=== PATIENT | female | born 1945 | race Hispanic/Latino ===

== ENCOUNTER 2019-06-11 12:07 | Outpatient (RCR) | payer MEDICARE ==
[2019-06-16] MEDS ORDERED: LIDOCAINE1 EACH (14:16)
[2019-06-16] MEDS ORDERED: LEVEMIR100 UNIT/1 (14:16)
[2019-06-16] MEDS ORDERED: CALCITRIOL0.5 MCG (14:16)
[2019-06-16] MEDS ORDERED: PREDNISONE10 MG (14:16)
[2019-06-16] MEDS ORDERED: LATANOPROST2.5 ML (14:16)
[2019-06-16] MEDS ORDERED: CINACALCET HCL30 MG (14:16)
[2019-06-16] MEDS ORDERED: PANTOPRAZOLE SO40 MG (14:16)
[2019-06-16] MEDS ORDERED: PREGABALIN50 MG (14:16)
[2019-06-16] MEDS ORDERED: CARVEDILOL6.25 MG (14:16)
[2019-06-16] MEDS ORDERED: SIMVASTATIN40 MG (14:16)
[2019-06-16] MEDS ORDERED: SULFAMETHOXAZO1 EACH (14:16)
[2019-06-16] MEDS ORDERED: SEVELAMER CARB800 MG (14:16)
[2019-06-16] MEDS ORDERED: NIFEDIAC CC60 MG (14:16)
== END 2019-06-18 ==
LOC: WCC 12:07
PROVIDERS: ATTEND Family Medicine Adult Medicine
DX: E11.69 Type 2 diabetes mellitus with other specified complication (principal); L89.620 Pressure ulcer of left heel, unstageable; L89.610 Pressure ulcer of right heel, unstageable; L98.499 Non-pressure chronic ulcer of skin of other sites with unspecified severity; L98.498 Non-pressure chronic ulcer of skin of other sites with other specified severity; I73.89 Other specified peripheral vascular diseases; I70.268 Atherosclerosis of native arteries of extremities with gangrene, other extremity; N18.6 End stage renal disease; I10 Essential (primary) hypertension; A49.8 Other bacterial infections of unspecified site; I65.8 Occlusion and stenosis of other precerebral arteries; E83.59 Other disorders of calcium metabolism; D63.1 Anemia in chronic kidney disease; G99.0 Autonomic neuropathy in diseases classified elsewhere; E03.8 Other specified hypothyroidism; Z01.810 Encounter for preprocedural cardiovascular examination; Z01.811 Encounter for preprocedural respiratory examination
CPT/HCPCS: 36415 ×3; 82948 ×3; 99212; 99213; G0277 ×3

== ENCOUNTER 2019-06-16 12:39 | Inpatient (IN) | payer MEDICARE ==
[2019-06-16] VITALS (11 sets, daily range): BP systolic 81–114; BP diastolic 34–64
[~2019-06-16] VITALS: Ht 152.4 cm; Wt 77.1 kg
[2019-06-16] MEDS ORDERED: SODIUM CHLORIDE 0.9% 500ML 500 ML IV STA (12:40)
--- OUTSIDE RECORDS SUMMARY | 2019-06-16 12:44 | XMS REPORT ---
[facility] Address Unknown Phone Unavailable Care Team Providers Care Design Analyst Name Role Phone Russell NICOLE Unavailable Unavailable VLADIMIR ELDER Unavailable Unavailable ADA BROOKS Unavailable Unavailable Anne NG Unavailable Unavailable IVON JACOBO Unavailable Unavailable TIMOTHY RO Unavailable Unavailable Problems This patient has no known problems. Allergies, Adverse Reactions, Alerts This patient has no known allergies or adverse reactions. Medications This patient has no known medications. Encounters Start Date/Time End Date/Time Encounter Type Admission Type Attending Clinicians Care Facility Care Department Encounter ID 2018-12-10 10:37:00 Inpatient U [facility] [id number] 2018-12-09 08:28:43 Outpatient [facility] JASMYN [id number] 2018-12-09 08:03:00 2018-12-09 08:03:00 Outpatient E [facility] [id number] Results Test Description Test Time Test Comments Text Results Atomic Results Result Comments CHEST 2 VIEWS 2019-05-19 16:18:00 [facility] [address] [place] [id number] Patient Name: KELSIE LOGAN DR MR #: [id number] : 1945 Age/Sex: 74/F Req #: [id number] Adm Physician: Ordered by: ROBBY NICOLE MD Report #: [id number] Location: RAD Room/Bed: Procedure: [id number] DX/CHEST 2 VIEWS Exam Date: 05/19/19 Exam Time: 1548 REPORT STATUS: Signed EXAMINATION: CHEST 2 VIEWS INDICATION: Preprocedural COMPARISON: None FINDINGS: LINES/TUBES:None LUNGS:The lungs are mildly hyperinflated. No focal consolidation. There is perihilar fullness and indistinctness of the pulmonary vasculature. PLEURA:No pleural effusion or pneumothorax. MEDIASTINUM:The heart is enlarged. Postoperative findings of prior CABG. Atherosclerotic calcifications of the thoracic aorta. BONES/SOFT TISSUES:No acute osseous injury. Sternotomy wires in place. ABDOMEN:No free air under the diaphragm. IMPRESSION: Cardiomegaly and mild pulmonary interstitial edema. No focal pneumonia. Signed by: Raeann Scott MD on 05/19/2019 4:20 PM Dictated By: RAEANN SCOTT MD 1620 Transcribed By: ERNESTO on 05/19/19 1 620 COPY TO: ROBBY NICOLE MD HAND BILATERAL 3 OR MORE VIEWS 2019-05-19 16:15:00 [place] [address] Patient Name: KELSIE LOGAN DR MR #: [id number] : 1945 Age/Sex: 74/F Req #: [id number] Adm Physician: Ordered by: ROBBY NICOLE MD Report #: [id number] Location: [facility] Room/Bed: Procedure: [id number] DX/HAND BILATERAL 3 OR MORE VIEWS Exam Date: Exam Time: REPORT STATUS: Signed EXAMINATION: HAND BILATERAL 3 OR MORE VIEWS INDICATION: Atherosclerotic arterial disease, peripheral ischemia. COMPARISON: None FINDINGS: No acute fracture or dislocation of either hand. Alignment appears anatomic. Mild scattered degenerative changes. Severe diffuse atherosclerotic arterial calcifications extending to the level of the digital arteries on both sides. IMPRESSION: No acute osseous injury. Severe diffuse atherosclerotic arterial calcifications extending to the level of the digital arteries on both sides. Signed by: Raeann Scott MD on 05/19/2019 4:18 PM Dictated By: RAEANN SCOTT MD 17 Transcribed By: ERNESTO on 05/19/191617 COPY TO: ROBBY NICOLE MD POCT-GLUCOSE METER 2019-04-21 11:43:00 POC-GLUCOSE METER (BEAKER) (test vgzw=0534) 398 mg/dL 70-110 : TESTED AT [address], [address]: Licensed Nursing Assistant/Director [employer] [id number] for SANTANA, JESSIKA POCT-GLUCOSE [id number] 08:37:00* Test Item Value Reference Range Comments POC-GLUCOSE METER (BEAKER) (test acyb=6357) 401 mg/dL 70-110 : Notified RN/MD: TESTED AT [address], [address]: Licensed Nursing Assistant/Director [employer] [id number] for SANTANA, JESSIKA POCT-GLUCOSE [id number] 21:09:00* Test Item Value Reference Range Comments POC-GLUCOSE METER (BEAKER) (test ednb=6988) 263 mg/dL 70-110 : Notified RN/MD: TESTED AT [address], [address]: Licensed Nursing Assistant/Director [employer] [id number] for NOELLE MAGANA POCT-GLUCOSE [id number] 17:22:00* Test Item Value Reference Range Comments POC-GLUCOSE METER (BEAKER) (test wczm=5311) 225 mg/dL 70-110 : TESTED AT [address], [address]: Licensed Nursing Assistant/Director [employer] [id number] for SUKHWINDER STAPLETON POCT-GLUCOSE [id number] 12:39:00* Test Item Value Reference Range Comments POC-GLUCOSE METER (BEAKER) (test poxj=8467) 339 mg/dL 70-110 : TESTED AT [address], [address]: Licensed Nursing Assistant/Director [employer] [id number] for SUKHWINDER STAPLETON DOUBLE-STRANDED DNA (DSDNA) [id number] 10:32:00* Test Item Value Reference Range Comments ANTI-DNA DS (BEAKER) (test pmbw=0930) Negative POCT-GLUCOSE [id number] 07:56:00* Test Item Value Reference Range Comments POC-GLUCOSE METER (BEAKER) (test weuo=5334) 266 mg/dL 70-110 : TESTED AT [place] [id number] [facility], [address]: Licensed Nursing Assistant/Director [employer] [id number] for SUKHWINDER STAPLETON BASIC METABOLIC [id number] 06:43:00* Test Item Value Reference Range Comments SODIUM (BEAKER) (test khjs=755) 138 meq/L 136-145 POTASSIUM (BEAKER) (test nxle=472) 4.2 meq/L 3.5-5.1 CHLORIDE (BEAKER) (test tmvd=508) 97 meq/L 98-107 CO2 (BEAKER) (test gkyd=082) 20 meq/L 22-29 BLOOD UREA NITROGEN (BEAKER) (test vxke=873) 74 mg/dL 7-21 CREATININE (BEAKER) (test kqma=343) 10.03 mg/dL 0.57-1.25 GLUCOSE RANDOM (BEAKER) (test ggbu=342) 311 mg/dL 70-105 CALCIUM (BEAKER) (test lcrr=054) 8.0 mg/dL 8.4-10.2 EGFR (BEAKER) (test wdus=1138) 4 mL/min/1.73 sq m ESTIMATED GFR IS NOT ACCURATE CREATININE CLEARANCE IN PREDICTING GLOMERULAR FILTRATION RATE. ESTIMATED GFR IS NOT APPLICABLE FOR DIALYSIS PATIENTS. VANCOMYCIN LEVEL, [id number] 06:36:00* Test Item Value Reference Range Comments VANCOMYCIN RANDOM (BEAKER) (test pkyv=585) 29.8 ug/mL Reference Range: No [id number] 06:36:00* Test Item Value Reference Range Comments PHOSPHORUS (BEAKER) (test wolp=564) 6.4 mg/dL 2.3-4.7 CBC W/PLT COUNT & AUTO [id number] 05:33:00* Test Item Value Reference Range Comments WHITE BLOOD CELL COUNT (BEAKER) (test ctgs=945) 10.7 K/ L 3.5-10.5 RED BLOOD CELL COUNT (BEAKER) (test kxrc=539) 3.33 M/ L 3.93-5.22 HEMOGLOBIN (BEAKER) (test wyit=962) 9.1 GM/DL 11.2-15.7 HEMATOCRIT (BEAKER) (test vndw=853) 32.7 % 34.1-44.9 MEAN CORPUSCULAR VOLUME (BEAKER) (test vqfs=969) 98.2 fL 79.4-94.8 DISCORDANT MCV RESULT COMPARED TO PREVIOUS RESULT; CLINICAL CORRELATION REQUIRED. MEAN CORPUSCULAR HEMOGLOBIN (BEAKER) (test boar=613) 27.3 pg 25.6-32.2 MEAN CORPUSCULAR HEMOGLOBIN CONC (BEAKER) (test snah=086) 27.8 GM/DL 32.2-35.5 RED CELL DISTRIBUTION WIDTH (BEAKER) (test clod=714) 17.2 % 11.7-14.4 PLATELET COUNT (BEAKER) (test rqck=799) 158 K/CU MM 150-450 MEAN PLATELET VOLUME (BEAKER) (test brdj=143) 12.2 fL 9.4-12.3 NUCLEATED RED BLOOD CELLS (BEAKER) (test zrmp=837) 0 /100 WBC 0-0 NEUTROPHILS RELATIVE PERCENT (BEAKER) (test jnwv=947) 87 % LYMPHOCYTES RELATIVE PERCENT (BEAKER) (test iwbf=376) 8 % MONOCYTES RELATIVE PERCENT (BEAKER) (test mpql=642) 4 % EOSINOPHILS RELATIVE PERCENT (BEAKER) (test yijh=947) 0 % BASOPHILS RELATIVE PERCENT (BEAKER) (test kdec=899) 0 % NEUTROPHILS ABSOLUTE COUNT (BEAKER) (test xcif=339) 9.29 K/ L 1.56-6.13 LYMPHOCYTES ABSOLUTE COUNT (BEAKER) (test pesd=947) 0.85 K/ L 1.18-3.74 MONOCYTES ABSOLUTE COUNT (BEAKER) (test yrvv=086) 0.38 K/ L 0.24-0.36 EOSINOPHILS ABSOLUTE COUNT (BEAKER) (test dinq=434) 0.00 K/ L 0.04-0.36 BASOPHILS ABSOLUTE COUNT (BEAKER) (test dzrb=866) 0.02 K/ L 0.01-0.08 IMMATURE GRANULOCYTES-RELATIVE PERCENT (BEAKER) (test rjll=0927) 1 % 0-1 POCT-GLUCOSE [id number] 21:17:00* Test Item Value Reference Range Comments POC-GLUCOSE METER (BEAKER) (test eaac=6515) 246 mg/dL 70-110 : Notified RN/MD: TESTED AT [address], [address]: Licensed Nursing Assistant/Director [employer] [id number] for NOELLE MAGANA POCT-GLUCOSE [id number] 17:06:00* Test Item Value Reference Range Comments POC-GLUCOSE METER (BEAKER) (test alhy=2969) 247 mg/dL 70-110 : TESTED AT [address], [address]: Licensed Nursing Assistant/Director [employer] [id number] for SUKHWINDER STAPLETON POCT-GLUCOSE [id number] 12:31:00* Test Item Value Reference Range Comments POC-GLUCOSE METER (BEAKER) (test elvs=0158) 309 mg/dL 70-110 : TESTED AT [address], [address]: Licensed Nursing Assistant/Director [employer] [id number] for SUKHWINDER STAPLETON CT, CTANGIO EXTREMITY, UPPER, [id number] 10:14:00Addendum BeginsREPORT STATUS:A ADDENDUM: I agree with the previously described non vascular findings. Additional findings:1. Right upper lobe 0.5 cm solid nodule and middle lobe 0.4 cm solid nodule.Patients at low risk for lung cancer: No routine follow-upPatients at high risk for lung cancer: Optional CT at 12 months (consider follow-up if suspicious morphology and/or located in upper lobe, otherwise no follow-up). If stable at 12 months, no further follow-up.2. Ascites. Signed: Markos Araya MDReport Verified Date/Time: 04/19/2019 10:14:48 Reading Location: [place] [address] Angio Body Reading RoomAddendum EndsAddendum BeginsThis addendum contains interpretation of the head and neck portions of the exam, included because the patient's arms were positioned above the patient's head during the exam. There is no CT evidence of intracranial hemorrhage, hydrocephalus, or mass effect. Images are nondiagnostic for territorial infarct, as the diane-white differentiation is lost due to low-dose technique. No evidence of sinusitis. Skull is intact. Degenerative changes of the cervical spine without acute fracture or aggressive osseous lesions. No discrete cervical mass, fluid collection, or lymphadenopathy Addendum EndsFINAL REPORT CTA Aorta - Chest and upper extremity runoff : 04/15/2019 6:58 PM. Com parison: None available. History: 74 years old Female with ESRD, diabetes, CAD status post ACB, carotid artery disease status post left carotid stent 2009 and right carotid stent 2012 now coming with two month history of progressive bilat eral hand pain and discoloration. Evaluated for further treatment options. Indic ation: Clinically suspected peripheral vascular disease. This study is performed in an attempt to avoid an invasive procedure. There is clinical need to define thoracic aortic anatomy. Technique: Multi-detector CT technology was employed ( sensation 64 scanner). Spiral acquisition before and during intravenous contrast administration. Images were obtained before and during the dynamic passage of i ntravenous contrast material. Multi-planar 3-D volume-rendering reconstruction was performed using an independent workstation interactively by the interpreting physician as well as the 3-D specialist for optimal visualization of the thorac ic aorta as well as its proximal branches. Please refer to the contrast sheet sc anned in the [employer] system for the amount and route of contrast given. This exam w as performed according to our departmental dose-optimization programme, which in cludes automated exposure control, adjustment of the mA and/or kV according to p atient size and/or use of iterative reconstruction technique. Dose modulation, i terative reconstruction, and/or weight based adjustment of the mA/kV was utilize d to reduce the radiation dose to as low as reasonably achievable. RESULT:Potent ial study limitations: None. CHEST: The visualized thyroid gland appears unrema rkable. The chest wall is remarkable for prior median sternotomy with intact nyasia rnal suture wires. The mediastinum is unremarkable. There are small mediastinal lymph nodes, however not pathologic by size criteria. The pericardium appears unremarkable. The pulmonary arteries are normal. The lung windows: Diffuse mil d to moderate bilateral groundglass opacification with trivial bilateral pleural effusion. The central airways are patent. There is a 4 mm noncalcified nodule in the right upper lobe (image 412) and a 3 mm noncalcified nodule in the right middle lobe (image 44 nine). The cardiac chambers have normal atrioventricular and ventriculoarterial concordance, and systemic and pulmonary venous return. T he cardiac chamber sizes are notable for mild biatrial enlargement. The coronar y arteries have normal origins and courses. There are severe coronary calcifica tions and a GOINS graft to the LAD and SVG graft to the RCA identified, though th is study was not optimized for coronary artery evaluation. VASCULAR WITH ADVANCE D 3-D OFFLINE POST-PROCESSING:The aortic valve is trileaflet. The leaflets are mildly calcified. The aortic root is symmetric and normal in dimension, and is mildly calcified. The sinotubular junction is preserved. The ascending thoracic aorta and aortic arch is normal in course and caliber, with mild to moderate ca lcific changes. The arch vessel branching pattern is normal. The descending tho racic aorta is normal in course and caliber with mild to moderate diffuse calcif ic atherosclerotic changes. Also there is protruding atheroma at the diaphragmat ic segment of the descending thoracic aorta with a maximal thickness of 4 mm and the length of the protruding atheroma measuring 1 cm. Patent bilateral carotid artery stents with mild instant re-stenosis involving the right carotid artery. The right subclavian artery has moderate circumferential calcification involving the ostium with mild luminal stenosis, the minimal luminal diameter measuring 5 .6 x 5.7 mm. Thereafter the right subclavian has mild calcification with no sign ificant luminal stenosis. The right axillary artery and brachial artery are part ially visualized with minimal limitations from the blooming artifact of the IV c ontrast which was injected from the right antecubital vein. However with multipl kezia reconstruction there was no clear evidence of stenosis involving the axilla ry and brachial arteries there is mild to moderate diffuse calcific atherosclero tic changes throughout the course. There is diffuse severe calcification involvi ng the right radial and ulnar arteries along with palmar arch and palmar branche s, bilaterally (the extent of calcification was well seen on a noncontrast CT sc an) significantly limiting the assessment of luminal patency. Also there is a fo cami segment near the radial head. The artery has no calcification and no contras t opacification suggestive of subtotally occluded right radial artery. The left subclavian artery is mildly ectatic at its origin with moderate calcific athero sclerotic changes with a minimal luminal diameter measuring 8.1 x 10 mm, thereaf ter the subclavian artery is mildly calcified with normal caliber. The AV fistul a noted near the left distal brachial artery. The left axillary artery and brach ial artery are widely patent with mild calcific atherosclerotic changes. Again t here is severe diffuse calcification involving the right radial and ulnar arteri es along with palmar arch and palmar branches bilaterally significantly limiting the assessment of luminal patency. There is no acute aortic pathology, such as dissection, intramural hematoma, or contained rupture. Loss Control Representative dimensions of the thoracic aorta are as follows:*2.8 cm at the sinuses of Valsalva (measu red [id number]-[id number]-bujxf)*2.9 cm in the mid-ascending aorta*3.0 cm at the distal ascen ding aorta*2.5 cm at the mid-transverse arch*2.1 cm at the proximal descending t horacic aorta*2.1 cm at the diaphragmatic hiatus ABDOMEN:The limited images of the upper abdomen reveal no abnormalities of the imaged organs. IMPRESSION: 1. There is diffuse severe calcification involving the right and left radial and ul herlinda arteries along with palmar arch and palmar branches (the extent of calcifica tion was well seen on a noncontrast CT scan) significantly limiting the assessme nt of luminal patency. 2. The thoracic aorta is normal in course and caliber wit h mild to moderate calcification. Also there is protruding atheroma at the diaph ragmatic segment of the descending thoracic aorta with a maximal thickness of 4 mm and the length of the protruding atheroma measuring 1 cm. There is no evidenc e of acute aortic pathology, specifically, there is no dissection, intramural he matoma, or contained rupture. Other findings as described above. 3. Patent bila teral carotid artery stents with mild instant re-stenosis involving the right ca rotid artery. An addendum will be dictated regarding the non-vascular findings b y the Rn Heart Radiologist. Signed: Jamir Hayes MDReport Verified Date/Ti me: 04/16/2019 18:31:00 , CTA, [id number] 10:14:00Addendum BeginsREPORT STATUS:A ADDENDUM: I agree with the previously described non vascular findings. Additional findings:1. Right upper lobe 0.5 cm solid nodule and middle lobe 0.4 cm solid nodule.Patients at low risk for lung cancer: No routine follow-upPatients at high risk for lung cancer: Optional CT at 12 months (consider follow-up if suspicious morphology and/or located in upper lobe, otherwise no follow-up). If stable at 12 months, no further follow-up.2. Ascites. Signed: Markos Arayaeport Verified Date/Time: 04/19/2019 10:14:48 Reading Location: [place] [address] Angio Body Reading RoomAddendum EndsAddendum BeginsREPORT STATUS:A ADDENDUM: I agree with the previously described non vascular findings. Additional findings:1. Right upper l obe 0.5 cm solid nodule and middle lobe 0.4 cm solid nodule.Patients at low risk for lung cancer: No routine follow-upPatients at high risk for lung cancer: Opt ional CT at 12 months (consider follow-up if suspicious morphology and/or locate d in upper lobe, otherwise no follow-up). If stable at 12 months, no further fo llow-up.2. Ascites. Signed: Markos Arayaeport Verified Date/Time: 04/19/20 19 10:14:48 Reading Location: [place] [address] Angio Body Reading RoomAddendum EndsAd dendum BeginsREPORT STATUS:A ADDENDUM: I agree with the p reviously described non vascular findings. Additional findings:1. Right upper lo be 0.5 cm solid nodule and middle lobe 0.4 cm solid nodule.Patients at low risk for lung cancer: No routine follow-upPatients at high risk for lung cancer: Opti onal CT at 12 months (consider follow-up if suspicious morphology and/or located in upper lobe, otherwise no follow-up). If stable at 12 months, no further fol low-up.2. Ascites. Signed: Markos Arayaeport Verified Date/Time: 9 10:14:48 Reading Location: [place] [address] Angio Body Reading RoomAddendum EndsAdd endum BeginsThis addendum contains interpretation of the head and neck portions of the exam, included because the patient's arms were positioned above the patie nt's head during the exam. There is no CT evidence of intracranial hemorrhage, hydrocephalus, or mass effect. Images are nondiagnostic for territorial infarct, as the diane-white differentiation is lost due to low-dose technique. No evidence of sinusitis. Skull is intact. Degenerative changes of the cervical spine w ithout acute fracture or aggressive osseous lesions. No discrete cervical mass, fluid collection, or lymphadenopathy Addendum EndsFINAL REPORT PATIENT ID: [id number] CTA Aorta - Chest and upper extremity runoff : 04/15/2019 6:58 PM. Sanju rison: None available. History: 74 years old Female with ESRD, diabetes, CAD s tatus post ACB, carotid artery disease status post left carotid stent 2009 and r ight carotid stent 2012 now coming with two month history of progressive bilater al hand pain and discoloration. Evaluated for further treatment options. Indicat ion: Clinically suspected peripheral vascular disease. This study is performed i n an attempt to avoid an invasive procedure. There is clinical need to define th oracic aortic anatomy. Technique: Multi-detector CT technology was employed (se nsation 64 scanner). Spiral acquisition before and during intravenous contrast a dministration. Images were obtained before and during the dynamic passage of int ravenous contrast material. Multi-planar 3-D volume-rendering reconstruction wa s performed using an independent workstation interactively by the interpreting p jose as well as the 3-D specialist for optimal visualization of the thoracic aorta as well as its proximal branches. Please refer to the contrast sheet scan margarita in the [employer] system for the amount and route of contrast given. This exam was performed according to our departmental dose-optimization programme, which incl udes automated exposure control, adjustment of the mA and/or kV according to pat ient size and/or use of iterative reconstruction technique. Dose modulation, ite rative reconstruction, and/or weight based adjustment of the mA/kV was utilized to reduce the radiation dose to as low as reasonably achievable. RESULT:Potentia l study limitations: None. CHEST: The visualized thyroid gland appears unremark able. The chest wall is remarkable for prior median sternotomy with intact morejon al suture wires. The mediastinum is unremarkable. There are small mediastinal l ymph nodes, however not pathologic by size criteria. The pericardium appears un remarkable. The pulmonary arteries are normal. The lung windows: Diffuse mild to moderate bilateral groundglass opacification with trivial bilateral pleural e ffusion. The central airways are patent. There is a 4 mm noncalcified nodule in the right upper lobe (image 412) and a 3 mm noncalcified nodule in the right mi ddle lobe (image 44 nine). The cardiac chambers have normal atrioventricular an d ventriculoarterial concordance, and systemic and pulmonary venous return. The cardiac chamber sizes are notable for mild biatrial enlargement. The coronary arteries have normal origins and courses. There are severe coronary calcificati ons and a GOINS graft to the LAD and SVG graft to the RCA identified, though this study was not optimized for coronary artery evaluation. VASCULAR WITH ADVANCED 3-D OFFLINE POST-PROCESSING:The aortic valve is trileaflet. The leaflets are mi ldly calcified. The aortic root is symmetric and normal in dimension, and is mi ldly calcified. The sinotubular junction is preserved. The ascending thoracic a nancy and aortic arch is normal in course and caliber, with mild to moderate calc ific changes. The arch vessel branching pattern is normal. The descending thora cic aorta is normal in course and caliber with mild to moderate diffuse calcific atherosclerotic changes. Also there is protruding atheroma at the diaphragmatic segment of the descending thoracic aorta with a maximal thickness of 4 mm and t he length of the protruding atheroma measuring 1 cm. Patent bilateral carotid ar jazmyn stents with mild instant re-stenosis involving the right carotid artery. Th e right subclavian artery has moderate circumferential calcification involving t he ostium with mild luminal stenosis, the minimal luminal diameter measuring 5.6 x 5.7 mm. Thereafter the right subclavian has mild calcification with no signif icant luminal stenosis. The right axillary artery and brachial artery are partia lly visualized with minimal limitations from the blooming artifact of the IV con trast which was injected from the right antecubital vein. However with multiplan ar reconstruction there was no clear evidence of stenosis involving the axillary and brachial arteries there is mild to moderate diffuse calcific atherosclerotic changes throughout the course. There is diffuse severe calcification involving the right radial and ulnar arteries along with palmar arch and palmar branches, bilaterally (the extent of calcification was well seen on a noncontrast CT scan) significantly limiting the assessment of luminal patency. Also there is a focal segment near the radial head. The artery has no calcification and no contrast opacification suggestive of subtotally occluded right radial artery. The left s ubclavian artery is mildly ectatic at its origin with moderate calcific atherosc lerotic changes with a minimal luminal diameter measuring 8.1 x 10 mm, thereafte r the subclavian artery is mildly calcified with normal caliber. The AV fistula noted near the left distal brachial artery. The left axillary artery and brachia l artery are widely patent with mild calcific atherosclerotic changes. Again the re is severe diffuse calcification involving the right radial and ulnar arteries along with palmar arch and palmar branches bilaterally significantly limiting t he assessment of luminal patency. There is no acute aortic pathology, such as d issection, intramural hematoma, or contained rupture. Loss Control Representative dimensions of the thoracic aorta are as follows:*2.8 cm at the sinuses of Valsalva (measure d dlxka-jy-tqpht)*2.9 cm in the mid-ascending aorta*3.0 cm at the distal ascendi ng aorta*2.5 cm at the mid-transverse arch*2.1 cm at the proximal descending tho racic aorta*2.1 cm at the diaphragmatic hiatus ABDOMEN:The limited images of th e upper abdomen reveal no abnormalities of the imaged organs. IMPRESSION: 1. Th ere is diffuse severe calcification involving the right and left radial and ulna r arteries along with palmar arch and palmar branches (the extent of calcificati on was well seen on a noncontrast CT scan) significantly limiting the assessment of luminal patency. 2. The thoracic aorta is normal in course and caliber with mild to moderate calcification. Also there is protruding atheroma at the diaphra gmatic segment of the descending thoracic aorta with a maximal thickness of 4 mm and the length of the protruding atheroma measuring 1 cm. There is no evidence of acute aortic pathology, specifically, there is no dissection, intramural beau rip, or contained rupture. Other findings as described above. 3. Patent bilate ral carotid artery stents with mild instant re-stenosis involving the right tracy tid artery. An addendum will be dictated regarding the non-vascular findings by the Rn Heart Radiologist. Signed: Jamir Hayes MDReport Verified Date/Time : 04/16/2019 12:27:51 , CTANGIO EXTREMITY, UPPER, [id number] 10:14:00 Addendum BeginsREPORT STATUS:A ADDENDUM: I agree with the previously described non vascular findings. Additional findings:1. Right upper lobe 0.5 cm solid nodule and middle lobe 0.4 cm solid nodule.Patients at low ris k for lung cancer: No routine follow-upPatients at high risk for lung cancer: Op tional CT at 12 months (consider follow-up if suspicious morphology and/or locat ed in upper lobe, otherwise no follow-up). If stable at 12 months, no further f ollow-up.2. Ascites. Signed: Markos Arayaeport Verified Date/Time: 019 10:14:48 Reading Location: [place] [address] Angio Body Reading RoomAddendum EndsA ddendum BeginsREPORT STATUS:A ADDENDUM: I agree with the previously described non vascular findings. Additional findings:1. Right upper l obe 0.5 cm solid nodule and middle lobe 0.4 cm solid nodule.Patients at low risk for lung cancer: No routine follow-upPatients at high risk for lung cancer: Opt ional CT at 12 months (consider follow-up if suspicious morphology and/or locate d in upper lobe, otherwise no follow-up). If stable at 12 months, no further fo llow-up.2. Ascites. Signed: Markos Arayaeport Verified Date/Time: 04/19/20 19 10:14:48 Reading Location: [place] [address] Angio Body Reading RoomAddendum EndsAd dendum BeginsREPORT STATUS:A ADDENDUM: I agree with the p reviously described non vascular findings. Additional findings:1. Right upper lo be 0.5 cm solid nodule and middle lobe 0.4 cm solid nodule.Patients at low risk for lung cancer: No routine follow-upPatients at high risk for lung cancer: Opti onal CT at 12 months (consider follow-up if suspicious morphology and/or located in upper lobe, otherwise no follow-up). If stable at 12 months, no further fol low-up.2. Ascites. Signed: Markos Araya MDReport Verified Date/Time: 9 10:14:48 Reading Location: [place] [address] Angio Body Reading RoomAddendum EndsAdd endum BeginsThis addendum contains interpretation of the head and neck portions of the exam, included because the patient's arms were positioned above the patie nt's head during the exam. There is no CT evidence of intracranial hemorrhage, hydrocephalus, or mass effect. Images are nondiagnostic for territorial infarct, as the diane-white differentiation is lost due to low-dose technique. No evidence of sinusitis. Skull is intact. Degenerative changes of the cervical spine w ithout acute fracture or aggressive osseous lesions. No discrete cervical mass, fluid collection, or lymphadenopathy Addendum EndsFINAL REPORT PATIENT ID: [id number] CTA Aorta - Chest and upper extremity runoff : 04/15/2019 6:58 PM. Sanju rison: None available. History: 74 years old Female with ESRD, diabetes, CAD s tatus post ACB, carotid artery disease status post left carotid stent 2009 and r ight carotid stent 2012 now coming with two month history of progressive bilater al hand pain and discoloration. Evaluated for further treatment options. Indicat ion: Clinically suspected peripheral vascular disease. This study is performed i n an attempt to avoid an invasive procedure. There is clinical need to define th oracic aortic anatomy. Technique: Multi-detector CT technology was employed (se nsation 64 scanner). Spiral acquisition before and during intravenous contrast a dministration. Images were obtained before and during the dynamic passage of int ravenous contrast material. Multi-planar 3-D volume-rendering reconstruction wa s performed using an independent workstation interactively by the interpreting p jose as well as the 3-D specialist for optimal visualization of the thoracic aorta as well as its proximal branches. Please refer to the contrast sheet scan margarita in the [employer] system for the amount and route of contrast given. This exam was performed according to our departmental dose-optimization programme, which incl udes automated exposure control, adjustment of the mA and/or kV according to pat ient size and/or use of iterative reconstruction technique. Dose modulation, ite rative reconstruction, and/or weight based adjustment of the mA/kV was utilized to reduce the radiation dose to as low as reasonably achievable. RESULT:Potentia l study limitations: None. CHEST: The visualized thyroid gland appears unremark able. The chest wall is remarkable for prior median sternotomy with intact morejon al suture wires. The mediastinum is unremarkable. There are small mediastinal l ymph nodes, however not pathologic by size criteria. The pericardium appears un remarkable. The pulmonary arteries are normal. The lung windows: Diffuse mild to moderate bilateral groundglass opacification with trivial bilateral pleural e ffusion. The central airways are patent. There is a 4 mm noncalcified nodule in the right upper lobe (image 412) and a 3 mm noncalcified nodule in the right mi ddle lobe (image [id number]). The cardiac chambers have normal atrioventricular an d ventriculoarterial concordance, and systemic and pulmonary venous return. The cardiac chamber sizes are notable for mild biatrial enlargement. The coronary arteries have normal origins and courses. There are severe coronary calcificati ons and a GOINS graft to the LAD and SVG graft to the RCA identified, though this study was not optimized for coronary artery evaluation. VASCULAR WITH ADVANCED 3-D OFFLINE POST-PROCESSING:The aortic valve is trileaflet. The leaflets are mi ldly calcified. The aortic root is symmetric and normal in dimension, and is mi ldly calcified. The sinotubular junction is preserved. The ascending thoracic a nancy and aortic arch is normal in course and caliber, with mild to moderate calc ific changes. The arch vessel branching pattern is normal. The descending thora cic aorta is normal in course and caliber with mild to moderate diffuse calcific atherosclerotic changes. Also there is protruding atheroma at the diaphragmatic segment of the descending thoracic aorta with a maximal thickness of 4 mm and t he length of the protruding atheroma measuring 1 cm. Patent bilateral carotid ar jazmyn stents with mild instant re-stenosis involving the right carotid artery. Th e right subclavian artery has moderate circumferential calcification involving t he ostium with mild luminal stenosis, the minimal luminal diameter measuring 5.6 x 5.7 mm. Thereafter the right subclavian has mild calcification with no signif icant luminal stenosis. The right axillary artery and brachial artery are partia lly visualized with minimal limitations from the blooming artifact of the IV con trast which was injected from the right antecubital vein. However with multiplan ar reconstruction there was no clear evidence of stenosis involving the axillary and brachial arteries there is mild to moderate diffuse calcific atherosclerotic changes throughout the course. There is diffuse severe calcification involving the right radial and ulnar arteries along with palmar arch and palmar branches, bilaterally (the extent of calcification was well seen on a noncontrast CT scan) significantly limiting the assessment of luminal patency. Also there is a focal segment near the radial head. The artery has no calcification and no contrast opacification suggestive of subtotally occluded right radial artery. The left s ubclavian artery is mildly ectatic at its origin with moderate calcific atherosc lerotic changes with a minimal luminal diameter measuring 8.1 x 10 mm, thereafte r the subclavian artery is mildly calcified with normal caliber. The AV fistula noted near the left distal brachial artery. The left axillary artery and brachia l artery are widely patent with mild calcific atherosclerotic changes. Again the re is severe diffuse calcification involving the right radial and ulnar arteries along with palmar arch and palmar branches bilaterally significantly limiting t he assessment of luminal patency. There is no acute aortic pathology, such as d issection, intramural hematoma, or contained rupture. Loss Control Representative dimensions of the thoracic aorta are as follows:*2.8 cm at the sinuses of Valsalva (measure d qjjxj-wd-yxepg)*2.9 cm in the mid-ascending aorta*3.0 cm at the distal ascendi ng aorta*2.5 cm at the mid-transverse arch*2.1 cm at the proximal descending tho racic aorta*2.1 cm at the diaphragmatic hiatus ABDOMEN:The limited images of th e upper abdomen reveal no abnormalities of the imaged organs. IMPRESSION: 1. Th ere is diffuse severe calcification involving the right and left radial and ulna r arteries along with palmar arch and palmar branches (the extent of calcificati on was well seen on a noncontrast CT scan) significantly limiting the assessment of luminal patency. 2. The thoracic aorta is normal in course and caliber with mild to moderate calcification. Also there is protruding atheroma at the diaphra gmatic segment of the descending thoracic aorta with a maximal thickness of 4 mm and the length of the protruding atheroma measuring 1 cm. There is no evidence of acute aortic pathology, specifically, there is no dissection, intramural beau rip, or contained rupture. Other findings as described above. 3. Patent bilate ral carotid artery stents with mild instant re-stenosis involving the right tracy tid artery. An addendum will be dictated regarding the non-vascular findings by the Rn Heart Radiologist. Signed: Jamir Hayes Verified Date/Time : 04/16/2019 12:27:51 -GLUCOSE [id number] 08:02:00* Test Item Value Reference Range Comments POC-GLUCOSE METER (BEAKER) (test nddt=7968) 310 mg/dL 70-110 : TESTED AT [facility] [address] [facility], [address]: Licensed Nursing Assistant/Director [employer] [id number] for SUKHWINDER STAPLETON BASIC METABOLIC [id number] 07:48:00* Test Item Value Reference Range Comments SODIUM (BEAKER) (test hdvm=945) 134 meq/L 136-145 POTASSIUM (BEAKER) (test piep=159) 4.5 meq/L 3.5-5.1 CHLORIDE (BEAKER) (test jmcv=965) 93 meq/L 98-107 CO2 (BEAKER) (test nisq=349) 20 meq/L 22-29 BLOOD UREA NITROGEN (BEAKER) (test hdtf=909) 68 mg/dL 7-21 CREATININE (BEAKER) (test okuf=872) 10.04 mg/dL 0.57-1.25 GLUCOSE RANDOM (BEAKER) (test fhwg=630) 334 mg/dL 70-105 CALCIUM (BEAKER) (test maoi=301) 8.1 mg/dL 8.4-10.2 EGFR (BEAKER) (test smmd=7718) 4 mL/min/1.73 sq m ESTIMATED GFR IS NOT ACCURATE CREATININE CLEARANCE IN PREDICTING GLOMERULAR FILTRATION RATE. ESTIMATED GFR IS NOT APPLICABLE FOR DIALYSIS PATIENTS. CBC W/PLT COUNT & AUTO [id number] 07:10:00* Test Item Value Reference Range Comments WHITE BLOOD CELL COUNT (BEAKER) (test gplq=150) 12.2 K/ L 3.5-10.5 RED BLOOD CELL COUNT (BEAKER) (test beyr=374) 3.53 M/ L 3.93-5.22 HEMOGLOBIN (BEAKER) (test dkty=377) 9.5 GM/DL 11.2-15.7 HEMATOCRIT (BEAKER) (test dqqh=298) 32.8 % 34.1-44.9 MEAN CORPUSCULAR VOLUME (BEAKER) (test gikm=802) 92.9 fL 79.4-94.8 MEAN CORPUSCULAR HEMOGLOBIN (BEAKER) (test mxww=655) 26.9 pg 25.6-32.2 MEAN CORPUSCULAR HEMOGLOBIN CONC (BEAKER) (test wzaz=080) 29.0 GM/DL 32.2-35.5 RED CELL DISTRIBUTION WIDTH (BEAKER) (test ackj=078) 17.2 % 11.7-14.4 PLATELET COUNT (BEAKER) (test bgna=771) 145 K/CU MM 150-450 MEAN PLATELET VOLUME (BEAKER) (test dxmk=505) 12.5 fL 9.4-12.3 NUCLEATED RED BLOOD CELLS (BEAKER) (test exga=766) 0 /100 WBC 0-0 NEUTROPHILS RELATIVE PERCENT (BEAKER) (test naxt=040) 90 % LYMPHOCYTES RELATIVE PERCENT (BEAKER) (test nlvv=066) 7 % MONOCYTES RELATIVE PERCENT (BEAKER) (test zauq=517) 2 % EOSINOPHILS RELATIVE PERCENT (BEAKER) (test wnhz=401) 0 % BASOPHILS RELATIVE PERCENT (BEAKER) (test gsdz=932) 0 % NEUTROPHILS ABSOLUTE COUNT (BEAKER) (test nvmn=091) 11.03 K/ L 1.56-6.13 LYMPHOCYTES ABSOLUTE COUNT (BEAKER) (test ebbj=806) 0.85 K/ L 1.18-3.74 MONOCYTES ABSOLUTE COUNT (BEAKER) (test nvfo=692) 0.21 K/ L 0.24-0.36 EOSINOPHILS ABSOLUTE COUNT (BEAKER) (test ccla=309) 0.00 K/ L 0.04-0.36 BASOPHILS ABSOLUTE COUNT (BEAKER) (test vyyj=294) 0.01 K/ L 0.01-0.08 IMMATURE GRANULOCYTES-RELATIVE PERCENT (BEAKER) (test ogcn=7962) 1 % 0-1 POCT-GLUCOSE [id number] 22:24:00* Test Item Value Reference Range Comments POC-GLUCOSE METER (BEAKER) (test hxsv=1524) 300 mg/dL 70-110 : TESTED AT [place] [id number] [facility], [address]: Licensed Nursing Assistant/Director [employer] [id number] for SANTHOSH MORROW POCT-GLUCOSE [id number] 18:25:00* Test Item Value Reference Range Comments POC-GLUCOSE METER (BEAKER) (test lnfx=8650) 238 mg/dL 70-110 : TESTED AT [place] [id number] [facility], [address]: Licensed Nursing Assistant/Director [employer] [id number] for STEFANY DEMPSEY POCT-GLUCOSE [id number] 11:48:00* Test Item Value Reference Range Comments POC-GLUCOSE METER (BEAKER) (test dres=1483) 345 mg/dL 70-110 : TESTED AT [facility] [address] [facility], [address]: Licensed Nursing Assistant/Director [employer] [id number] for STEFANY DEMPSEY BASIC METABOLIC [id number] 09:51:00* Test Item Value Reference Range Comments SODIUM (BEAKER) (test tejs=362) 136 meq/L 136-145 POTASSIUM (BEAKER) (test bxdq=063) 4.6 meq/L 3.5-5.1 CHLORIDE (BEAKER) (test ddvm=512) 93 meq/L 98-107 CO2 (BEAKER) (test xmug=953) 25 meq/L 22-29 BLOOD UREA NITROGEN (BEAKER) (test qoid=601) 65 mg/dL 7-21 CREATININE (BEAKER) (test xmrp=673) 10.51 mg/dL 0.57-1.25 GLUCOSE RANDOM (BEAKER) (test yznc=816) 404 mg/dL 70-105 CALCIUM (BEAKER) (test dvca=660) 8.5 mg/dL 8.4-10.2 EGFR (BEAKER) (test cqml=7282) 4 mL/min/1.73 sq m ESTIMATED GFR IS NOT ACCURATE CREATININE CLEARANCE IN PREDICTING GLOMERULAR FILTRATION RATE. ESTIMATED GFR IS NOT APPLICABLE FOR DIALYSIS PATIENTS. CBC W/PLT COUNT & AUTO [id number] 09:22:00* Test Item Value Reference Range Comments WHITE BLOOD CELL COUNT (BEAKER) (test awcl=919) 13.8 K/ L 3.5-10.5 RED BLOOD CELL COUNT (BEAKER) (test sjyd=778) 3.86 M/ L 3.93-5.22 HEMOGLOBIN (BEAKER) (test vxoq=274) 10.2 GM/DL 11.2-15.7 HEMATOCRIT (BEAKER) (test sexx=818) 35.4 % 34.1-44.9 MEAN CORPUSCULAR VOLUME (BEAKER) (test mhpy=767) 91.7 fL 79.4-94.8 MEAN CORPUSCULAR HEMOGLOBIN (BEAKER) (test utfw=569) 26.4 pg 25.6-32.2 MEAN CORPUSCULAR HEMOGLOBIN CONC (BEAKER) (test znid=891) 28.8 GM/DL 32.2-35.5 RED CELL DISTRIBUTION WIDTH (BEAKER) (test ftep=717) 17.2 % 11.7-14.4 PLATELET COUNT (BEAKER) (test bqog=492) 160 K/CU MM 150-450 MEAN PLATELET VOLUME (BEAKER) (test rdnb=067) 12.2 fL 9.4-12.3 NUCLEATED RED BLOOD CELLS (BEAKER) (test npvl=401) 0 /100 WBC 0-0 NEUTROPHILS RELATIVE PERCENT (BEAKER) (test ybwr=595) 91 % LYMPHOCYTES RELATIVE PERCENT (BEAKER) (test fckm=415) 7 % MONOCYTES RELATIVE PERCENT (BEAKER) (test ttxv=715) 2 % EOSINOPHILS RELATIVE PERCENT (BEAKER) (test crib=272) 0 % BASOPHILS RELATIVE PERCENT (BEAKER) (test tsia=699) 0 % NEUTROPHILS ABSOLUTE COUNT (BEAKER) (test qrsx=649) 12.54 K/ L 1.56-6.13 LYMPHOCYTES ABSOLUTE COUNT (BEAKER) (test veaw=780) 0.90 K/ L 1.18-3.74 MONOCYTES ABSOLUTE COUNT (BEAKER) (test ndwx=936) 0.27 K/ L 0.24-0.36 EOSINOPHILS ABSOLUTE COUNT (BEAKER) (test flsm=763) 0.00 K/ L 0.04-0.36 BASOPHILS ABSOLUTE COUNT (BEAKER) (test ibcv=617) 0.01 K/ L 0.01-0.08 IMMATURE GRANULOCYTES-RELATIVE PERCENT (BEAKER) (test pbzx=8043) 1 % 0-1 POCT-GLUCOSE [id number] 07:40:00* Test Item Value Reference Range Comments POC-GLUCOSE METER (BEAKER) (test vrlz=3222) 369 mg/dL 70-110 : TESTED AT [facility] [address] [facility], [address]: Licensed Nursing Assistant/Director [employer] [id number] for STEFANY DEMPSEY POCT-GLUCOSE [id number] 21:55:00* Test Item Value Reference Range Comments POC-GLUCOSE METER (BEAKER) (test wrqf=7552) 375 mg/dL 70-110 : TESTED AT [facility] [address] [facility], [address]: Licensed Nursing Assistant/Director [employer] [id number] for CRISTHIAN, SAUDATU POCT-GLUCOSE [id number] 17:43:00* Test Item Value Reference Range Comments POC-GLUCOSE METER (BEAKER) (test eyou=3230) 265 mg/dL 70-110 : TESTED AT [facility] [address] [facility], [address]: Licensed Nursing Assistant/Director [employer] [id number] for DEMPSEY, LAJADA POCT-GLUCOSE [id number] 11:39:00* Test Item Value Reference Range Comments POC-GLUCOSE METER (BEAKER) (test rbva=9164) 228 mg/dL 70-110 : TESTED AT [place] [id number] [facility], [address]: Licensed Nursing Assistant/Director [employer] [id number] for DEMPSEY, LAJADA POCT-GLUCOSE [id number] 08:29:00* Test Item Value Reference Range Comments POC-GLUCOSE METER (BEAKER) (test zdjt=0177) 318 mg/dL 70-110 : TESTED AT [address], [address]: Licensed Nursing Assistant/Director [employer] [id number] for DEMPSEY, LAJADA C-REACTIVE [id number] 08:13:00* Test Item Value Reference Range Comments C-REACTIVE PROTEIN (BEAKER) (test kgvr=265) 19.24 mg/dL 0.00-0.50 BASIC METABOLIC [id number] 08:13:00* Test Item Value Reference Range Comments SODIUM (BEAKER) (test hyhr=289) 137 meq/L 136-145 POTASSIUM (BEAKER) (test uocz=148) 4.3 meq/L 3.5-5.1 CHLORIDE (BEAKER) (test mzme=054) 96 meq/L 98-107 CO2 (BEAKER) (test ngyt=939) 21 meq/L 22-29 BLOOD UREA NITROGEN (BEAKER) (test gxxr=190) 58 mg/dL 7-21 CREATININE (BEAKER) (test xhsg=169) 10.35 mg/dL 0.57-1.25 GLUCOSE RANDOM (BEAKER) (test kubh=586) 344 mg/dL 70-105 CALCIUM (BEAKER) (test zwhd=705) 8.7 mg/dL 8.4-10.2 EGFR (BEAKER) (test xbiz=9661) 4 mL/min/1.73 sq m ESTIMATED GFR IS NOT ACCURATE CREATININE CLEARANCE IN PREDICTING GLOMERULAR FILTRATION RATE. ESTIMATED GFR IS NOT APPLICABLE FOR DIALYSIS PATIENTS. CBC W/PLT COUNT & AUTO [id number] 07:32:00* Test Item Value Reference Range Comments WHITE BLOOD CELL COUNT (BEAKER) (test actm=635) 16.1 K/ L 3.5-10.5 RED BLOOD CELL COUNT (BEAKER) (test nnur=232) 3.72 M/ L 3.93-5.22 HEMOGLOBIN (BEAKER) (test pvjf=420) 10.1 GM/DL 11.2-15.7 HEMATOCRIT (BEAKER) (test pmnj=931) 34.4 % 34.1-44.9 MEAN CORPUSCULAR VOLUME (BEAKER) (test qmvu=840) 92.5 fL 79.4-94.8 MEAN CORPUSCULAR HEMOGLOBIN (BEAKER) (test vzmw=275) 27.2 pg 25.6-32.2 MEAN CORPUSCULAR HEMOGLOBIN CONC (BEAKER) (test yorb=167) 29.4 GM/DL 32.2-35.5 RED CELL DISTRIBUTION WIDTH (BEAKER) (test dmcv=903) 17.2 % 11.7-14.4 PLATELET COUNT (BEAKER) (test gljr=617) 155 K/CU MM 150-450 MEAN PLATELET VOLUME (BEAKER) (test eglw=535) 12.5 fL 9.4-12.3 NUCLEATED RED BLOOD CELLS (BEAKER) (test vpod=113) 0 /100 WBC 0-0 NEUTROPHILS RELATIVE PERCENT (BEAKER) (test eoac=348) 87 % LYMPHOCYTES RELATIVE PERCENT (BEAKER) (test nywr=818) 12 % MONOCYTES RELATIVE PERCENT (BEAKER) (test frts=960) 1 % EOSINOPHILS RELATIVE PERCENT (BEAKER) (test svul=244) 0 % BASOPHILS RELATIVE PERCENT (BEAKER) (test adid=799) 0 % NEUTROPHILS ABSOLUTE COUNT (BEAKER) (test eiad=609) 14.03 K/ L 1.56-6.13 LYMPHOCYTES ABSOLUTE COUNT (BEAKER) (test fjdn=362) 1.86 K/ L 1.18-3.74 MONOCYTES ABSOLUTE COUNT (BEAKER) (test zrbq=961) 0.09 K/ L 0.24-0.36 EOSINOPHILS ABSOLUTE COUNT (BEAKER) (test gjdq=167) 0.00 K/ L 0.04-0.36 BASOPHILS ABSOLUTE COUNT (BEAKER) (test kcbi=301) 0.02 K/ L 0.01-0.08 IMMATURE GRANULOCYTES-RELATIVE PERCENT (BEAKER) (test cgwh=3334) 1 % 0-1 POCT-GLUCOSE [id number] 21:13:00* Test Item Value Reference Range Comments POC-GLUCOSE METER (BEAKER) (test oiog=9737) 205 mg/dL 70-110 : TESTED AT [address], [address]: Licensed Nursing Assistant/Director [employer] [id number] for SANTHOSH MORROW [id number] 14:36:00* Test Item Value Reference Range Comments PARTIAL THROMBOPLASTIN TIME (BEAKER) (test kvjk=432) 70.8 seconds 22.5-36.0 VANCOMYCIN LEVEL, [id number] 14:29:00* Test Item Value Reference Range Comments VANCOMYCIN RANDOM (BEAKER) (test civh=329) 15.2 ug/mL Reference Range: No [id number] 03:47:00* Test Item Value Reference Range Comments PARTIAL THROMBOPLASTIN TIME (BEAKER) (test hnui=498) 34.4 seconds 22.5-36.0 POCT-GLUCOSE [id number] 21:27:00* Test Item Value Reference Range Comments POC-GLUCOSE METER (BEAKER) (test zqtw=5841) 124 mg/dL 70-110 : TESTED AT [address], [address]: Licensed Nursing Assistant/Director [employer] [id number] for Ant Anderson [id number] 20:29:00* Test Item Value Reference Range Comments PARTIAL THROMBOPLASTIN TIME (BEAKER) (test bzqu=457) 40.8 seconds 22.5-36.0 HEMOGLOBIN AND [id number] 20:21:00* Test Item Value Reference Range Comments HEMOGLOBIN (BEAKER) (test tpyi=434) 8.7 GM/DL 11.2-15.7 HEMATOCRIT (BEAKER) (test yskd=806) 29.8 % 34.1-44.9 [id number] 16:34:00* Test Item Value Reference Range Comments PARTIAL THROMBOPLASTIN TIME (BEAKER) (test hrqg=833) > seconds 22.5-36.0 PERITONEAL DIALYSIS EFFLUENT [id number] 13:19:00* Test Item Value Reference Range Comments CULTURE (BEAKER) (test bvot=9510) No growth GRAM STAIN RESULT (BEAKER) (test rxzf=2317) <1+ White blood cells seen GRAM STAIN RESULT (BEAKER) (test ckjb=12820) No organisms seen ANTI-NUCLEAR ANTIBODY (ROSALBA)2019-04-15 08:57:00* Test Item Value Reference Range Comments ANTI-NUCLEAR ANTIBODY (ROSALBA) (BEAKER) (test wmbu=565) Positive Negative Test performed by IFA method.ROSALBA TITER AND [id number] 08:57:00* Test Item Value Reference Range Comments ROSALBA TITER (BEAKER) (test rinq=0699) :160 ROSALBA PATTERN (BEAKER) (test cbsa=1935) Speckled BASIC METABOLIC [id number] 07:45:00* Test Item Value Reference Range Comments SODIUM (BEAKER) (test itnz=463) 135 meq/L 136-145 POTASSIUM (BEAKER) (test qtxr=465) 3.5 meq/L 3.5-5.1 CHLORIDE (BEAKER) (test pxvs=798) 93 meq/L 98-107 CO2 (BEAKER) (test citx=494) 22 meq/L 22-29 BLOOD UREA NITROGEN (BEAKER) (test nlum=685) 64 mg/dL 7-21 CREATININE (BEAKER) (test wuga=200) 9.76 mg/dL 0.57-1.25 GLUCOSE RANDOM (BEAKER) (test xwhd=581) 350 mg/dL 70-105 CALCIUM (BEAKER) (test bahp=449) 8.2 mg/dL 8.4-10.2 EGFR (BEAKER) (test hvjv=7317) 4 mL/min/1.73 sq m ESTIMATED GFR IS NOT ACCURATE CREATININE CLEARANCE IN PREDICTING GLOMERULAR FILTRATION RATE. ESTIMATED GFR IS NOT APPLICABLE FOR DIALYSIS PATIENTS. [id number] 07:14:00* Test Item Value Reference Range Comments PARTIAL THROMBOPLASTIN TIME (BEAKER) (test twyi=998) 61.5 seconds 22.5-36.0 CBC W/PLT COUNT & AUTO [id number] 07:07:00* Test Item Value Reference Range Comments WHITE BLOOD CELL COUNT (BEAKER) (test zekd=401) 10.9 K/ L 3.5-10.5 RED BLOOD CELL COUNT (BEAKER) (test hhqg=382) 3.49 M/ L 3.93-5.22 HEMOGLOBIN (BEAKER) (test bvnb=209) 9.3 GM/DL 11.2-15.7 HEMATOCRIT (BEAKER) (test vyot=458) 32.8 % 34.1-44.9 MEAN CORPUSCULAR VOLUME (BEAKER) (test unuc=547) 94.0 fL 79.4-94.8 MEAN CORPUSCULAR HEMOGLOBIN (BEAKER) (test atcy=732) 26.6 pg 25.6-32.2 MEAN CORPUSCULAR HEMOGLOBIN CONC (BEAKER) (test wjts=750) 28.4 GM/DL 32.2-35.5 RED CELL DISTRIBUTION WIDTH (BEAKER) (test nbgg=386) 17.0 % 11.7-14.4 PLATELET COUNT (BEAKER) (test hzed=628) 132 K/CU MM 150-450 MEAN PLATELET VOLUME (BEAKER) (test idjt=385) 12.0 fL 9.4-12.3 NUCLEATED RED BLOOD CELLS (BEAKER) (test xwsb=467) 0 /100 WBC 0-0 NEUTROPHILS RELATIVE PERCENT (BEAKER) (test cxlx=790) 65 % LYMPHOCYTES RELATIVE PERCENT (BEAKER) (test sidy=891) 24 % MONOCYTES RELATIVE PERCENT (BEAKER) (test ghba=634) 7 % EOSINOPHILS RELATIVE PERCENT (BEAKER) (test ynuu=689) 3 % BASOPHILS RELATIVE PERCENT (BEAKER) (test czcr=914) 1 % NEUTROPHILS ABSOLUTE COUNT (BEAKER) (test ypen=047) 7.08 K/ L 1.56-6.13 LYMPHOCYTES ABSOLUTE COUNT (BEAKER) (test zrmi=037) 2.67 K/ L 1.18-3.74 MONOCYTES ABSOLUTE COUNT (BEAKER) (test tzvt=075) 0.76 K/ L 0.24-0.36 EOSINOPHILS ABSOLUTE COUNT (BEAKER) (test mfhz=863) 0.30 K/ L 0.04-0.36 BASOPHILS ABSOLUTE COUNT (BEAKER) (test frdz=208) 0.06 K/ L 0.01-0.08 IMMATURE GRANULOCYTES-RELATIVE PERCENT (BEAKER) (test dgjg=8760) 1 % 0-1 POCT-GLUCOSE [id number] 22:39:00* Test Item Value Reference Range Comments POC-GLUCOSE METER (BEAKER) (test jybc=8699) 102 mg/dL 70-110 : TESTED AT [facility] [address] [facility], [address]: Licensed Nursing Assistant/Director [employer] JD=[id number] for Ant Anderson C-REACTIVE [id number] 07:12:00* Test Item Value Reference Range Comments C-REACTIVE PROTEIN (BEAKER) (test nxee=657) 19.70 mg/dL 0.00-0.50 BASIC METABOLIC [id number] 07:11:00* Test Item Value Reference Range Comments SODIUM (BEAKER) (test hdyy=380) 140 meq/L 136-145 POTASSIUM (BEAKER) (test paye=075) 3.9 meq/L 3.5-5.1 CHLORIDE (BEAKER) (test upzh=829) 99 meq/L 98-107 CO2 (BEAKER) (test zmdt=134) 22 meq/L 22-29 BLOOD UREA NITROGEN (BEAKER) (test pdcw=559) 67 mg/dL 7-21 CREATININE (BEAKER) (test uwxs=722) 9.37 mg/dL 0.57-1.25 GLUCOSE RANDOM (BEAKER) (test aggw=662) 181 mg/dL 70-105 CALCIUM (BEAKER) (test ogxw=732) 9.6 mg/dL 8.4-10.2 EGFR (BEAKER) (test bmxl=7306) 4 mL/min/1.73 sq m ESTIMATED GFR IS NOT ACCURATE CREATININE CLEARANCE IN PREDICTING GLOMERULAR FILTRATION RATE. ESTIMATED GFR IS NOT APPLICABLE FOR DIALYSIS PATIENTS. [id number] 06:31:00* Test Item Value Reference Range Comments PARTIAL THROMBOPLASTIN TIME (BEAKER) (test jzty=764) 72.8 seconds 22.5-36.0 CBC W/PLT COUNT & AUTO [id number] 06:24:00* Test Item Value Reference Range Comments WHITE BLOOD CELL COUNT (BEAKER) (test nzsq=582) 10.9 K/ L 3.5-10.5 RED BLOOD CELL COUNT (BEAKER) (test uufr=128) 3.81 M/ L 3.93-5.22 HEMOGLOBIN (BEAKER) (test qway=673) 10.2 GM/DL 11.2-15.7 HEMATOCRIT (BEAKER) (test iivz=394) 35.6 % 34.1-44.9 MEAN CORPUSCULAR VOLUME (BEAKER) (test dhhf=551) 93.4 fL 79.4-94.8 MEAN CORPUSCULAR HEMOGLOBIN (BEAKER) (test chgo=651) 26.8 pg 25.6-32.2 MEAN CORPUSCULAR HEMOGLOBIN CONC (BEAKER) (test grul=436) 28.7 GM/DL 32.2-35.5 RED CELL DISTRIBUTION WIDTH (BEAKER) (test ykun=409) 17.3 % 11.7-14.4 PLATELET COUNT (BEAKER) (test nfcl=092) 148 K/CU MM 150-450 MEAN PLATELET VOLUME (BEAKER) (test kmdd=832) 12.1 fL 9.4-12.3 NUCLEATED RED BLOOD CELLS (BEAKER) (test lsol=895) 0 /100 WBC 0-0 NEUTROPHILS RELATIVE PERCENT (BEAKER) (test ohld=972) 68 % LYMPHOCYTES RELATIVE PERCENT (BEAKER) (test wawn=978) 20 % MONOCYTES RELATIVE PERCENT (BEAKER) (test tsvy=425) 7 % EOSINOPHILS RELATIVE PERCENT (BEAKER) (test jcix=917) 3 % BASOPHILS RELATIVE PERCENT (BEAKER) (test fwnn=589) 1 % NEUTROPHILS ABSOLUTE COUNT (BEAKER) (test sxlo=331) 7.41 K/ L 1.56-6.13 LYMPHOCYTES ABSOLUTE COUNT (BEAKER) (test atwd=795) 2.20 K/ L 1.18-3.74 MONOCYTES ABSOLUTE COUNT (BEAKER) (test uabh=171) 0.75 K/ L 0.24-0.36 EOSINOPHILS ABSOLUTE COUNT (BEAKER) (test frnx=092) 0.37 K/ L 0.04-0.36 BASOPHILS ABSOLUTE COUNT (BEAKER) (test yqwk=340) 0.09 K/ L 0.01-0.08 IMMATURE GRANULOCYTES-RELATIVE PERCENT (BEAKER) (test lqpj=2284) 1 % 0-1 [id number] 21:32:00* Test Item Value Reference Range Comments PARTIAL THROMBOPLASTIN TIME (BEAKER) (test bpqo=139) 70.9 seconds 22.5-36.0 POCT-GLUCOSE [id number] 21:31:00* Test Item Value Reference Range Comments POC-GLUCOSE METER (BEAKER) (test szip=6430) 182 mg/dL 70-110 : TESTED AT [facility] [address] [facility] [place], [address]: Licensed Nursing Assistant/Director [employer] TY=[phone] for STEFANY DEMPSEY [id number] 16:05:00* Test Item Value Reference Range Comments PARTIAL THROMBOPLASTIN TIME (BEAKER) (test jwxi=716) 67.7 seconds 22.5-36.0 HEMOGLOBIN [id number] 12:56:00* Test Item Value Reference Range Comments HEMOGLOBIN A1C (BEAKER) (test hunb=128) 6.9 % 4.3-6.1 CARDIOLIPIN ANTIBODIES, IGG AND [id number] 11:36:00* Test Item Value Reference Range Comments ANTICARDIOLIPIN IGG ANTIBODY (BEAKER) (test niid=547) < GPL <20.0 ANTICARDIOLIPIN IGM ANTIBODY (BEAKER) (test chnv=067) 0.5 MPL <20.0 Anticardiolipin IgG Result Interpretation: <20.0 GPL Normal>/=20.0 GPL PositiveAnticardiolipin IgM Result Interpretation: <20.0 MPL Normal>/=20.0 MPL PositiveCOMPREHENSIVE METABOLIC [id number] 07:22:00* Test Item Value Reference Range Comments TOTAL PROTEIN (BEAKER) (test lzhe=555) 6.9 gm/dL 6.0-8.3 ALBUMIN (BEAKER) (test xjlt=8880) 2.6 g/dL 3.5-5.0 ALKALINE PHOSPHATASE (BEAKER) (test uljo=254) 136 U/L 40-150 BILIRUBIN TOTAL (BEAKER) (test poom=540) 0.3 mg/dL 0.2-1.2 SODIUM (BEAKER) (test ixvu=477) 139 meq/L 136-145 POTASSIUM (BEAKER) (test onff=458) 4.0 meq/L 3.5-5.1 CHLORIDE (BEAKER) (test dfrc=451) 100 meq/L 98-107 CO2 (BEAKER) (test hsyz=529) 21 meq/L 22-29 BLOOD UREA NITROGEN (BEAKER) (test ckur=812) 67 mg/dL 7-21 CREATININE (BEAKER) (test putj=092) 8.98 mg/dL 0.57-1.25 GLUCOSE RANDOM (BEAKER) (test tbjp=949) 118 mg/dL 70-105 CALCIUM (BEAKER) (test weqk=389) 9.1 mg/dL 8.4-10.2 AST (SGOT) (BEAKER) (test ftjs=271) 17 U/L 5-34 ALT (SGPT) (BEAKER) (test spoy=095) 10 U/L 6-55 EGFR (BEAKER) (test penn=8418) 4 mL/min/1.73 sq m ESTIMATED GFR IS NOT ACCURATE CREATININE CLEARANCE IN PREDICTING GLOMERULAR FILTRATION RATE. ESTIMATED GFR IS NOT APPLICABLE FOR DIALYSIS PATIENTS. [id number] 07:08:00* Test Item Value Reference Range Comments PROCALCITONIN (BEAKER) (test fzzw=0108) 0.57 ng/mL <0.05 SEPSIS RISK (ng/mL)Low: 0.05-0.50Intermediate: 0.51-2.00High: > =2.01CBC W/PLT COUNT & AUTO [id number] 07:00:00* Test Item Value Reference Range Comments WHITE BLOOD CELL COUNT (BEAKER) (test szuy=905) 10.6 K/ L 3.5-10.5 RED BLOOD CELL COUNT (BEAKER) (test uifx=701) 3.86 M/ L 3.93-5.22 HEMOGLOBIN (BEAKER) (test fdgu=640) 10.5 GM/DL 11.2-15.7 HEMATOCRIT (BEAKER) (test ezsv=838) 36.4 % 34.1-44.9 MEAN CORPUSCULAR VOLUME (BEAKER) (test ocoz=012) 94.3 fL 79.4-94.8 MEAN CORPUSCULAR HEMOGLOBIN (BEAKER) (test jesc=548) 27.2 pg 25.6-32.2 MEAN CORPUSCULAR HEMOGLOBIN CONC (BEAKER) (test bzjb=868) 28.8 GM/DL 32.2-35.5 RED CELL DISTRIBUTION WIDTH (BEAKER) (test hswv=808) 17.1 % 11.7-14.4 PLATELET COUNT (BEAKER) (test rksg=081) 151 K/CU MM 150-450 MEAN PLATELET VOLUME (BEAKER) (test lhkk=809) 11.7 fL 9.4-12.3 NUCLEATED RED BLOOD CELLS (BEAKER) (test ncbm=811) 0 /100 WBC 0-0 NEUTROPHILS RELATIVE PERCENT (BEAKER) (test iuet=627) 66 % LYMPHOCYTES RELATIVE PERCENT (BEAKER) (test bxvs=894) 22 % MONOCYTES RELATIVE PERCENT (BEAKER) (test vxfr=745) 8 % EOSINOPHILS RELATIVE PERCENT (BEAKER) (test ulho=471) 3 % BASOPHILS RELATIVE PERCENT (BEAKER) (test lwah=419) 1 % NEUTROPHILS ABSOLUTE COUNT (BEAKER) (test hulo=318) 6.97 K/ L 1.56-6.13 LYMPHOCYTES ABSOLUTE COUNT (BEAKER) (test hwjh=715) 2.32 K/ L 1.18-3.74 MONOCYTES ABSOLUTE COUNT (BEAKER) (test tsss=838) 0.81 K/ L 0.24-0.36 EOSINOPHILS ABSOLUTE COUNT (BEAKER) (test wpmv=821) 0.35 K/ L 0.04-0.36 BASOPHILS ABSOLUTE COUNT (BEAKER) (test wizq=399) 0.05 K/ L 0.01-0.08 IMMATURE GRANULOCYTES-RELATIVE PERCENT (BEAKER) (test zwly=4071) 1 % 0-1 [id number] 06:48:00* Test Item Value Reference Range Comments PARTIAL THROMBOPLASTIN TIME (BEAKER) (test dzrr=706) 60.7 seconds 22.5-36.0 PROTHROMBIN TIME/[id number] 06:47:00* Test Item Value Reference Range Comments PROTIME (BEAKER) (test bsnj=556) 15.1 seconds 11.9-14.2 INR (BEAKER) (test earr=832) 1.2 <=5.9 Effective 09/30/2018: PT Reference Range ChangeNew: 11.9-14.2 Previous: 11.7-14. 7RECOMMENDED COUMADIN/WARFARIN INR THERAPY RANGESSTANDARD DOSE: 2.0-3.0 Include s: PROPHYLAXIS for venous thrombosis, systemic embolization; TREATMENT for venou s thrombosis and/or pulmonary embolus.HIGH RISK: Target INR is 2.5-3.5 for patie nts wiht mechanical heart valves.[id number] 01:18:00* Test Item Value Reference Range Comments PARTIAL THROMBOPLASTIN TIME (BEAKER) (test bywv=562) 65.0 seconds 22.5-36.0 BODY FLUID CELL COUNT WITH [id number] 22:17:00* Test Item Value Reference Range Comments APPEARANCE FLUID (BEAKER) (test tboc=353) Clear Clear COLOR FLUID (BEAKER) (test ltgg=891) Colorless Colorless, Straw RBC FLUID (BEAKER) (test uqso=152) 22 /cu mm <=1 ADJUSTED WBC FLUID (BEAKER) (test nvpw=2794) 24 /cu mm <=5 LINING CELLS (BEAKER) (test zpjb=2673) 0 /cu mm <=1 NEUTROPHILS FLUID (BEAKER) (test ditn=7966) 4 % LYMPHS FLUID (BEAKER) (test xagy=282) 20 % MONO/MACROPHAGE FLUID (BEAKER) (test gmcg=513) 76 % EOSINOPHILS FLUID (BEAKER) (test veii=432) 0 % BASO FLUID (BEAKER) (test riwl=148) 0 % CONTAINER BODY FLUID (BEAKER) (test nvtz=7146) EDTA Tube [id number] 16:46:00* Test Item Value Reference Range Comments PHOSPHORUS (BEAKER) (test tjxy=457) 5.2 mg/dL 2.3-4.7 Call lab to add to blood sent this AM. Downtime please. Call me if result is abn ormal. Do not stick patient again now just for this. If unable to do downtime, then add this to labs in AM tomorrow. Bijan Adhikari MD [phone]. Th ank you.B-TYPE NATRIURETIC FACTOR (BNP)2019-04-12 14:43:00* Test Item Value Reference Range Comments B-TYPE NATRIURETIC PEPTIDE (BEAKER) (test hlgr=721) 1901 pg/mL 0-100 BASIC METABOLIC [id number] 14:41:00* Test Item Value Reference Range Comments SODIUM (BEAKER) (test dkkc=291) 139 meq/L 136-145 POTASSIUM (BEAKER) (test cull=012) 4.2 meq/L 3.5-5.1 CHLORIDE (BEAKER) (test iqat=522) 100 meq/L 98-107 CO2 (BEAKER) (test mlhj=606) 22 meq/L 22-29 BLOOD UREA NITROGEN (BEAKER) (test lkil=927) 74 mg/dL 7-21 CREATININE (BEAKER) (test sewd=030) 9.18 mg/dL 0.57-1.25 GLUCOSE RANDOM (BEAKER) (test wzxe=022) 206 mg/dL 70-105 CALCIUM (BEAKER) (test ifln=761) 9.3 mg/dL 8.4-10.2 EGFR (BEAKER) (test maqf=4783) 4 mL/min/1.73 sq m ESTIMATED GFR IS NOT ACCURATE CREATININE CLEARANCE IN PREDICTING GLOMERULAR FILTRATION RATE. ESTIMATED GFR IS NOT APPLICABLE FOR DIALYSIS PATIENTS. [id number] 14:37:00* Test Item Value Reference Range Comments MAGNESIUM (BEAKER) (test tzxr=793) 2.5 mg/dL 1.6-2.6 HEPATIC FUNCTION [id number] 14:37:00* Test Item Value Reference Range Comments TOTAL PROTEIN (BEAKER) (test hwby=926) 7.1 gm/dL 6.0-8.3 ALBUMIN (BEAKER) (test epna=9079) 2.7 g/dL 3.5-5.0 BILIRUBIN TOTAL (BEAKER) (test svnk=087) 0.2 mg/dL 0.2-1.2 BILIRUBIN DIRECT (BEAKER) (test xbew=982) 0.2 mg/dL 0.1-0.5 ALKALINE PHOSPHATASE (BEAKER) (test ceiq=976) 158 U/L 40-150 AST (SGOT) (BEAKER) (test jxti=662) 20 U/L 5-34 ALT (SGPT) (BEAKER) (test npop=119) 13 U/L 6-55 PT/[id number] 14:35:00* Test Item Value Reference Range Comments PROTIME (BEAKER) (test owgy=503) 14.4 seconds 11.9-14.2 INR (BEAKER) (test xgcy=734) 1.2 <=5.9 PARTIAL THROMBOPLASTIN TIME (BEAKER) (test lxxs=166) 30.9 seconds 22.5-36.0 Effective 09/30/2018: PT Reference Range ChangeNew: 11.9-14.2 Previous: 11.7-14. 7RECOMMENDED COUMADIN/WARFARIN INR THERAPY RANGESSTANDARD DOSE: 2.0-3.0 Include s: PROPHYLAXIS for venous thrombosis, systemic embolization; TREATMENT for venou s thrombosis and/or pulmonary embolus.HIGH RISK: Target INR is 2.5-3.5 for patie nts wiht mechanical heart valves.CBC W/PLT COUNT & AUTO [id number] 14:22:00* Test Item Value Reference Range Comments WHITE BLOOD CELL COUNT (BEAKER) (test mtna=625) 11.6 K/ L 3.5-10.5 RED BLOOD CELL COUNT (BEAKER) (test dhjm=856) 4.08 M/ L 3.93-5.22 HEMOGLOBIN (BEAKER) (test xmgf=797) 11.0 GM/DL 11.2-15.7 HEMATOCRIT (BEAKER) (test qsbh=938) 37.1 % 34.1-44.9 MEAN CORPUSCULAR VOLUME (BEAKER) (test pknh=825) 90.9 fL 79.4-94.8 MEAN CORPUSCULAR HEMOGLOBIN (BEAKER) (test xcnr=919) 27.0 pg 25.6-32.2 MEAN CORPUSCULAR HEMOGLOBIN CONC (BEAKER) (test ttwi=213) 29.6 GM/DL 32.2-35.5 RED CELL DISTRIBUTION WIDTH (BEAKER) (test axel=288) 17.0 % 11.7-14.4 PLATELET COUNT (BEAKER) (test cnpj=295) 150 K/CU MM 150-450 MEAN PLATELET VOLUME (BEAKER) (test yoji=728) 11.3 fL 9.4-12.3 NUCLEATED RED BLOOD CELLS (BEAKER) (test ykcy=462) 0 /100 WBC 0-0 NEUTROPHILS RELATIVE PERCENT (BEAKER) (test drys=698) 71 % LYMPHOCYTES RELATIVE PERCENT (BEAKER) (test duva=735) 19 % MONOCYTES RELATIVE PERCENT (BEAKER) (test ecis=026) 6 % EOSINOPHILS RELATIVE PERCENT (BEAKER) (test pqgy=054) 3 % BASOPHILS RELATIVE PERCENT (BEAKER) (test wwya=128) 0 % NEUTROPHILS ABSOLUTE COUNT (BEAKER) (test adsl=084) 8.20 K/ L 1.56-6.13 LYMPHOCYTES ABSOLUTE COUNT (BEAKER) (test ppko=759) 2.25 K/ L 1.18-3.74 MONOCYTES ABSOLUTE COUNT (BEAKER) (test hzqt=456) 0.70 K/ L 0.24-0.36 EOSINOPHILS ABSOLUTE COUNT (BEAKER) (test dzpy=966) 0.33 K/ L 0.04-0.36 BASOPHILS ABSOLUTE COUNT (BEAKER) (test ugep=636) 0.05 K/ L 0.01-0.08 IMMATURE GRANULOCYTES-RELATIVE PERCENT (BEAKER) (test yrrz=6895) 0 % 0-1 BLOOD [id number] 08:00:00* Test Item Value Reference Range Comments CULTURE (BEAKER) (test ivpy=8930) No growth in 5 days BLOOD [id number] 08:00:00* Test Item Value Reference Range Comments CULTURE (BEAKER) (test ockh=5757) No growth in 5 days NEEDLE EMG, 2 [id number] 14:55:00Reason for exam:->neuropathyShould this be performed at the bedside?[facility] [address] [place] [address] Name: Kelsie Layne Date of : 1945 Gender: Female Date of Exam: 01/06/2019 5:10 PM Referring Physician: David Nath M.D. Examining Physician: Suresh Saleh D.O. Patient History: The patient is a 73 year old woman who presents for evaluation with concern for neuropathy. Neurological examination was not completed as the patient was discharged prior to completion of study. Motor Nerve Conduction: Nerve and Site Latency Amplitude Segment Latency Difference Distance Conduction Velocity Median.L Wrist 6.0 ms 2.1 mV Abductor pollicis brevis-Wrist 6.0 ms 70 mm Elbow 11.3 ms 1.7 mV Wrist-Elbow 5.3 ms 215 mm 41 m/s Ulnar.L Wrist 3.5 ms 5.0 mV Abductor digiti minimi (manus)-Wrist 3.5 ms 80 mm Below elbow 7.7 ms 3.3 mV Wrist-Below elbow 4.2 ms 180 mm 43 m/s Above elbow 10.0 ms 3.2 mV Below elbow-Above elbow 2.3 ms 100 mm 43 m/s Peroneal (EDB).L Ankle NR ms NR mV Extensor digitorum brevis- Ankle 80 mm Peroneal (TA).L Fibula (head) 4.6 ms 1.8 mV TA-Fibula (head) 4.6 ms Knee 7.0 ms 1.8 mV Fibula (head)-Knee 2.4 ms 100 mm 42 m/s Tibial.L Ankle NR ms NR mV Abductor hallucis-Ankle 80 mm Popliteal fossa NR ms NR mV Ankle-Popliteal fossa 330 mm Sensory Nerve Conduction: Nerve and Site Onset Latency Peak Latency Amplitude Segment Latency Difference Distance Conduction Velocity Median.L Wrist NR ms NR ms NR & #[id number];V Digit II (index finger)-Wrist 130 mm Ulnar.L Wrist NR ms NR ms NR 꽀V Digit V (little finger)- Wrist 110 mm Radial.L Forearm 2.4 ms 2.8 ms 3 𗁚V Anatomical snuff box-Forearm 2.4 ms 100 mm 35 m/s Sural.L Lower leg NR ms NR ms NR ỦV Ankle- Lower leg 140 mm Summary of Findings: Motor and sensory nerve conduction studies are abnormal for (1) prolonged distal motor onset latency, reduced CMAP amplitude, and mildly slowed conduction velocity in the left median motor study, (2) no response in the left peroneal motor study when recording at the EDB muscle, (3) mildly reduced CMAP amplitude in the left peroneal motor study when recording at the TA muscle, (4) no response in the left tibial motor study, (5) no response in the left median sensory study, (6) no response in the left ulnar sensory study, (7) reduced SNAP amplitude and slowed conduction velocity in the left radial sensory study, and (8) no response in the left sural sensory study. Needle electromyography (EMG) was not performed as the patient was discharged prior to completion of the study. Impression: This is an abnormal study. 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 (2) A left median neuropathy at the wrist consistent with carpal tunnel syndrome. Comment: Evaluation was limited to nerve conducti on studies (without needle EMG) as the patient was discharged prior to completio n of the study. The patient's left carpal tunnel syndrome is at least moderate in severity, but cannot be more precisely graded (including acuity) without need le EMG. Superimposed focal neurogenic processes affecting the upper and lower e xtremities (such as radiculopathy) cannot be ruled out. Suresh Saleh D.O. -GLUCOSE [id number] 12:40:00 * Test Item Value Reference Range Comments POC-GLUCOSE METER (BEAKER) (test geay=8654) 179 mg/dL 70-110 TESTED AT [address] [address] POCT-GLUCOSE [id number] 08:22:00* Test Item Value Reference Range Comments POC-GLUCOSE METER (BEAKER) (test oiia=4591) 223 mg/dL 70-110 TESTED AT [address] [address] VANCOMYCIN LEVEL, [id number] 03:08:00* Test Item Value Reference Range Comments VANCOMYCIN RANDOM (BEAKER) (test lizy=935) 19.4 ug/mL Reference Range: No NormalsPOCT-GLUCOSE [id number] 21:50:00* Test Item Value Reference Range Comments POC-GLUCOSE METER (BEAKER) (test phmc=2793) 165 mg/dL 70-110 TESTED AT [address] [address] POCT-GLUCOSE [id number] 17:39:00* Test Item Value Reference Range Comments POC-GLUCOSE METER (BEAKER) (test gjod=3959) 130 mg/dL 70-110 TESTED AT [address] [address] PERITONEAL DIALYSIS EFFLUENT [id number] 12:18:00* Test Item Value Reference Range Comments CULTURE (BEAKER) (test gczk=2884) No growth GRAM STAIN RESULT (BEAKER) (test nnop=9611) 1+ WBCs GRAM STAIN RESULT (BEAKER) (test lonc=67331) No organisms seen POCT-GLUCOSE [id number] 12:06:00* Test Item Value Reference Range Comments POC-GLUCOSE METER (BEAKER) (test uhud=0398) 201 mg/dL 70-110 TESTED AT [address] [address] POCT-GLUCOSE [id number] 08:42:00* Test Item Value Reference Range Comments POC-GLUCOSE METER (BEAKER) (test oerl=3230) 192 mg/dL 70-110 TESTED AT [facility] [address] [facility] [address] BASIC METABOLIC [id number] 05:22:00* Test Item Value Reference Range Comments SODIUM (BEAKER) (test oeve=320) 135 meq/L 136-145 POTASSIUM (BEAKER) (test wowf=775) 3.6 meq/L 3.5-5.1 CHLORIDE (BEAKER) (test weoi=082) 98 meq/L 98-107 CO2 (BEAKER) (test hisa=092) 20 meq/L 22-29 BLOOD UREA NITROGEN (BEAKER) (test tzot=900) 41 mg/dL 7-21 CREATININE (BEAKER) (test cosk=403) 7.96 mg/dL 0.57-1.25 GLUCOSE RANDOM (BEAKER) (test zibi=979) 190 mg/dL 70-105 CALCIUM (BEAKER) (test uakv=690) 7.7 mg/dL 8.4-10.2 EGFR (BEAKER) (test aplr=2878) 5 mL/min/1.73 sq m ESTIMATED GFR IS NOT ACCURATE CREATININE CLEARANCE IN PREDICTING GLOMERULAR FILTRATION RATE. ESTIMATED GFR IS NOT APPLICABLE FOR DIALYSIS PATIENTS. VANCOMYCIN LEVEL, [id number] 04:57:00* Test Item Value Reference Range Comments VANCOMYCIN RANDOM (BEAKER) (test ylef=882) 11.9 ug/mL Reference Range: No NormalsCBC W/PLT COUNT & AUTO [id number] 04:51:00* Test Item Value Reference Range Comments WHITE BLOOD CELL COUNT (BEAKER) (test pbpn=919) 13.6 K/ L 3.5-10.5 RED BLOOD CELL COUNT (BEAKER) (test efgl=444) 2.73 M/ L 3.93-5.22 HEMOGLOBIN (BEAKER) (test riti=383) 8.3 GM/DL 11.2-15.7 HEMATOCRIT (BEAKER) (test hyxw=805) 28.3 % 34.1-44.9 MEAN CORPUSCULAR VOLUME (BEAKER) (test csmj=554) 103.7 fL 79.4-94.8 MEAN CORPUSCULAR HEMOGLOBIN (BEAKER) (test zjec=565) 30.4 pg 25.6-32.2 MEAN CORPUSCULAR HEMOGLOBIN CONC (BEAKER) (test jvmz=709) 29.3 GM/DL 32.2-35.5 RED CELL DISTRIBUTION WIDTH (BEAKER) (test ouvs=873) 15.7 % 11.7-14.4 PLATELET COUNT (BEAKER) (test lsye=027) 148 K/CU MM 150-450 MEAN PLATELET VOLUME (BEAKER) (test yzlu=980) 11.4 fL 9.4-12.3 NUCLEATED RED BLOOD CELLS (BEAKER) (test sbyi=478) 0 /100 WBC 0-0 NEUTROPHILS RELATIVE PERCENT (BEAKER) (test byrb=653) 69 % LYMPHOCYTES RELATIVE PERCENT (BEAKER) (test bdnw=078) 12 % MONOCYTES RELATIVE PERCENT (BEAKER) (test undz=901) 4 % EOSINOPHILS RELATIVE PERCENT (BEAKER) (test idhk=472) 14 % BASOPHILS RELATIVE PERCENT (BEAKER) (test cddl=994) 1 % NEUTROPHILS ABSOLUTE COUNT (BEAKER) (test okau=875) 9.33 K/ L 1.56-6.13 LYMPHOCYTES ABSOLUTE COUNT (BEAKER) (test jzdx=771) 1.65 K/ L 1.18-3.74 MONOCYTES ABSOLUTE COUNT (BEAKER) (test fnmm=308) 0.59 K/ L 0.24-0.36 EOSINOPHILS ABSOLUTE COUNT (BEAKER) (test nobo=433) 1.91 K/ L 0.04-0.36 BASOPHILS ABSOLUTE COUNT (BEAKER) (test rywa=972) 0.07 K/ L 0.01-0.08 IMMATURE GRANULOCYTES-RELATIVE PERCENT (BEAKER) (test abfm=9564) 0 % 0-1 POCT-GLUCOSE [id number] 20:51:00* Test Item Value Reference Range Comments POC-GLUCOSE METER (BEAKER) (test kifr=7426) 128 mg/dL 70-110 TESTED AT [facility] [address] [facility] [address] POCT-GLUCOSE [id number] 18:44:00* Test Item Value Reference Range Comments POC-GLUCOSE METER (BEAKER) (test nkhl=8360) 134 mg/dL 70-110 TESTED AT [facility] [address] [facility] [address] POCT-GLUCOSE [id number] 12:00:00* Test Item Value Reference Range Comments POC-GLUCOSE METER (BEAKER) (test gxbq=7434) 130 mg/dL 70-110 TESTED AT [facility] [address] [facility] [place] [address] CBC W/PLT COUNT & AUTO [id number] 08:43:00* Test Item Value Reference Range Comments WHITE BLOOD CELL COUNT (BEAKER) (test uyuc=417) 15.0 K/ L 3.5-10.5 RED BLOOD CELL COUNT (BEAKER) (test dexv=168) 2.97 M/ L 3.93-5.22 HEMOGLOBIN (BEAKER) (test enjw=103) 9.2 GM/DL 11.2-15.7 HEMATOCRIT (BEAKER) (test ztfo=194) 30.3 % 34.1-44.9 MEAN CORPUSCULAR VOLUME (BEAKER) (test vvso=206) 102.0 fL 79.4-94.8 MEAN CORPUSCULAR HEMOGLOBIN (BEAKER) (test ubvu=203) 31.0 pg 25.6-32.2 MEAN CORPUSCULAR HEMOGLOBIN CONC (BEAKER) (test awue=932) 30.4 GM/DL 32.2-35.5 RED CELL DISTRIBUTION WIDTH (BEAKER) (test okko=597) 15.5 % 11.7-14.4 PLATELET COUNT (BEAKER) (test zyzw=022) 142 K/CU MM 150-450 MEAN PLATELET VOLUME (BEAKER) (test byjf=341) 11.1 fL 9.4-12.3 NUCLEATED RED BLOOD CELLS (BEAKER) (test tpmx=619) 0 /100 WBC 0-0 (CELLAVISION MANUAL DIFF)2019-01-04 08:43:00* Test Item Value Reference Range Comments NEUTROPHILS - REL (CELLAVISION)(BEAKER) (test gfzp=8105) 66 % LYMPHOCYTES - REL (CELLAVISION)(BEAKER) (test whpk=5940) 12 % MONOCYTES - REL (CELLAVISION)(BEAKER) (test qecc=9940) 6 % EOSINOPHILS - REL (CELLAVISION)(BEAKER) (test bqgh=9517) 13 % BANDS - REL (CELLAVISION)(BEAKER) (test xibs=9652) 3 % 0-10 NEUTROPHILS - ABS (CELLAVISION)(BEAKER) (test fonr=0722) 9.90 K/ul 1.56-6.13 LYMPHOCYTES - ABS (CELLAVISION)(BEAKER) (test ctoo=3887) 1.80 K/ul 1.18-3.74 MONOCYTES - ABS (CELLAVISION)(BEAKER) (test qmaz=6625) 0.90 K/uL 0.24-0.36 EOSINOPHILS - ABS (CELLAVISION)(BEAKER) (test qkig=3569) 1.95 K/uL 0.04-0.36 BANDS - ABS (CELLAVISION)(BEAKER) (test zchx=0615) 0.45 K/uL 0.00-0.80 TOTAL COUNTED (BEAKER) (test fsnc=6518) 100 WBC MORPHOLOGY (BEAKER) (test cloj=692) Normal PLT MORPHOLOGY (BEAKER) (test cocz=118) Normal ANISOCYTOSIS (BEAKER) (test dmzl=045) 1+ few ARTIFACT (CELLAVISION)(BEAKER) (test yzme=8041) Present PLATELET CONCENTRATION (CELLAVISION)(BEAKER) (test hwpm=6836) Decreased Received comment: User comments: Slide comments: POCT-GLUCOSE [id number] 08:31:00* Test Item Value Reference Range Comments POC-GLUCOSE METER (BEAKER) (test bcvd=8838) 177 mg/dL 70-110 TESTED AT [address] [address] BASIC METABOLIC [id number] 05:59:00* Test Item Value Reference Range Comments SODIUM (BEAKER) (test pecm=265) 136 meq/L 136-145 POTASSIUM (BEAKER) (test ibwc=325) 4.0 meq/L 3.5-5.1 CHLORIDE (BEAKER) (test ntfz=187) 97 meq/L 98-107 CO2 (BEAKER) (test fukz=368) 24 meq/L 22-29 BLOOD UREA NITROGEN (BEAKER) (test wgbm=574) 40 mg/dL 7-21 CREATININE (BEAKER) (test ypli=713) 7.65 mg/dL 0.57-1.25 GLUCOSE RANDOM (BEAKER) (test glri=390) 190 mg/dL 70-105 CALCIUM (BEAKER) (test zlmf=612) 8.1 mg/dL 8.4-10.2 EGFR (BEAKER) (test lpiu=8117) 5 mL/min/1.73 sq m ESTIMATED GFR IS NOT ACCURATE CREATININE CLEARANCE IN PREDICTING GLOMERULAR FILTRATION RATE. ESTIMATED GFR IS NOT APPLICABLE FOR DIALYSIS PATIENTS. POCT-GLUCOSE [id number] 22:46:00* Test Item Value Reference Range Comments POC-GLUCOSE METER (BEAKER) (test qalr=3298) 227 mg/dL 70-110 TESTED AT [address] [address] POCT-GLUCOSE [id number] 17:20:00* Test Item Value Reference Range Comments POC-GLUCOSE METER (BEAKER) (test xvyg=1695) 194 mg/dL 70-110 TESTED AT [address] [address] RAD, CHEST, 1 VIEW, NON [id number] 12:28:00Reason for exam:->AMS, congestionShould this be performed at the bedside?->YesFINAL REPORT Chest dated 01/03/2019 COMPARISON: November 16, 2018 Clinical Information: AMS, congestion Comment: Heart is enlarged. Pulmonary vasculature is indistinct. Interstitial disease is seen bilaterally suggestive of vascular congestion or pulmonary edema unchanged from prior study. No pleural effusion or pneumothorax is seen. Signed: Oscar Munoz MDReport Verified Date/Time: 01/03/2019 12:28:23 Reading Location: [place] [address] CT Body Reading Room IC ACID, [id number] 12:20:00* Test Item Value Reference Range Comments LACTATE BLOOD VENOUS (2) (BEAKER) (test otha=6072) 1.2 mmol/L 0.5-2.2 POCT-GLUCOSE [id number] 11:38:00* Test Item Value Reference Range Comments POC-GLUCOSE METER (BEAKER) (test qwqu=0837) 150 mg/dL 70-110 TESTED AT [place] [id number] [facility] [address] POCT-GLUCOSE [id number] 08:11:00* Test Item Value Reference Range Comments POC-GLUCOSE METER (BEAKER) (test pvro=9268) 159 mg/dL 70-110 TESTED AT [address] [address] VITAMIN B12 AND [id number] 06:55:00* Test Item Value Reference Range Comments VITAMIN B12 (BEAKER) (test kphm=300) 1305 pg/mL 213-816 FOLATE (BEAKER) (test qlav=290) > ng/mL >=7.0 T4, [id number] 06:52:00* Test Item Value Reference Range Comments FREE T4 (BEAKER) (test ebmd=031) 0.68 ng/dL 0.70-1.48 TSH/FREE T4 IF [id number] 02:22:00* Test Item Value Reference Range Comments THYROID STIMULATING HORMONE (BEAKER) (test mbkm=836) 8.22 uIU/mL 0.35-4.94 BASIC METABOLIC [id number] 01:38:00* Test Item Value Reference Range Comments SODIUM (BEAKER) (test yedu=166) 135 meq/L 136-145 POTASSIUM (BEAKER) (test omss=321) 4.3 meq/L 3.5-5.1 CHLORIDE (BEAKER) (test fjzt=229) 97 meq/L 98-107 CO2 (BEAKER) (test xhfx=636) 23 meq/L 22-29 BLOOD UREA NITROGEN (BEAKER) (test gvxi=531) 41 mg/dL 7-21 CREATININE (BEAKER) (test pqac=720) 7.93 mg/dL 0.57-1.25 GLUCOSE RANDOM (BEAKER) (test ioae=642) 130 mg/dL 70-105 CALCIUM (BEAKER) (test tlhu=960) 7.9 mg/dL 8.4-10.2 EGFR (BEAKER) (test hztw=1068) 5 mL/min/1.73 sq m ESTIMATED GFR IS NOT ACCURATE CREATININE CLEARANCE IN PREDICTING GLOMERULAR FILTRATION RATE. ESTIMATED GFR IS NOT APPLICABLE FOR DIALYSIS PATIENTS. [id number] 01:37:00* Test Item Value Reference Range Comments PHOSPHORUS (BEAKER) (test fhjx=878) 6.9 mg/dL 2.3-4.7 [id number] 01:37:00* Test Item Value Reference Range Comments MAGNESIUM (BEAKER) (test lnbn=466) 2.2 mg/dL 1.6-2.6 CBC W/PLT COUNT & AUTO [id number] 01:20:00* Test Item Value Reference Range Comments WHITE BLOOD CELL COUNT (BEAKER) (test oxfp=673) 15.6 K/ L 3.5-10.5 RED BLOOD CELL COUNT (BEAKER) (test dxir=709) 2.81 M/ L 3.93-5.22 HEMOGLOBIN (BEAKER) (test sisn=085) 8.7 GM/DL 11.2-15.7 HEMATOCRIT (BEAKER) (test wzbx=396) 29.0 % 34.1-44.9 MEAN CORPUSCULAR VOLUME (BEAKER) (test crfc=325) 103.2 fL 79.4-94.8 MEAN CORPUSCULAR HEMOGLOBIN (BEAKER) (test afhh=816) 31.0 pg 25.6-32.2 MEAN CORPUSCULAR HEMOGLOBIN CONC (BEAKER) (test unuw=528) 30.0 GM/DL 32.2-35.5 RED CELL DISTRIBUTION WIDTH (BEAKER) (test sevm=288) 15.3 % 11.7-14.4 PLATELET COUNT (BEAKER) (test avmb=660) 130 K/CU MM 150-450 MEAN PLATELET VOLUME (BEAKER) (test pcyn=095) 10.8 fL 9.4-12.3 NUCLEATED RED BLOOD CELLS (BEAKER) (test kswx=315) 0 /100 WBC 0-0 NEUTROPHILS RELATIVE PERCENT (BEAKER) (test jdsc=266) 66 % LYMPHOCYTES RELATIVE PERCENT (BEAKER) (test nqix=060) 15 % MONOCYTES RELATIVE PERCENT (BEAKER) (test eunp=736) 5 % EOSINOPHILS RELATIVE PERCENT (BEAKER) (test reyg=259) 12 % BASOPHILS RELATIVE PERCENT (BEAKER) (test fqzj=105) 0 % NEUTROPHILS ABSOLUTE COUNT (BEAKER) (test ixmi=138) 10.34 K/ L 1.56-6.13 LYMPHOCYTES ABSOLUTE COUNT (BEAKER) (test aapt=073) 2.40 K/ L 1.18-3.74 MONOCYTES ABSOLUTE COUNT (BEAKER) (test ysrj=993) 0.81 K/ L 0.24-0.36 EOSINOPHILS ABSOLUTE COUNT (BEAKER) (test zzcm=824) 1.88 K/ L 0.04-0.36 BASOPHILS ABSOLUTE COUNT (BEAKER) (test gvuw=718) 0.07 K/ L 0.01-0.08 IMMATURE GRANULOCYTES-RELATIVE PERCENT (BEAKER) (test iepz=3444) 1 % 0-1 POCT-GLUCOSE [id number] 22:07:00* Test Item Value Reference Range Comments POC-GLUCOSE METER (BEAKER) (test zttp=3205) 123 mg/dL 70-110 TESTED AT [address] [address] POCT-GLUCOSE [id number] 20:50:00* Test Item Value Reference Range Comments POC-GLUCOSE METER (BEAKER) (test ildr=1451) 111 mg/dL 70-110 TESTED AT [address] [address] BODY FLUID CELL COUNT WITH [id number] 20:34:00* Test Item Value Reference Range Comments APPEARANCE FLUID (BEAKER) (test mbqd=418) Slightly Hazy Clear COLOR FLUID (BEAKER) (test yqwn=580) Straw Colorless, Straw RBC FLUID (BEAKER) (test lfzi=267) 40 /cu mm <=1 ADJUSTED WBC FLUID (BEAKER) (test zuod=1159) 363 /cu mm <=5 LINING CELLS (BEAKER) (test tazj=4349) 7 /cu mm <=1 NEUTROPHILS FLUID (BEAKER) (test sfln=2637) 27 % LYMPHS FLUID (BEAKER) (test frse=250) 6 % MONO/MACROPHAGE FLUID (BEAKER) (test oivc=305) 66 % EOSINOPHILS FLUID (BEAKER) (test aekw=737) 1 % BASO FLUID (BEAKER) (test ajud=901) 0 % CONTAINER BODY FLUID (BEAKER) (test uttv=9316) EDTA Tube POCT-GLUCOSE [id number] 17:29:00* Test Item Value Reference Range Comments POC-GLUCOSE METER (BEAKER) (test ehfk=5492) 90 mg/dL 70-110 TESTED AT [address] [address] URINALYSIS W/ REFLEX URINE [id number] 16:45:00* Test Item Value Reference Range Comments COLOR (BEAKER) (test ecwq=572) Yellow CLARITY (BEAKER) (test skuk=683) Clear SPECIFIC GRAVITY UA (BEAKER) (test eizq=442) 1.011 1.001-1.035 PH UA (BEAKER) (test eqwq=668) 6.5 5.0-8.0 PROTEIN UA (BEAKER) (test htzb=616) 100 mg/dL Negative GLUCOSE UA (BEAKER) (test rggb=959) 500 mg/dL Negative KETONES UA (BEAKER) (test riqi=231) Negative Negative BILIRUBIN UA (BEAKER) (test nfrx=891) Negative Negative BLOOD UA (BEAKER) (test irej=639) Trace Negative NITRITE UA (BEAKER) (test nktg=583) Negative Negative LEUKOCYTE ESTERASE UA (BEAKER) (test rbuz=920) Negative Negative UROBILINOGEN UA (BEAKER) (test vyii=225) 0.2 mg/dL 0.2-1.0 RBC UA (BEAKER) (test wtwf=045) < /HPF WBC UA (BEAKER) (test xisd=453) < /HPF SQUAMOUS EPITHELIAL (BEAKER) (test zvfg=113) < /HPF SOURCE(BEAKER) (test amva=1896) POCT-GLUCOSE [id number] 11:52:00* Test Item Value Reference Range Comments POC-GLUCOSE METER (BEAKER) (test asrv=4428) 208 mg/dL 70-110 TESTED AT [place] [id number] [facility] [id number] 09:42:00* Test Item Value Reference Range Comments CULTURE (BEAKER) (test gmaj=8139) No growth GRAM STAIN RESULT (BEAKER) (test pajf=0448) No White blood cells seen GRAM STAIN RESULT (BEAKER) (test stbe=501779) No organisms seen No growth01/01/2019 12:43 PMMarina A FerrerPOCT-GLUCOSE [id number] 08:02:00 * Test Item Value Reference Range Comments POC-GLUCOSE METER (BEAKER) (test rjxc=1311) 137 mg/dL 70-110 TESTED AT [address] [address] BASIC METABOLIC [id number] 07:55:00* Test Item Value Reference Range Comments SODIUM (BEAKER) (test pzzx=660) 136 meq/L 136-145 POTASSIUM (BEAKER) (test ksez=310) 4.3 meq/L 3.5-5.1 CHLORIDE (BEAKER) (test gidw=908) 99 meq/L 98-107 CO2 (BEAKER) (test jjad=392) 21 meq/L 22-29 BLOOD UREA NITROGEN (BEAKER) (test pwbh=922) 38 mg/dL 7-21 CREATININE (BEAKER) (test hfud=647) 7.34 mg/dL 0.57-1.25 GLUCOSE RANDOM (BEAKER) (test mtui=938) 149 mg/dL 70-105 CALCIUM (BEAKER) (test fnix=666) 8.2 mg/dL 8.4-10.2 EGFR (BEAKER) (test ayfj=0407) 5 mL/min/1.73 sq m ESTIMATED GFR IS NOT ACCURATE CREATININE CLEARANCE IN PREDICTING GLOMERULAR FILTRATION RATE. ESTIMATED GFR IS NOT APPLICABLE FOR DIALYSIS PATIENTS. CBC W/PLT COUNT & AUTO [id number] 06:26:00* Test Item Value Reference Range Comments WHITE BLOOD CELL COUNT (BEAKER) (test nxio=610) 10.9 K/ L 3.5-10.5 RED BLOOD CELL COUNT (BEAKER) (test funo=431) 2.90 M/ L 3.93-5.22 HEMOGLOBIN (BEAKER) (test fmrr=360) 8.9 GM/DL 11.2-15.7 HEMATOCRIT (BEAKER) (test sitp=689) 30.2 % 34.1-44.9 MEAN CORPUSCULAR VOLUME (BEAKER) (test ahoq=527) 104.1 fL 79.4-94.8 MEAN CORPUSCULAR HEMOGLOBIN (BEAKER) (test teng=035) 30.7 pg 25.6-32.2 MEAN CORPUSCULAR HEMOGLOBIN CONC (BEAKER) (test jzmi=860) 29.5 GM/DL 32.2-35.5 RED CELL DISTRIBUTION WIDTH (BEAKER) (test zoul=580) 15.3 % 11.7-14.4 PLATELET COUNT (BEAKER) (test ssjt=697) 133 K/CU MM 150-450 MEAN PLATELET VOLUME (BEAKER) (test pbkb=319) 10.7 fL 9.4-12.3 NUCLEATED RED BLOOD CELLS (BEAKER) (test nmwd=927) 0 /100 WBC 0-0 NEUTROPHILS RELATIVE PERCENT (BEAKER) (test xefu=849) 56 % LYMPHOCYTES RELATIVE PERCENT (BEAKER) (test iynu=599) 19 % MONOCYTES RELATIVE PERCENT (BEAKER) (test tvmd=018) 6 % EOSINOPHILS RELATIVE PERCENT (BEAKER) (test iamr=677) 18 % BASOPHILS RELATIVE PERCENT (BEAKER) (test srqi=045) 1 % NEUTROPHILS ABSOLUTE COUNT (BEAKER) (test lctz=201) 6.13 K/ L 1.56-6.13 LYMPHOCYTES ABSOLUTE COUNT (BEAKER) (test hcvx=319) 2.05 K/ L 1.18-3.74 MONOCYTES ABSOLUTE COUNT (BEAKER) (test lljc=689) 0.66 K/ L 0.24-0.36 EOSINOPHILS ABSOLUTE COUNT (BEAKER) (test alyp=986) 1.95 K/ L 0.04-0.36 BASOPHILS ABSOLUTE COUNT (BEAKER) (test dtey=700) 0.06 K/ L 0.01-0.08 IMMATURE GRANULOCYTES-RELATIVE PERCENT (BEAKER) (test rawb=4032) 1 % 0-1 POCT-GLUCOSE [id number] 20:45:00* Test Item Value Reference Range Comments POC-GLUCOSE METER (BEAKER) (test vazy=7289) 238 mg/dL 70-110 TESTED AT [address] [address] POCT-GLUCOSE [id number] 17:24:00* Test Item Value Reference Range Comments POC-GLUCOSE METER (BEAKER) (test goia=0397) 141 mg/dL 70-110 TESTED AT [address] [address] POCT-GLUCOSE [id number] 12:21:00* Test Item Value Reference Range Comments POC-GLUCOSE METER (BEAKER) (test scoh=2856) 131 mg/dL 70-110 TESTED AT [address] [address] POCT-GLUCOSE [id number] 07:53:00* Test Item Value Reference Range Comments POC-GLUCOSE METER (BEAKER) (test taop=8890) 187 mg/dL 70-110 TESTED AT [address] [address] BASIC METABOLIC [id number] 05:38:00* Test Item Value Reference Range Comments SODIUM (BEAKER) (test yrls=954) 137 meq/L 136-145 POTASSIUM (BEAKER) (test kjxe=200) 4.2 meq/L 3.5-5.1 CHLORIDE (BEAKER) (test zxgt=441) 99 meq/L 98-107 CO2 (BEAKER) (test wqus=827) 21 meq/L 22-29 BLOOD UREA NITROGEN (BEAKER) (test vnao=637) 41 mg/dL 7-21 CREATININE (BEAKER) (test mxul=966) 8.03 mg/dL 0.57-1.25 GLUCOSE RANDOM (BEAKER) (test ztwg=474) 229 mg/dL 70-105 CALCIUM (BEAKER) (test sfso=242) 8.1 mg/dL 8.4-10.2 EGFR (BEAKER) (test kjbe=5248) 5 mL/min/1.73 sq m ESTIMATED GFR IS NOT ACCURATE CREATININE CLEARANCE IN PREDICTING GLOMERULAR FILTRATION RATE. ESTIMATED GFR IS NOT APPLICABLE FOR DIALYSIS PATIENTS. CBC W/PLT COUNT & AUTO [id number] 05:13:00* Test Item Value Reference Range Comments WHITE BLOOD CELL COUNT (BEAKER) (test wepp=165) 10.6 K/ L 3.5-10.5 RED BLOOD CELL COUNT (BEAKER) (test cptn=312) 3.21 M/ L 3.93-5.22 HEMOGLOBIN (BEAKER) (test hrzo=919) 9.8 GM/DL 11.2-15.7 HEMATOCRIT (BEAKER) (test bsuz=371) 32.5 % 34.1-44.9 MEAN CORPUSCULAR VOLUME (BEAKER) (test ebnn=742) 101.2 fL 79.4-94.8 MEAN CORPUSCULAR HEMOGLOBIN (BEAKER) (test wuqa=695) 30.5 pg 25.6-32.2 MEAN CORPUSCULAR HEMOGLOBIN CONC (BEAKER) (test mgvl=331) 30.2 GM/DL 32.2-35.5 RED CELL DISTRIBUTION WIDTH (BEAKER) (test cxws=879) 15.4 % 11.7-14.4 PLATELET COUNT (BEAKER) (test nstd=709) 150 K/CU MM 150-450 MEAN PLATELET VOLUME (BEAKER) (test ryge=623) 10.4 fL 9.4-12.3 NUCLEATED RED BLOOD CELLS (BEAKER) (test fkqf=782) 0 /100 WBC 0-0 NEUTROPHILS RELATIVE PERCENT (BEAKER) (test iiar=740) 58 % LYMPHOCYTES RELATIVE PERCENT (BEAKER) (test hluq=491) 18 % MONOCYTES RELATIVE PERCENT (BEAKER) (test qxlx=803) 5 % EOSINOPHILS RELATIVE PERCENT (BEAKER) (test ukao=154) 17 % BASOPHILS RELATIVE PERCENT (BEAKER) (test wguz=082) 1 % NEUTROPHILS ABSOLUTE COUNT (BEAKER) (test qdnc=524) 6.13 K/ L 1.56-6.13 LYMPHOCYTES ABSOLUTE COUNT (BEAKER) (test ubgk=492) 1.92 K/ L 1.18-3.74 MONOCYTES ABSOLUTE COUNT (BEAKER) (test qoas=747) 0.54 K/ L 0.24-0.36 EOSINOPHILS ABSOLUTE COUNT (BEAKER) (test wejh=944) 1.83 K/ L 0.04-0.36 BASOPHILS ABSOLUTE COUNT (BEAKER) (test tnmm=052) 0.06 K/ L 0.01-0.08 IMMATURE GRANULOCYTES-RELATIVE PERCENT (BEAKER) (test dfbh=7633) 1 % 0-1 POCT-GLUCOSE [id number] 21:43:00* Test Item Value Reference Range Comments POC-GLUCOSE METER (BEAKER) (test eqly=0568) 254 mg/dL 70-110 TESTED AT [address] [address] POCT-GLUCOSE [id number] 17:15:00* Test Item Value Reference Range Comments POC-GLUCOSE METER (BEAKER) (test rdih=9382) 124 mg/dL 70-110 TESTED AT [address] [address] POCT-GLUCOSE [id number] 12:11:00* Test Item Value Reference Range Comments POC-GLUCOSE METER (BEAKER) (test osvc=5089) 113 mg/dL 70-110 TESTED AT [address] [address] POCT-GLUCOSE [id number] 08:00:00* Test Item Value Reference Range Comments POC-GLUCOSE METER (BEAKER) (test pdkj=8307) 122 mg/dL 70-110 TESTED AT [address] [address] CBC W/PLT COUNT & AUTO [id number] 07:28:00* Test Item Value Reference Range Comments WHITE BLOOD CELL COUNT (BEAKER) (test zpsw=720) 10.1 K/ L 3.5-10.5 RED BLOOD CELL COUNT (BEAKER) (test jkrc=461) 3.24 M/ L 3.93-5.22 HEMOGLOBIN (BEAKER) (test pcag=764) 10.0 GM/DL 11.2-15.7 HEMATOCRIT (BEAKER) (test bbam=858) 32.9 % 34.1-44.9 MEAN CORPUSCULAR VOLUME (BEAKER) (test hsnw=716) 101.5 fL 79.4-94.8 MEAN CORPUSCULAR HEMOGLOBIN (BEAKER) (test qtuh=794) 30.9 pg 25.6-32.2 MEAN CORPUSCULAR HEMOGLOBIN CONC (BEAKER) (test snyf=728) 30.4 GM/DL 32.2-35.5 RED CELL DISTRIBUTION WIDTH (BEAKER) (test xnti=980) 15.5 % 11.7-14.4 PLATELET COUNT (BEAKER) (test oujz=682) 155 K/CU MM 150-450 MEAN PLATELET VOLUME (BEAKER) (test qalj=923) 10.4 fL 9.4-12.3 NUCLEATED RED BLOOD CELLS (BEAKER) (test clux=406) 0 /100 WBC 0-0 (CELLAVISION MANUAL DIFF)2018-12-31 07:28:00* Test Item Value Reference Range Comments NEUTROPHILS - REL (CELLAVISION)(BEAKER) (test cptd=0052) 60 % LYMPHOCYTES - REL (CELLAVISION)(BEAKER) (test fzwm=0708) 16 % MONOCYTES - REL (CELLAVISION)(BEAKER) (test izsa=4364) 4 % EOSINOPHILS - REL (CELLAVISION)(BEAKER) (test yuty=3021) 19 % BASOPHILS - REL (CELLAVISION)(BEAKER) (test tsgx=3582) 1 % NEUTROPHILS - ABS (CELLAVISION)(BEAKER) (test ebge=8294) 6.06 K/ul 1.56-6.13 LYMPHOCYTES - ABS (CELLAVISION)(BEAKER) (test bdie=8087) 1.62 K/ul 1.18-3.74 MONOCYTES - ABS (CELLAVISION)(BEAKER) (test rhxo=0628) 0.40 K/uL 0.24-0.36 EOSINOPHILS - ABS (CELLAVISION)(BEAKER) (test dtwq=7188) 1.92 K/uL 0.04-0.36 BASOPHILS - ABS (CELLAVISION)(BEAKER) (test onvx=1366) 0.10 K/uL 0.01-0.08 TOTAL COUNTED (BEAKER) (test pxaj=0154) 100 RBC MORPHOLOGY (BEAKER) (test rlau=582) Normal WBC MORPHOLOGY (BEAKER) (test iwmj=464) Normal PLT MORPHOLOGY (BEAKER) (test iiob=774) Normal ARTIFACT (CELLAVISION)(BEAKER) (test azhq=2224) Present PLATELET CONCENTRATION (CELLAVISION)(BEAKER) (test ynuk=8363) Adequate Received comment: User comments: Slide comments: [id number] 06:09:00* Test Item Value Reference Range Comments FERRITIN (BEAKER) (test heki=824) 2090 ng/mL 5-275 IRON, TIBC, % SAT. (WITHOUT FERRITIN)2018-12-31 05:28:00* Test Item Value Reference Range Comments IRON (BEAKER) (test yoki=878) 61.0 ug/dL 40.0-160.0 TOTAL IRON BINDING CAPACITY (BEAKER) (test bsyd=916) 139 ug/dL 250-450 IRON % SATURATION (2) (BEAKER) (test jmwj=8245) 44 % 20-55 C-REACTIVE [id number] 05:25:00* Test Item Value Reference Range Comments C-REACTIVE PROTEIN (BEAKER) (test bqvl=997) 10.30 mg/dL 0.00-0.50 BASIC METABOLIC [id number] 05:24:00* Test Item Value Reference Range Comments SODIUM (BEAKER) (test jrbt=171) 139 meq/L 136-145 POTASSIUM (BEAKER) (test zxtb=830) 4.3 meq/L 3.5-5.1 CHLORIDE (BEAKER) (test ccds=178) 101 meq/L 98-107 CO2 (BEAKER) (test zytm=164) 21 meq/L 22-29 BLOOD UREA NITROGEN (BEAKER) (test wjxj=424) 41 mg/dL 7-21 CREATININE (BEAKER) (test juwy=769) 8.89 mg/dL 0.57-1.25 GLUCOSE RANDOM (BEAKER) (test pbld=662) 157 mg/dL 70-105 CALCIUM (BEAKER) (test oefd=442) 8.3 mg/dL 8.4-10.2 EGFR (BEAKER) (test nyaq=0803) 4 mL/min/1.73 sq m ESTIMATED GFR IS NOT ACCURATE CREATININE CLEARANCE IN PREDICTING GLOMERULAR FILTRATION RATE. ESTIMATED GFR IS NOT APPLICABLE FOR DIALYSIS PATIENTS. [id number] 05:22:00* Test Item Value Reference Range Comments PHOSPHORUS (BEAKER) (test wfls=658) 8.4 mg/dL 2.3-4.7 [id number] 05:22:00* Test Item Value Reference Range Comments MAGNESIUM (BEAKER) (test wxtl=849) 2.5 mg/dL 1.6-2.6 LIPID [id number] 05:22:00* Test Item Value Reference Range Comments TRIGLYCERIDES (BEAKER) (test eifp=565) 119 mg/dL CHOLESTEROL (BEAKER) (test dajk=983) 99 mg/dL HDL CHOLESTEROL (BEAKER) (test sqao=425) 34 mg/dL LDL CHOLESTEROL CALCULATED (BEAKER) (test zwbw=779) 41 mg/dL Triglyceride Reference Range: Low Risk <150 Borderline 150-199 High Risk 200-499 Very High Risk >=500Cholesterol Reference Range: Low Risk <200 Borderline 200-239 High Risk >240HDL Cholesterol Reference Range: Low Risk >=60 High Risk <40LDL Cholesterol Reference Range: Optimal <100 Near Optimal 100-129 Borderline 130-159 High 160-189 Very High >=190 POCT- GLUCOSE [id number] 21:11:00* Test Item Value Reference Range Comments POC-GLUCOSE METER (BEAKER) (test zrra=8604) 223 mg/dL 70-110 TESTED AT [place] [id number] [facility] [address] POCT-GLUCOSE [id number] 16:16:00* Test Item Value Reference Range Comments POC-GLUCOSE METER (BEAKER) (test tnxz=3371) 242 mg/dL 70-110 TESTED AT [place] [id number] [facility] [address] POCT-GLUCOSE [id number] 13:17:00* Test Item Value Reference Range Comments POC-GLUCOSE METER (BEAKER) (test gerq=4652) 268 mg/dL 70-110 TESTED AT [place] [id number] [facility] [address] POCT-GLUCOSE [id number] 08:16:00* Test Item Value Reference Range Comments POC-GLUCOSE METER (BEAKER) (test mztg=5574) 142 mg/dL 70-110 TESTED AT [facility] [address] [facility] [address] HEMOGLOBIN [id number] 07:04:00* Test Item Value Reference Range Comments HEMOGLOBIN A1C (BEAKER) (test grec=195) 7.4 % 4.3-6.1 BASIC METABOLIC [id number] 05:29:00* Test Item Value Reference Range Comments SODIUM (BEAKER) (test vqfq=391) 139 meq/L 136-145 POTASSIUM (BEAKER) (test ohoe=280) 4.6 meq/L 3.5-5.1 CHLORIDE (BEAKER) (test bctb=772) 103 meq/L 98-107 CO2 (BEAKER) (test vnnn=374) 21 meq/L 22-29 BLOOD UREA NITROGEN (BEAKER) (test cdsz=062) 43 mg/dL 7-21 CREATININE (BEAKER) (test ohsc=445) 8.99 mg/dL 0.57-1.25 GLUCOSE RANDOM (BEAKER) (test nfpc=375) 224 mg/dL 70-105 CALCIUM (BEAKER) (test fvaa=588) 8.0 mg/dL 8.4-10.2 EGFR (BEAKER) (test ivej=6483) 4 mL/min/1.73 sq m ESTIMATED GFR IS NOT ACCURATE CREATININE CLEARANCE IN PREDICTING GLOMERULAR FILTRATION RATE. ESTIMATED GFR IS NOT APPLICABLE FOR DIALYSIS PATIENTS. CBC W/PLT COUNT & AUTO [id number] 04:54:00* Test Item Value Reference Range Comments WHITE BLOOD CELL COUNT (BEAKER) (test rgdi=821) 10.3 K/ L 3.5-10.5 RED BLOOD CELL COUNT (BEAKER) (test olej=425) 3.21 M/ L 3.93-5.22 HEMOGLOBIN (BEAKER) (test zggy=370) 10.0 GM/DL 11.2-15.7 HEMATOCRIT (BEAKER) (test vexg=338) 32.1 % 34.1-44.9 MEAN CORPUSCULAR VOLUME (BEAKER) (test mocs=917) 100.0 fL 79.4-94.8 MEAN CORPUSCULAR HEMOGLOBIN (BEAKER) (test gmwy=538) 31.2 pg 25.6-32.2 MEAN CORPUSCULAR HEMOGLOBIN CONC (BEAKER) (test yrpr=154) 31.2 GM/DL 32.2-35.5 RED CELL DISTRIBUTION WIDTH (BEAKER) (test bepx=589) 15.5 % 11.7-14.4 PLATELET COUNT (BEAKER) (test mzdf=797) 154 K/CU MM 150-450 MEAN PLATELET VOLUME (BEAKER) (test jmsr=642) 10.8 fL 9.4-12.3 NUCLEATED RED BLOOD CELLS (BEAKER) (test ykdm=738) 0 /100 WBC 0-0 NEUTROPHILS RELATIVE PERCENT (BEAKER) (test adou=296) 60 % LYMPHOCYTES RELATIVE PERCENT (BEAKER) (test jqiu=536) 21 % MONOCYTES RELATIVE PERCENT (BEAKER) (test obbe=702) 6 % EOSINOPHILS RELATIVE PERCENT (BEAKER) (test ramw=630) 12 % BASOPHILS RELATIVE PERCENT (BEAKER) (test eizg=775) 1 % NEUTROPHILS ABSOLUTE COUNT (BEAKER) (test jutv=759) 6.21 K/ L 1.56-6.13 LYMPHOCYTES ABSOLUTE COUNT (BEAKER) (test yyfv=742) 2.12 K/ L 1.18-3.74 MONOCYTES ABSOLUTE COUNT (BEAKER) (test arup=802) 0.57 K/ L 0.24-0.36 EOSINOPHILS ABSOLUTE COUNT (BEAKER) (test uomw=560) 1.19 K/ L 0.04-0.36 BASOPHILS ABSOLUTE COUNT (BEAKER) (test ccet=946) 0.07 K/ L 0.01-0.08 IMMATURE GRANULOCYTES-RELATIVE PERCENT (BEAKER) (test ivsd=1637) 1 % 0-1 POCT-GLUCOSE [id number] 22:00:00* Test Item Value Reference Range Comments POC-GLUCOSE METER (BEAKER) (test fspi=5914) 280 mg/dL 70-110 TESTED AT [facility] [address] [facility] [address] BODY FLUID CELL COUNT WITH [id number] 21:33:00* Test Item Value Reference Range Comments APPEARANCE FLUID (BEAKER) (test pvfp=564) Slightly Hazy Clear COLOR FLUID (BEAKER) (test vhjb=316) Straw Colorless, Straw RBC FLUID (BEAKER) (test lbbj=622) 26 /cu mm <=1 ADJUSTED WBC FLUID (BEAKER) (test qiok=7916) 68 /cu mm <=5 LINING CELLS (BEAKER) (test sqvj=9029) 0 /cu mm <=1 NEUTROPHILS FLUID (BEAKER) (test nwqe=5748) 11 % LYMPHS FLUID (BEAKER) (test nbdu=322) 12 % MONO/MACROPHAGE FLUID (BEAKER) (test qmfk=044) 74 % EOSINOPHILS FLUID (BEAKER) (test iomi=561) 2 % BASO FLUID (BEAKER) (test iacf=154) 1 % CONTAINER BODY FLUID (BEAKER) (test ezkr=3853) EDTA Tube BASIC METABOLIC [id number] 12:29:00* Test Item Value Reference Range Comments SODIUM (BEAKER) (test nfoo=130) 139 meq/L 136-145 POTASSIUM (BEAKER) (test uiwe=645) 4.4 meq/L 3.5-5.1 Specimen slightly hemolyzed CHLORIDE (BEAKER) (test petd=191) 101 meq/L 98-107 CO2 (BEAKER) (test mgzy=742) 24 meq/L 22-29 BLOOD UREA NITROGEN (BEAKER) (test vmqe=765) 46 mg/dL 7-21 CREATININE (BEAKER) (test wvyb=615) 9.07 mg/dL 0.57-1.25 Specimen slightly hemolyzed GLUCOSE RANDOM (BEAKER) (test gulw=700) 191 mg/dL 70-105 CALCIUM (BEAKER) (test qkke=524) 7.7 mg/dL 8.4-10.2 EGFR (BEAKER) (test icfe=8040) 4 mL/min/1.73 sq m ESTIMATED GFR IS NOT ACCURATE CREATININE CLEARANCE IN PREDICTING GLOMERULAR FILTRATION RATE. ESTIMATED GFR IS NOT APPLICABLE FOR DIALYSIS PATIENTS. CBC W/PLT COUNT & AUTO [id number] 12:06:00* Test Item Value Reference Range Comments WHITE BLOOD CELL COUNT (BEAKER) (test acty=810) 10.1 K/ L 3.5-10.5 RED BLOOD CELL COUNT (BEAKER) (test wkox=795) 3.37 M/ L 3.93-5.22 HEMOGLOBIN (BEAKER) (test irga=044) 10.3 GM/DL 11.2-15.7 HEMATOCRIT (BEAKER) (test lfnp=729) 33.5 % 34.1-44.9 MEAN CORPUSCULAR VOLUME (BEAKER) (test qhma=820) 99.4 fL 79.4-94.8 MEAN CORPUSCULAR HEMOGLOBIN (BEAKER) (test lsfi=289) 30.6 pg 25.6-32.2 MEAN CORPUSCULAR HEMOGLOBIN CONC (BEAKER) (test ewao=529) 30.7 GM/DL 32.2-35.5 RED CELL DISTRIBUTION WIDTH (BEAKER) (test ztud=152) 15.4 % 11.7-14.4 PLATELET COUNT (BEAKER) (test yfka=603) 157 K/CU MM 150-450 MEAN PLATELET VOLUME (BEAKER) (test tjab=133) 10.2 fL 9.4-12.3 NUCLEATED RED BLOOD CELLS (BEAKER) (test twfp=586) 0 /100 WBC 0-0 NEUTROPHILS RELATIVE PERCENT (BEAKER) (test oajq=196) 62 % LYMPHOCYTES RELATIVE PERCENT (BEAKER) (test ymfz=921) 19 % MONOCYTES RELATIVE PERCENT (BEAKER) (test ssvv=960) 5 % EOSINOPHILS RELATIVE PERCENT (BEAKER) (test ojzv=744) 12 % BASOPHILS RELATIVE PERCENT (BEAKER) (test phil=043) 1 % NEUTROPHILS ABSOLUTE COUNT (BEAKER) (test bvhl=592) 6.29 K/ L 1.56-6.13 LYMPHOCYTES ABSOLUTE COUNT (BEAKER) (test molh=909) 1.95 K/ L 1.18-3.74 MONOCYTES ABSOLUTE COUNT (BEAKER) (test yleq=124) 0.46 K/ L 0.24-0.36 EOSINOPHILS ABSOLUTE COUNT (BEAKER) (test qywo=793) 1.19 K/ L 0.04-0.36 BASOPHILS ABSOLUTE COUNT (BEAKER) (test ffcp=905) 0.06 K/ L 0.01-0.08 IMMATURE GRANULOCYTES-RELATIVE PERCENT (BEAKER) (test cknc=6150) 1 % 0-1 RAD, FOOT, MIN 3 VIEWS, [id number] 12:01:00Reason for exam:->LEG PAINrigth leg pain and swellingReason for exam:->HEADACHEFINAL REPORT RAD, FOOT, MIN 3 VIEWS, RIGHT INDICATION: LEG PAINHEADACHE COMPARISON: None TECHNIQUE: AP, lateral and oblique radiograph of the foot FINDINGS/IMPRESSION: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 The fifth phalanx is amputated. Fourth metatarsal is amputated. The great toe, second and third metatarsals are partially present. Two middle and distal phalanges are noted and it is unclear which metatarsal the heart associated with. While some changes appear postsurgical, remaining phalanges are concerning for superimposed infection and/or inflammation. Correlation for open wound may be obtained clinically. Signed: Ava Ruizepsienna Verified Date/Time: 12/29/2018 12 :01:28 Reading Location: [facility] Radiology Reading Room Electronically si gned by: AVA RUIZ MD on 12/29/2018 12:01 PM PERITONEAL DIALYSIS EFFLUENT [id number] 12:53:00* Test Item Value Reference Range Comments CULTURE (BEAKER) (test ogev=8677) No growth GRAM STAIN RESULT (BEAKER) (test ckgy=0366) 1+ White blood cells seen GRAM STAIN RESULT (BEAKER) (test mzdn=51752) No organisms seen POCT-GLUCOSE [id number] 09:57:00* Test Item Value Reference Range Comments POC-GLUCOSE METER (BEAKER) (test cckp=7007) 148 mg/dL 70-110 TESTED AT [facility] [address] [facility] [address] CBC W/PLT COUNT & AUTO [id number] 06:20:00* Test Item Value Reference Range Comments WHITE BLOOD CELL COUNT (BEAKER) (test bfit=182) 6.6 K/ L 3.5-10.5 RED BLOOD CELL COUNT (BEAKER) (test dsjb=218) 3.52 M/ L 3.93-5.22 HEMOGLOBIN (BEAKER) (test spwa=002) 10.8 GM/DL 11.2-15.7 HEMATOCRIT (BEAKER) (test tvii=339) 35.1 % 34.1-44.9 MEAN CORPUSCULAR VOLUME (BEAKER) (test aggf=509) 99.7 fL 79.4-94.8 MEAN CORPUSCULAR HEMOGLOBIN (BEAKER) (test yhrw=578) 30.7 pg 25.6-32.2 MEAN CORPUSCULAR HEMOGLOBIN CONC (BEAKER) (test djwe=336) 30.8 GM/DL 32.2-35.5 RED CELL DISTRIBUTION WIDTH (BEAKER) (test tdzn=106) 16.1 % 11.7-14.4 PLATELET COUNT (BEAKER) (test utsu=308) 197 K/CU MM 150-450 MEAN PLATELET VOLUME (BEAKER) (test xcay=563) 9.9 fL 9.4-12.3 NUCLEATED RED BLOOD CELLS (BEAKER) (test tqjw=554) 0 /100 WBC 0-0 NEUTROPHILS RELATIVE PERCENT (BEAKER) (test bejh=995) 60 % LYMPHOCYTES RELATIVE PERCENT (BEAKER) (test wjkh=372) 28 % MONOCYTES RELATIVE PERCENT (BEAKER) (test evmc=839) 7 % EOSINOPHILS RELATIVE PERCENT (BEAKER) (test qzsk=673) 4 % BASOPHILS RELATIVE PERCENT (BEAKER) (test jusx=863) 1 % NEUTROPHILS ABSOLUTE COUNT (BEAKER) (test tziy=864) 3.94 K/ L 1.56-6.13 LYMPHOCYTES ABSOLUTE COUNT (BEAKER) (test xqup=816) 1.86 K/ L 1.18-3.74 MONOCYTES ABSOLUTE COUNT (BEAKER) (test qjlq=347) 0.47 K/ L 0.24-0.36 EOSINOPHILS ABSOLUTE COUNT (BEAKER) (test xfko=229) 0.26 K/ L 0.04-0.36 BASOPHILS ABSOLUTE COUNT (BEAKER) (test jild=108) 0.05 K/ L 0.01-0.08 IMMATURE GRANULOCYTES-RELATIVE PERCENT (BEAKER) (test jhet=5642) 0 % 0-1 BODY FLUID CELL COUNT WITH [id number] 22:28:00* Test Item Value Reference Range Comments APPEARANCE FLUID (BEAKER) (test uyqn=450) Clear Clear COLOR FLUID (BEAKER) (test rguf=551) Straw Colorless, Straw RBC FLUID (BEAKER) (test txnl=662) 225 /cu mm <=1 ADJUSTED WBC FLUID (BEAKER) (test xtwn=7662) 416 /cu mm <=5 LINING CELLS (BEAKER) (test vftt=2840) 0 /cu mm <=1 NEUTROPHILS FLUID (BEAKER) (test galj=8095) 0 % Unable to report diff due to degenerated WBCs LYMPHS FLUID (BEAKER) (test trff=463) 0 % MONO/MACROPHAGE FLUID (BEAKER) (test ekzt=325) 0 % EOSINOPHILS FLUID (BEAKER) (test ayrr=941) 0 % BASO FLUID (BEAKER) (test fbsi=682) 0 % CONTAINER BODY FLUID (BEAKER) (test mlho=3010) EDTA Tube POCT-GLUCOSE [id number] 21:22:00* Test Item Value Reference Range Comments POC-GLUCOSE METER (BEAKER) (test hwhb=0533) 177 mg/dL 70-110 TESTED AT [place] [id number] [facility] [address] POCT-GLUCOSE [id number] 18:10:00* Test Item Value Reference Range Comments POC-GLUCOSE METER (BEAKER) (test cbxl=4515) 127 mg/dL 70-110 TESTED AT [address] [address] POCT-GLUCOSE [id number] 13:57:00* Test Item Value Reference Range Comments POC-GLUCOSE METER (BEAKER) (test cikg=7298) 129 mg/dL 70-110 TESTED AT [address] [address] BASIC METABOLIC [id number] 08:55:00* Test Item Value Reference Range Comments SODIUM (BEAKER) (test zwxu=104) 140 meq/L 136-145 POTASSIUM (BEAKER) (test thyu=199) 4.9 meq/L 3.5-5.1 CHLORIDE (BEAKER) (test gayz=183) 104 meq/L 98-107 CO2 (BEAKER) (test vgav=181) 23 meq/L 22-29 BLOOD UREA NITROGEN (BEAKER) (test ycdh=391) 38 mg/dL 7-21 CREATININE (BEAKER) (test rnee=944) 7.85 mg/dL 0.57-1.25 GLUCOSE RANDOM (BEAKER) (test hjpa=630) 101 mg/dL 70-105 CALCIUM (BEAKER) (test qman=011) 8.6 mg/dL 8.4-10.2 EGFR (BEAKER) (test isvp=4176) 5 mL/min/1.73 sq m ESTIMATED GFR IS NOT ACCURATE CREATININE CLEARANCE IN PREDICTING GLOMERULAR FILTRATION RATE. ESTIMATED GFR IS NOT APPLICABLE FOR DIALYSIS PATIENTS. POCT-GLUCOSE [id number] 03:02:00* Test Item Value Reference Range Comments POC-GLUCOSE METER (BEAKER) (test klxl=2940) 71 mg/dL 70-110 TESTED AT [place] [id number] [facility] [address] POCT-GLUCOSE [id number] 22:35:00* Test Item Value Reference Range Comments POC-GLUCOSE METER (BEAKER) (test hgno=3093) 82 mg/dL 70-110 TESTED AT [facility] [address] [facility] [address] POCT-GLUCOSE [id number] 21:42:00* Test Item Value Reference Range Comments POC-GLUCOSE METER (BEAKER) (test clkr=0464) 48 mg/dL 70-110 TESTED AT [facility] [address] [facility] [address] TROPONIN [id number] 18:29:00* Test Item Value Reference Range Comments TROPONIN I (BEAKER) (test sbwo=615) 0.07 ng/mL 0.00-0.03 Troponin I (TnI) levels must be interpreted in the context of the presenting sym ptoms and the clinical findings. Elevated TnI levels indicate myocardial damage, but are not specific for ischemic heart disease. Elevated TnI levels are seen in patients with other cardiac conditions (including myocarditis and congestive h eart failure), and slight TnI elevations occur in patients with other conditions , including sepsis, renal failure, acidosis, acute neurological disease, and per sistent tachyarrhythmia.B-TYPE NATRIURETIC FACTOR (BNP)2018-11-16 18:25:00* Test Item Value Reference Range Comments B-TYPE NATRIURETIC PEPTIDE (BEAKER) (test wjtj=369) 918 pg/mL 0-100 BASIC METABOLIC [id number] 18:23:00* Test Item Value Reference Range Comments SODIUM (BEAKER) (test dmjj=925) 140 meq/L 136-145 POTASSIUM (BEAKER) (test pwfz=690) 4.0 meq/L 3.5-5.1 CHLORIDE (BEAKER) (test zcqd=701) 102 meq/L 98-107 CO2 (BEAKER) (test mxyb=869) 24 meq/L 22-29 BLOOD UREA NITROGEN (BEAKER) (test lvta=002) 36 mg/dL 7-21 CREATININE (BEAKER) (test bnhu=996) 7.67 mg/dL 0.57-1.25 GLUCOSE RANDOM (BEAKER) (test bqtg=005) 145 mg/dL 70-105 CALCIUM (BEAKER) (test ehhp=691) 8.5 mg/dL 8.4-10.2 EGFR (BEAKER) (test ntjg=2172) 5 mL/min/1.73 sq m ESTIMATED GFR IS NOT ACCURATE CREATININE CLEARANCE IN PREDICTING GLOMERULAR FILTRATION RATE. ESTIMATED GFR IS NOT APPLICABLE FOR DIALYSIS PATIENTS. RAD, CHEST, 1 VIEW, NON [id number] 18:23:00Reason for exam:->LEG PAIN/ edema/ SOBFINAL REPORT Chest, portable AP view History: Leg pain, edema, shortness of breath Comparison: 04/22/2017 IMPRESSION: The heart is stable in size. Patient is status post median sternotomy and CABG. There is mild interstitial edema. Left basilar atelectasis is present. No focal consolidation, sizable pleural effusion, or pneumothorax. Signed: Mg Barrientosort Verified Date/Time: 11/16/2018 18:23:43 Reading Location: [address] Consult Reading Room [id number] 18:22:00* Test Item Value Reference Range Comments MAGNESIUM (BEAKER) (test wskt=489) 2.4 mg/dL 1.6-2.6 CBC W/PLT COUNT & AUTO [id number] 18:07:00* Test Item Value Reference Range Comments WHITE BLOOD CELL COUNT (BEAKER) (test wxen=917) 8.1 K/ L 3.5-10.5 RED BLOOD CELL COUNT (BEAKER) (test ijvn=314) 3.73 M/ L 3.93-5.22 HEMOGLOBIN (BEAKER) (test qdmn=329) 11.6 GM/DL 11.2-15.7 HEMATOCRIT (BEAKER) (test swwd=890) 36.5 % 34.1-44.9 MEAN CORPUSCULAR VOLUME (BEAKER) (test yybl=734) 97.9 fL 79.4-94.8 MEAN CORPUSCULAR HEMOGLOBIN (BEAKER) (test ejek=892) 31.1 pg 25.6-32.2 MEAN CORPUSCULAR HEMOGLOBIN CONC (BEAKER) (test qcvv=863) 31.8 GM/DL 32.2-35.5 RED CELL DISTRIBUTION WIDTH (BEAKER) (test fkxw=052) 16.0 % 11.7-14.4 PLATELET COUNT (BEAKER) (test gjws=093) 230 K/CU MM 150-450 MEAN PLATELET VOLUME (BEAKER) (test gzka=764) 9.5 fL 9.4-12.3 NUCLEATED RED BLOOD CELLS (BEAKER) (test fvrr=073) 0 /100 WBC 0-0 NEUTROPHILS RELATIVE PERCENT (BEAKER) (test uzud=712) 66 % LYMPHOCYTES RELATIVE PERCENT (BEAKER) (test nfzq=595) 24 % MONOCYTES RELATIVE PERCENT (BEAKER) (test inhh=080) 6 % EOSINOPHILS RELATIVE PERCENT (BEAKER) (test qeyt=405) 3 % BASOPHILS RELATIVE PERCENT (BEAKER) (test gksf=456) 1 % NEUTROPHILS ABSOLUTE COUNT (BEAKER) (test bwwh=321) 5.33 K/ L 1.56-6.13 LYMPHOCYTES ABSOLUTE COUNT (BEAKER) (test shur=654) 1.98 K/ L 1.18-3.74 MONOCYTES ABSOLUTE COUNT (BEAKER) (test qaqm=448) 0.46 K/ L 0.24-0.36 EOSINOPHILS ABSOLUTE COUNT (BEAKER) (test cnkc=698) 0.27 K/ L 0.04-0.36 BASOPHILS ABSOLUTE COUNT (BEAKER) (test isex=844) 0.05 K/ L 0.01-0.08 IMMATURE GRANULOCYTES-RELATIVE PERCENT (BEAKER) (test cwms=8281) 0 % 0-1 ANG, REMOVAL OF TUNNELED CVC W/O [id number] 09:28:00Reason for exam:->not on HD [hemodialysis] anymore [she prefers to continue peritoneal dialysis]Reason for exam:->please remove tunneled RIJ hemodialysis catheter and press for hemostasis [pt on effient for active PAD]FINAL REPORT Right chest tunneled hemodialysis catheter removal History: Patient on peritoneal dialysis, no longer requires tunneled dialysis catheter. Modality: None. Sedation: None Intensive Care Medicine Specialist: MOISÉS Thacker. Pelletising Extruder Operator: Mg Barrientos M.D. Approach: Right anterior chest. Estimated blood loss: < 5 cc. Specimen: None. Technique: The procedure including risks and benefits were explained to the patient, who expressed understanding. After informed writt en consent was obtained, the patient's right anterior chest region was prepped a nd draped in the usual sterile fashion. The skin was anesthetized with lidocaine . The tunneled hemodialysis catheter was then removed in toto with blunt dissect ion and gentle traction. The skin entry site was then dressed with sterile gauze and Tegaderm. The patient tolerated the procedure well. The procedure was per formed by MOISÉS Thacker and directly supervised by Mg Barrientos M.D. Impression: Successful, uncomplicated removal of a right chest tunneled hemodialysis catheter. Signed: Mg Barrientos MDReport Verified Date/Time: 09/25/2018 09:28:46 Reading Location: [facility] [address] Angio Body Reading Room HROMBIN TIME/[id number] 09:32:00* Test Item Value Reference Range Comments PROTIME (BEAKER) (test rhmw=544) 15.2 seconds 11.7-14.7 INR (BEAKER) (test xyab=613) 1.3 <=5.9 RECOMMENDED COUMADIN/WARFARIN INR THERAPY RANGESSTANDARD DOSE: 2.0 - 3.0 Inclu abigail: PROPHYLAXIS for venous thrombosis, systemic embolization; TREATMENT for adriana ous thrombosis and/or pulmonary embolus.HIGH RISK: Target INR is 2.5-3.5 for pat ients with mechanical heart valves.POCT-GLUCOSE [id number] 08:04:00* Test Item Value Reference Range Comments POC-GLUCOSE METER (BEAKER) (test kfct=1132) 119 mg/dL 70-110 TESTED AT [address] [address] PERITONEAL DIALYSIS EFFLUENT [id number] 08:00:00* Test Item Value Reference Range Comments CULTURE (BEAKER) (test svmo=5617) No growth GRAM STAIN RESULT (BEAKER) (test jmsn=5814) <1+ White blood cells seen GRAM STAIN RESULT (BEAKER) (test vsan=00112) No organisms seen BASIC METABOLIC [id number] 05:16:00* Test Item Value Reference Range Comments SODIUM (BEAKER) (test shuh=713) 140 meq/L 136-145 POTASSIUM (BEAKER) (test dvek=882) 3.5 meq/L 3.5-5.1 CHLORIDE (BEAKER) (test mwnj=839) 102 meq/L 98-107 CO2 (BEAKER) (test qhko=684) 22 meq/L 22-29 BLOOD UREA NITROGEN (BEAKER) (test gxxt=242) 48 mg/dL 7-21 CREATININE (BEAKER) (test djha=050) 8.96 mg/dL 0.57-1.25 GLUCOSE RANDOM (BEAKER) (test qact=698) 197 mg/dL 70-105 CALCIUM (BEAKER) (test atjc=555) 8.5 mg/dL 8.4-10.2 EGFR (BEAKER) (test akpb=4962) 4 mL/min/1.73 sq m ESTIMATED GFR IS NOT ACCURATE CREATININE CLEARANCE IN PREDICTING GLOMERULAR FILTRATION RATE. ESTIMATED GFR IS NOT APPLICABLE FOR DIALYSIS PATIENTS. CBC W/PLT COUNT & AUTO [id number] 04:23:00* Test Item Value Reference Range Comments WHITE BLOOD CELL COUNT (BEAKER) (test mjng=959) 8.6 K/ L 3.5-10.5 RED BLOOD CELL COUNT (BEAKER) (test amah=570) 3.58 M/ L 3.93-5.22 HEMOGLOBIN (BEAKER) (test rvjn=689) 10.0 GM/DL 11.2-15.7 HEMATOCRIT (BEAKER) (test jpis=071) 31.8 % 34.1-44.9 MEAN CORPUSCULAR VOLUME (BEAKER) (test relq=627) 88.8 fL 79.4-94.8 MEAN CORPUSCULAR HEMOGLOBIN (BEAKER) (test isqp=176) 27.9 pg 25.6-32.2 MEAN CORPUSCULAR HEMOGLOBIN CONC (BEAKER) (test gkve=586) 31.4 GM/DL 32.2-35.5 RED CELL DISTRIBUTION WIDTH (BEAKER) (test gzml=345) 16.9 % 11.7-14.4 PLATELET COUNT (BEAKER) (test hkdx=637) 140 K/CU MM 150-450 MEAN PLATELET VOLUME (BEAKER) (test pacv=454) 10.9 fL 9.4-12.3 NUCLEATED RED BLOOD CELLS (BEAKER) (test qlhi=320) 0 /100 WBC 0-0 NEUTROPHILS RELATIVE PERCENT (BEAKER) (test euhm=078) 67 % LYMPHOCYTES RELATIVE PERCENT (BEAKER) (test tzhz=686) 23 % MONOCYTES RELATIVE PERCENT (BEAKER) (test cefb=468) 7 % EOSINOPHILS RELATIVE PERCENT (BEAKER) (test qfcg=553) 2 % BASOPHILS RELATIVE PERCENT (BEAKER) (test elhu=359) 0 % NEUTROPHILS ABSOLUTE COUNT (BEAKER) (test mbss=212) 5.74 K/ L 1.56-6.13 LYMPHOCYTES ABSOLUTE COUNT (BEAKER) (test rdac=165) 2.00 K/ L 1.18-3.74 MONOCYTES ABSOLUTE COUNT (BEAKER) (test jbql=171) 0.59 K/ L 0.24-0.36 EOSINOPHILS ABSOLUTE COUNT (BEAKER) (test btrk=295) 0.21 K/ L 0.04-0.36 BASOPHILS ABSOLUTE COUNT (BEAKER) (test plkf=010) 0.03 K/ L 0.01-0.08 IMMATURE GRANULOCYTES-RELATIVE PERCENT (BEAKER) (test htfw=2490) 1 % 0-1 POCT-GLUCOSE [id number] 17:33:00* Test Item Value Reference Range Comments POC-GLUCOSE METER (BEAKER) (test mcnz=6496) 142 mg/dL 70-110 TESTED AT [place] [address] POCT-GLUCOSE [id number] 16:38:00* Test Item Value Reference Range Comments POC-GLUCOSE METER (BEAKER) (test gvfu=0786) 181 mg/dL 70-110 TESTED AT [address] [address] POCT-GLUCOSE [id number] 12:56:00* Test Item Value Reference Range Comments POC-GLUCOSE METER (BEAKER) (test pfgc=2978) 203 mg/dL 70-110 TESTED AT [address] [address] BASIC METABOLIC [id number] 04:05:00* Test Item Value Reference Range Comments SODIUM (BEAKER) (test rvor=136) 143 meq/L 136-145 POTASSIUM (BEAKER) (test rzfm=406) 3.7 meq/L 3.5-5.1 CHLORIDE (BEAKER) (test mzon=657) 105 meq/L 98-107 CO2 (BEAKER) (test ykck=084) 22 meq/L 22-29 BLOOD UREA NITROGEN (BEAKER) (test zpmp=550) 48 mg/dL 7-21 CREATININE (BEAKER) (test mhxv=458) 9.28 mg/dL 0.57-1.25 GLUCOSE RANDOM (BEAKER) (test uwel=013) 159 mg/dL 70-105 CALCIUM (BEAKER) (test ysvy=564) 8.3 mg/dL 8.4-10.2 EGFR (BEAKER) (test unzg=2365) 4 mL/min/1.73 sq m ESTIMATED GFR IS NOT ACCURATE CREATININE CLEARANCE IN PREDICTING GLOMERULAR FILTRATION RATE. ESTIMATED GFR IS NOT APPLICABLE FOR DIALYSIS PATIENTS. CBC W/PLT COUNT & AUTO [id number] 03:36:00* Test Item Value Reference Range Comments WHITE BLOOD CELL COUNT (BEAKER) (test locz=386) 9.1 K/ L 3.5-10.5 RED BLOOD CELL COUNT (BEAKER) (test eymf=476) 3.60 M/ L 3.93-5.22 HEMOGLOBIN (BEAKER) (test mpem=769) 10.0 GM/DL 11.2-15.7 HEMATOCRIT (BEAKER) (test tiri=196) 32.3 % 34.1-44.9 MEAN CORPUSCULAR VOLUME (BEAKER) (test aegv=529) 89.7 fL 79.4-94.8 MEAN CORPUSCULAR HEMOGLOBIN (BEAKER) (test rxvh=524) 27.8 pg 25.6-32.2 MEAN CORPUSCULAR HEMOGLOBIN CONC (BEAKER) (test lhna=965) 31.0 GM/DL 32.2-35.5 RED CELL DISTRIBUTION WIDTH (BEAKER) (test pedt=296) 16.8 % 11.7-14.4 PLATELET COUNT (BEAKER) (test bxgc=757) 145 K/CU MM 150-450 MEAN PLATELET VOLUME (BEAKER) (test nxqb=559) 11.1 fL 9.4-12.3 NUCLEATED RED BLOOD CELLS (BEAKER) (test ywcf=307) 0 /100 WBC 0-0 NEUTROPHILS RELATIVE PERCENT (BEAKER) (test sqxu=286) 72 % LYMPHOCYTES RELATIVE PERCENT (BEAKER) (test odbj=530) 21 % MONOCYTES RELATIVE PERCENT (BEAKER) (test yfpd=588) 5 % EOSINOPHILS RELATIVE PERCENT (BEAKER) (test gpab=300) 2 % BASOPHILS RELATIVE PERCENT (BEAKER) (test bwrd=972) 0 % NEUTROPHILS ABSOLUTE COUNT (BEAKER) (test hjux=711) 6.51 K/ L 1.56-6.13 LYMPHOCYTES ABSOLUTE COUNT (BEAKER) (test dbdz=570) 1.86 K/ L 1.18-3.74 MONOCYTES ABSOLUTE COUNT (BEAKER) (test cxdk=570) 0.46 K/ L 0.24-0.36 EOSINOPHILS ABSOLUTE COUNT (BEAKER) (test obaa=447) 0.19 K/ L 0.04-0.36 BASOPHILS ABSOLUTE COUNT (BEAKER) (test jooz=687) 0.03 K/ L 0.01-0.08 IMMATURE GRANULOCYTES-RELATIVE PERCENT (BEAKER) (test dxux=4288) 0 % 0-1 POCT-GLUCOSE [id number] 23:03:00* Test Item Value Reference Range Comments POC-GLUCOSE METER (BEAKER) (test saty=9087) 166 mg/dL 70-110 TESTED AT [place] [address] [id number] 19:50:00* Test Item Value Reference Range Comments ACTIVATED CLOTTING TIME (BEAKER) (test hiix=349) 136 sec TESTED AT [place] [address] [id number] 18:32:00* Test Item Value Reference Range Comments ACTIVATED CLOTTING TIME (BEAKER) (test bmcn=383) 153 sec TESTED AT [place] [address] POCT-GLUCOSE [id number] 17:09:00* Test Item Value Reference Range Comments POC-GLUCOSE METER (BEAKER) (test ilzi=1296) 159 mg/dL 70-110 TESTED AT [place] [address] [id number] 17:09:00* Test Item Value Reference Range Comments ACTIVATED CLOTTING TIME (BEAKER) (test rbvo=479) 175 sec TESTED AT [place] [address] [id number] 13:30:00* Test Item Value Reference Range Comments ACTIVATED CLOTTING TIME (BEAKER) (test cbfs=491) 274 sec TESTED AT [place] [address] POCT-GLUCOSE [id number] 09:39:00* Test Item Value Reference Range Comments POC-GLUCOSE METER (BEAKER) (test jick=6564) 193 mg/dL 70-110 TESTED AT [place] [address] HEPATITIS B SURFACE [id number] 09:01:00* Test Item Value Reference Range Comments HEPATITIS B SURFACE ANTIGEN (2) (BEAKER) (test sswz=3225) Nonreactive Nonreactive If hard stick can add to AM labs.COMPREHENSIVE METABOLIC [id number] 08:50:00* Test Item Value Reference Range Comments TOTAL PROTEIN (BEAKER) (test wqye=972) 7.4 gm/dL 6.0-8.3 ALBUMIN (BEAKER) (test jbxk=0857) 3.1 g/dL 3.5-5.0 ALKALINE PHOSPHATASE (BEAKER) (test vqrc=180) 111 U/L 40-150 BILIRUBIN TOTAL (BEAKER) (test trli=521) 0.4 mg/dL 0.2-1.2 SODIUM (BEAKER) (test hses=590) 140 meq/L 136-145 POTASSIUM (BEAKER) (test vbzu=589) 3.8 meq/L 3.5-5.1 CHLORIDE (BEAKER) (test cwwb=606) 102 meq/L 98-107 CO2 (BEAKER) (test uaev=740) 20 meq/L 22-29 BLOOD UREA NITROGEN (BEAKER) (test aadj=525) 50 mg/dL 7-21 CREATININE (BEAKER) (test rjmx=427) 9.27 mg/dL 0.57-1.25 GLUCOSE RANDOM (BEAKER) (test edir=751) 196 mg/dL 70-105 CALCIUM (BEAKER) (test tijj=621) 8.5 mg/dL 8.4-10.2 AST (SGOT) (BEAKER) (test hdpa=648) 12 U/L 5-34 ALT (SGPT) (BEAKER) (test khrm=197) 9 U/L 6-55 EGFR (BEAKER) (test zaww=3398) 4 mL/min/1.73 sq m ESTIMATED GFR IS NOT ACCURATE CREATININE CLEARANCE IN PREDICTING GLOMERULAR FILTRATION RATE. ESTIMATED GFR IS NOT APPLICABLE FOR DIALYSIS PATIENTS. B-TYPE NATRIURETIC FACTOR (BNP)2018-09-22 08:47:00* Test Item Value Reference Range Comments B-TYPE NATRIURETIC PEPTIDE (BEAKER) (test wosv=685) 1351 pg/mL 0-100 HEMOGLOBIN [id number] 08:11:00* Test Item Value Reference Range Comments HEMOGLOBIN A1C (BEAKER) (test cakb=033) 7.7 % 4.3-6.1 CBC W/PLT COUNT & AUTO [id number] 06:51:00* Test Item Value Reference Range Comments WHITE BLOOD CELL COUNT (BEAKER) (test kkpd=412) 9.3 K/ L 3.5-10.5 RED BLOOD CELL COUNT (BEAKER) (test veia=062) 3.82 M/ L 3.93-5.22 HEMOGLOBIN (BEAKER) (test lhgp=540) 10.4 GM/DL 11.2-15.7 HEMATOCRIT (BEAKER) (test jmjo=596) 33.7 % 34.1-44.9 MEAN CORPUSCULAR VOLUME (BEAKER) (test fohw=087) 88.2 fL 79.4-94.8 MEAN CORPUSCULAR HEMOGLOBIN (BEAKER) (test jfwx=121) 27.2 pg 25.6-32.2 MEAN CORPUSCULAR HEMOGLOBIN CONC (BEAKER) (test xpcv=123) 30.9 GM/DL 32.2-35.5 RED CELL DISTRIBUTION WIDTH (BEAKER) (test pmgd=343) 16.6 % 11.7-14.4 PLATELET COUNT (BEAKER) (test mcwq=134) 139 K/CU MM 150-450 MEAN PLATELET VOLUME (BEAKER) (test ghwp=749) 10.6 fL 9.4-12.3 NUCLEATED RED BLOOD CELLS (BEAKER) (test zmfm=155) 0 /100 WBC 0-0 NEUTROPHILS RELATIVE PERCENT (BEAKER) (test brwy=463) 72 % LYMPHOCYTES RELATIVE PERCENT (BEAKER) (test lspe=826) 20 % MONOCYTES RELATIVE PERCENT (BEAKER) (test bgud=023) 5 % EOSINOPHILS RELATIVE PERCENT (BEAKER) (test bqyx=324) 2 % BASOPHILS RELATIVE PERCENT (BEAKER) (test vibz=605) 0 % NEUTROPHILS ABSOLUTE COUNT (BEAKER) (test msxt=128) 6.65 K/ L 1.56-6.13 LYMPHOCYTES ABSOLUTE COUNT (BEAKER) (test fvmd=785) 1.86 K/ L 1.18-3.74 MONOCYTES ABSOLUTE COUNT (BEAKER) (test nvys=786) 0.48 K/ L 0.24-0.36 EOSINOPHILS ABSOLUTE COUNT (BEAKER) (test lrxd=419) 0.22 K/ L 0.04-0.36 BASOPHILS ABSOLUTE COUNT (BEAKER) (test dafq=707) 0.04 K/ L 0.01-0.08 IMMATURE GRANULOCYTES-RELATIVE PERCENT (BEAKER) (test cctx=1293) 1 % 0-1 BODY FLUID CELL COUNT WITH [id number] 02:22:00* Test Item Value Reference Range Comments APPEARANCE FLUID (BEAKER) (test hszr=390) Clear Clear COLOR FLUID (BEAKER) (test rrup=343) Colorless Colorless, Straw RBC FLUID (BEAKER) (test vjan=273) 48 /cu mm <=1 ADJUSTED WBC FLUID (BEAKER) (test sjto=1786) 58 /cu mm <=5 LINING CELLS (BEAKER) (test liur=2094) 0 /cu mm <=1 NEUTROPHILS FLUID (BEAKER) (test sqqv=1502) 20 % LYMPHS FLUID (BEAKER) (test yoae=630) 13 % MONO/MACROPHAGE FLUID (BEAKER) (test qvyv=238) 67 % EOSINOPHILS FLUID (BEAKER) (test ormv=465) 0 % BASO FLUID (BEAKER) (test tess=118) 0 % CONTAINER BODY FLUID (BEAKER) (test rbfs=5462) EDTA Tube POCT-GLUCOSE [id number] 20:51:00* Test Item Value Reference Range Comments POC-GLUCOSE METER (BEAKER) (test zvin=2438) 226 mg/dL 70-110 TESTED AT [facility] [address] [facility] [id number] BASIC METABOLIC [id number] 13:47:00* Test Item Value Reference Range Comments SODIUM (BEAKER) (test aqoy=942) 139 meq/L 136-145 POTASSIUM (BEAKER) (test hims=506) 4.0 meq/L 3.5-5.1 CHLORIDE (BEAKER) (test dzzp=643) 99 meq/L 98-107 CO2 (BEAKER) (test jxkt=407) 24 meq/L 22-29 BLOOD UREA NITROGEN (BEAKER) (test hjbf=568) 50 mg/dL 7-21 CREATININE (BEAKER) (test nuit=752) 9.29 mg/dL 0.57-1.25 GLUCOSE RANDOM (BEAKER) (test prbf=744) 333 mg/dL 70-105 CALCIUM (BEAKER) (test tcoo=330) 8.3 mg/dL 8.4-10.2 EGFR (BEAKER) (test cuwq=4475) 4 mL/min/1.73 sq m ESTIMATED GFR IS NOT ACCURATE CREATININE CLEARANCE IN PREDICTING GLOMERULAR FILTRATION RATE. ESTIMATED GFR IS NOT APPLICABLE FOR DIALYSIS PATIENTS. PROTHROMBIN TIME/[id number] 13:21:00* Test Item Value Reference Range Comments PROTIME (BEAKER) (test rikx=637) 15.0 seconds 11.7-14.7 INR (BEAKER) (test pfld=267) 1.2 <=5.9 RECOMMENDED COUMADIN/WARFARIN INR THERAPY RANGESSTANDARD DOSE: 2.0 - 3.0 Inclu abigail: PROPHYLAXIS for venous thrombosis, systemic embolization; TREATMENT for adriana ous thrombosis and/or pulmonary embolus.HIGH RISK: Target INR is 2.5-3.5 for pat ients with mechanical heart valves.[id number] 13:21:00* Test Item Value Reference Range Comments PARTIAL THROMBOPLASTIN TIME (BEAKER) (test becr=644) 34.5 seconds 22.5-36.0 CBC W/PLT COUNT & AUTO [id number] 13:14:00* Test Item Value Reference Range Comments WHITE BLOOD CELL COUNT (BEAKER) (test vbsk=389) 9.0 K/ L 3.5-10.5 RED BLOOD CELL COUNT (BEAKER) (test agdv=613) 3.84 M/ L 3.93-5.22 HEMOGLOBIN (BEAKER) (test geqn=922) 10.7 GM/DL 11.2-15.7 HEMATOCRIT (BEAKER) (test quri=271) 34.0 % 34.1-44.9 MEAN CORPUSCULAR VOLUME (BEAKER) (test wmcq=549) 88.5 fL 79.4-94.8 MEAN CORPUSCULAR HEMOGLOBIN (BEAKER) (test hkdx=923) 27.9 pg 25.6-32.2 MEAN CORPUSCULAR HEMOGLOBIN CONC (BEAKER) (test cuqy=718) 31.5 GM/DL 32.2-35.5 RED CELL DISTRIBUTION WIDTH (BEAKER) (test dzur=673) 16.6 % 11.7-14.4 PLATELET COUNT (BEAKER) (test nhoe=723) 148 K/CU MM 150-450 MEAN PLATELET VOLUME (BEAKER) (test vtpb=816) 10.7 fL 9.4-12.3 NUCLEATED RED BLOOD CELLS (BEAKER) (test ejsn=561) 0 /100 WBC 0-0 NEUTROPHILS RELATIVE PERCENT (BEAKER) (test bhht=853) 69 % LYMPHOCYTES RELATIVE PERCENT (BEAKER) (test aurt=933) 22 % MONOCYTES RELATIVE PERCENT (BEAKER) (test slvv=423) 6 % EOSINOPHILS RELATIVE PERCENT (BEAKER) (test otnv=063) 2 % BASOPHILS RELATIVE PERCENT (BEAKER) (test wyin=664) 0 % NEUTROPHILS ABSOLUTE COUNT (BEAKER) (test mybs=973) 6.26 K/ L 1.56-6.13 LYMPHOCYTES ABSOLUTE COUNT (BEAKER) (test zlqt=828) 1.96 K/ L 1.18-3.74 MONOCYTES ABSOLUTE COUNT (BEAKER) (test jckc=965) 0.51 K/ L 0.24-0.36 EOSINOPHILS ABSOLUTE COUNT (BEAKER) (test yftt=295) 0.20 K/ L 0.04-0.36 BASOPHILS ABSOLUTE COUNT (BEAKER) (test nihq=039) 0.03 K/ L 0.01-0.08 IMMATURE GRANULOCYTES-RELATIVE PERCENT (BEAKER) (test unes=8231) 1 % 0-1 AFB CULTURE + [id number] 09:23:00* Test Item Value Reference Range Comments CULTURE (BEAKER) (test sfrb=4631) No acid-fast bacilli isolated in 42 days AFB SMEAR (BEAKER) (test wint=684) No acid fast bacilli seen POCT-GLUCOSE [id number] 12:26:00* Test Item Value Reference Range Comments POC-GLUCOSE METER (BEAKER) (test reqg=7055) 186 mg/dL 70-110 TESTED AT [address] [address] POCT-GLUCOSE [id number] 08:14:00* Test Item Value Reference Range Comments POC-GLUCOSE METER (BEAKER) (test jttu=8666) 97 mg/dL 70-110 TESTED AT [address] [address] BASIC METABOLIC [id number] 06:00:00* Test Item Value Reference Range Comments SODIUM (BEAKER) (test keyf=315) 137 meq/L 136-145 POTASSIUM (BEAKER) (test ncup=075) 4.4 meq/L 3.5-5.1 CHLORIDE (BEAKER) (test jxks=062) 102 meq/L 98-107 CO2 (BEAKER) (test bepf=440) 25 meq/L 22-29 BLOOD UREA NITROGEN (BEAKER) (test rojr=282) 25 mg/dL 7-21 CREATININE (BEAKER) (test ijih=884) 3.92 mg/dL 0.57-1.25 GLUCOSE RANDOM (BEAKER) (test qoai=781) 112 mg/dL 70-105 CALCIUM (BEAKER) (test edhh=048) 9.3 mg/dL 8.4-10.2 EGFR (BEAKER) (test jbpn=7515) 11 mL/min/1.73 sq m ESTIMATED GFR IS NOT ACCURATE CREATININE CLEARANCE IN PREDICTING GLOMERULAR FILTRATION RATE. ESTIMATED GFR IS NOT APPLICABLE FOR DIALYSIS PATIENTS. CBC W/PLT COUNT & AUTO [id number] 04:38:00* Test Item Value Reference Range Comments WHITE BLOOD CELL COUNT (BEAKER) (test kuhr=289) 7.2 K/ L 3.5-10.5 RED BLOOD CELL COUNT (BEAKER) (test nlyd=875) 3.46 M/ L 3.93-5.22 HEMOGLOBIN (BEAKER) (test lecd=604) 9.9 GM/DL 11.2-15.7 HEMATOCRIT (BEAKER) (test lkof=681) 32.1 % 34.1-44.9 MEAN CORPUSCULAR VOLUME (BEAKER) (test zkks=212) 92.8 fL 79.4-94.8 MEAN CORPUSCULAR HEMOGLOBIN (BEAKER) (test ixzk=916) 28.6 pg 25.6-32.2 MEAN CORPUSCULAR HEMOGLOBIN CONC (BEAKER) (test xngc=799) 30.8 GM/DL 32.2-35.5 RED CELL DISTRIBUTION WIDTH (BEAKER) (test nspt=483) 14.5 % 11.7-14.4 PLATELET COUNT (BEAKER) (test dftr=598) 213 K/CU MM 150-450 MEAN PLATELET VOLUME (BEAKER) (test ilfz=829) 10.3 fL 9.4-12.3 NUCLEATED RED BLOOD CELLS (BEAKER) (test nfux=508) 0 /100 WBC 0-0 NEUTROPHILS RELATIVE PERCENT (BEAKER) (test syzn=359) 63 % LYMPHOCYTES RELATIVE PERCENT (BEAKER) (test mwon=385) 24 % MONOCYTES RELATIVE PERCENT (BEAKER) (test wacw=844) 9 % EOSINOPHILS RELATIVE PERCENT (BEAKER) (test xqnw=130) 4 % BASOPHILS RELATIVE PERCENT (BEAKER) (test uoku=380) 1 % NEUTROPHILS ABSOLUTE COUNT (BEAKER) (test ydal=688) 4.55 K/ L 1.56-6.13 LYMPHOCYTES ABSOLUTE COUNT (BEAKER) (test upwo=824) 1.71 K/ L 1.18-3.74 MONOCYTES ABSOLUTE COUNT (BEAKER) (test itwx=670) 0.64 K/ L 0.24-0.36 EOSINOPHILS ABSOLUTE COUNT (BEAKER) (test mxjz=293) 0.25 K/ L 0.04-0.36 BASOPHILS ABSOLUTE COUNT (BEAKER) (test cqsn=547) 0.04 K/ L 0.01-0.08 IMMATURE GRANULOCYTES-RELATIVE PERCENT (BEAKER) (test mlst=6514) 1 % 0-1 POCT-GLUCOSE [id number] 21:11:00* Test Item Value Reference Range Comments POC-GLUCOSE METER (BEAKER) (test xbfz=8618) 238 mg/dL 70-110 TESTED AT [place] [id number] POCT-GLUCOSE [id number] 17:19:00* Test Item Value Reference Range Comments POC-GLUCOSE METER (BEAKER) (test bpfh=6447) 209 mg/dL 70-110 TESTED AT [address] [address] POCT-GLUCOSE [id number] 12:59:00* Test Item Value Reference Range Comments POC-GLUCOSE METER (BEAKER) (test uyhz=5875) 163 mg/dL 70-110 TESTED AT [address] [address] POCT-GLUCOSE [id number] 09:21:00* Test Item Value Reference Range Comments POC-GLUCOSE METER (BEAKER) (test hnzj=1715) 78 mg/dL 70-110 TESTED AT [place] [id number] BASIC METABOLIC [id number] 05:55:00* Test Item Value Reference Range Comments SODIUM (BEAKER) (test unut=694) 140 meq/L 136-145 POTASSIUM (BEAKER) (test stoq=204) 4.8 meq/L 3.5-5.1 CHLORIDE (BEAKER) (test mxra=598) 103 meq/L 98-107 CO2 (BEAKER) (test fern=506) 28 meq/L 22-29 BLOOD UREA NITROGEN (BEAKER) (test zwwo=781) 17 mg/dL 7-21 CREATININE (BEAKER) (test rmfd=907) 3.17 mg/dL 0.57-1.25 GLUCOSE RANDOM (BEAKER) (test tlov=422) 102 mg/dL 70-105 CALCIUM (BEAKER) (test lnsd=507) 9.3 mg/dL 8.4-10.2 EGFR (BEAKER) (test pbcg=2801) 14 mL/min/1.73 sq m ESTIMATED GFR IS NOT ACCURATE CREATININE CLEARANCE IN PREDICTING GLOMERULAR FILTRATION RATE. ESTIMATED GFR IS NOT APPLICABLE FOR DIALYSIS PATIENTS. CBC W/PLT COUNT & AUTO [id number] 05:22:00* Test Item Value Reference Range Comments WHITE BLOOD CELL COUNT (BEAKER) (test hdbv=754) 6.7 K/ L 3.5-10.5 RED BLOOD CELL COUNT (BEAKER) (test dwuz=631) 3.51 M/ L 3.93-5.22 HEMOGLOBIN (BEAKER) (test fhcq=802) 10.0 GM/DL 11.2-15.7 HEMATOCRIT (BEAKER) (test bvza=033) 32.7 % 34.1-44.9 MEAN CORPUSCULAR VOLUME (BEAKER) (test kwos=977) 93.2 fL 79.4-94.8 MEAN CORPUSCULAR HEMOGLOBIN (BEAKER) (test ndgo=187) 28.5 pg 25.6-32.2 MEAN CORPUSCULAR HEMOGLOBIN CONC (BEAKER) (test thxf=038) 30.6 GM/DL 32.2-35.5 RED CELL DISTRIBUTION WIDTH (BEAKER) (test shvl=875) 14.4 % 11.7-14.4 PLATELET COUNT (BEAKER) (test sgrl=323) 226 K/CU MM 150-450 MEAN PLATELET VOLUME (BEAKER) (test cuwa=355) 10.5 fL 9.4-12.3 NUCLEATED RED BLOOD CELLS (BEAKER) (test ghca=415) 0 /100 WBC 0-0 NEUTROPHILS RELATIVE PERCENT (BEAKER) (test urju=165) 58 % LYMPHOCYTES RELATIVE PERCENT (BEAKER) (test akae=823) 27 % MONOCYTES RELATIVE PERCENT (BEAKER) (test ozqn=706) 10 % EOSINOPHILS RELATIVE PERCENT (BEAKER) (test oyof=883) 3 % BASOPHILS RELATIVE PERCENT (BEAKER) (test isph=479) 1 % NEUTROPHILS ABSOLUTE COUNT (BEAKER) (test gssi=837) 3.90 K/ L 1.56-6.13 LYMPHOCYTES ABSOLUTE COUNT (BEAKER) (test zmot=039) 1.83 K/ L 1.18-3.74 MONOCYTES ABSOLUTE COUNT (BEAKER) (test gnlg=365) 0.67 K/ L 0.24-0.36 EOSINOPHILS ABSOLUTE COUNT (BEAKER) (test hyct=990) 0.22 K/ L 0.04-0.36 BASOPHILS ABSOLUTE COUNT (BEAKER) (test plad=984) 0.04 K/ L 0.01-0.08 IMMATURE GRANULOCYTES-RELATIVE PERCENT (BEAKER) (test iqwb=0841) 0 % 0-1 POCT-GLUCOSE [id number] 21:05:00* Test Item Value Reference Range Comments POC-GLUCOSE METER (BEAKER) (test pasj=8487) 241 mg/dL 70-110 TESTED AT [address] [address] POCT-GLUCOSE [id number] 17:32:00* Test Item Value Reference Range Comments POC-GLUCOSE METER (BEAKER) (test egkx=9166) 177 mg/dL 70-110 TESTED AT [address] [address] POCT-GLUCOSE [id number] 12:14:00* Test Item Value Reference Range Comments POC-GLUCOSE METER (BEAKER) (test egly=7015) 140 mg/dL 70-110 TESTED AT [address] [address] [id number] 12:08:00* Test Item Value Reference Range Comments PHOSPHORUS (BEAKER) (test okyb=480) 3.5 mg/dL 2.3-4.7 Routine. If BMP has been done earlier on day of HD, but there is no phosphorus, call lab to add phosphorus, and do it downtime from previous sample sent.Draw at start of HD on day of HD if labs not yet sent for that day.For use at start of hemodialysis treatment during day of HD. Floor nurse should not touch this or vic pre dialysis treatment or else the dialysis nurse will not be able to see th is order.[id number] 12:08:00* Test Item Value Reference Range Comments MAGNESIUM (BEAKER) (test opnv=820) 2.0 mg/dL 1.6-2.6 Routine. If BMP has been done earlier on day of HD, but there is no phosphorus, call lab to add phosphorus, and do it downtime from previous sample sent.Draw at start of HD on day of HD if labs not yet sent for that day.For use at start of hemodialysis treatment during day of HD. Floor nurse should not touch this or vic pre dialysis treatment or else the dialysis nurse will not be able to see th is order.POCT-GLUCOSE [id number] 09:05:00* Test Item Value Reference Range Comments POC-GLUCOSE METER (BEAKER) (test qplz=7338) 100 mg/dL 70-110 TESTED AT [facility] [address] [facility] [address] BASIC METABOLIC [id number] 05:53:00* Test Item Value Reference Range Comments SODIUM (BEAKER) (test ncga=289) 136 meq/L 136-145 POTASSIUM (BEAKER) (test irax=704) 4.1 meq/L 3.5-5.1 CHLORIDE (BEAKER) (test adjk=489) 100 meq/L 98-107 CO2 (BEAKER) (test bvcr=643) 24 meq/L 22-29 BLOOD UREA NITROGEN (BEAKER) (test zygs=667) 25 mg/dL 7-21 CREATININE (BEAKER) (test hbij=613) 3.52 mg/dL 0.57-1.25 GLUCOSE RANDOM (BEAKER) (test uqih=678) 46 mg/dL 70-105 CALCIUM (BEAKER) (test yeyv=228) 8.8 mg/dL 8.4-10.2 EGFR (BEAKER) (test apyj=6491) 13 mL/min/1.73 sq m ESTIMATED GFR IS NOT ACCURATE CREATININE CLEARANCE IN PREDICTING GLOMERULAR FILTRATION RATE. ESTIMATED GFR IS NOT APPLICABLE FOR DIALYSIS PATIENTS. CBC W/PLT COUNT & AUTO [id number] 05:13:00* Test Item Value Reference Range Comments WHITE BLOOD CELL COUNT (BEAKER) (test jzim=723) 6.9 K/ L 3.5-10.5 RED BLOOD CELL COUNT (BEAKER) (test zmqv=636) 3.27 M/ L 3.93-5.22 HEMOGLOBIN (BEAKER) (test vsoe=588) 9.4 GM/DL 11.2-15.7 HEMATOCRIT (BEAKER) (test zvfl=509) 29.9 % 34.1-44.9 MEAN CORPUSCULAR VOLUME (BEAKER) (test iyra=458) 91.4 fL 79.4-94.8 MEAN CORPUSCULAR HEMOGLOBIN (BEAKER) (test ozea=763) 28.7 pg 25.6-32.2 MEAN CORPUSCULAR HEMOGLOBIN CONC (BEAKER) (test axrx=600) 31.4 GM/DL 32.2-35.5 RED CELL DISTRIBUTION WIDTH (BEAKER) (test owyw=010) 14.2 % 11.7-14.4 PLATELET COUNT (BEAKER) (test ucsw=564) 208 K/CU MM 150-450 MEAN PLATELET VOLUME (BEAKER) (test zapr=213) 10.8 fL 9.4-12.3 NUCLEATED RED BLOOD CELLS (BEAKER) (test gnit=626) 0 /100 WBC 0-0 NEUTROPHILS RELATIVE PERCENT (BEAKER) (test tvmx=692) 61 % LYMPHOCYTES RELATIVE PERCENT (BEAKER) (test hhzi=372) 25 % MONOCYTES RELATIVE PERCENT (BEAKER) (test fvtd=515) 9 % EOSINOPHILS RELATIVE PERCENT (BEAKER) (test npko=125) 4 % BASOPHILS RELATIVE PERCENT (BEAKER) (test sizi=770) 1 % NEUTROPHILS ABSOLUTE COUNT (BEAKER) (test tkml=716) 4.19 K/ L 1.56-6.13 LYMPHOCYTES ABSOLUTE COUNT (BEAKER) (test zqmk=538) 1.74 K/ L 1.18-3.74 MONOCYTES ABSOLUTE COUNT (BEAKER) (test mgyf=546) 0.62 K/ L 0.24-0.36 EOSINOPHILS ABSOLUTE COUNT (BEAKER) (test qvvb=881) 0.25 K/ L 0.04-0.36 BASOPHILS ABSOLUTE COUNT (BEAKER) (test ssyj=664) 0.04 K/ L 0.01-0.08 IMMATURE GRANULOCYTES-RELATIVE PERCENT (BEAKER) (test jcav=5563) 1 % 0-1 POCT-GLUCOSE [id number] 23:41:00* Test Item Value Reference Range Comments POC-GLUCOSE METER (BEAKER) (test yrds=8566) 163 mg/dL 70-110 TESTED AT [facility] [address] [facility] [address] POCT-GLUCOSE [id number] 17:38:00* Test Item Value Reference Range Comments POC-GLUCOSE METER (BEAKER) (test vfix=7579) 175 mg/dL 70-110 TESTED AT [facility] [address] [facility] [address] POCT-GLUCOSE [id number] 12:43:00* Test Item Value Reference Range Comments POC-GLUCOSE METER (BEAKER) (test pmpy=6135) 223 mg/dL 70-110 TESTED AT [place] [id number] [facility] [address] POCT-GLUCOSE [id number] 09:49:00* Test Item Value Reference Range Comments POC-GLUCOSE METER (BEAKER) (test jmoe=0583) 99 mg/dL 70-110 TESTED AT [place] [id number] [facility] [address] POCT-GLUCOSE [id number] 09:00:00* Test Item Value Reference Range Comments POC-GLUCOSE METER (BEAKER) (test lfkh=5685) 69 mg/dL 70-110 Notified ENMA CHANG/TESTED AT [address] [address] BASIC METABOLIC [id number] 07:16:00* Test Item Value Reference Range Comments SODIUM (BEAKER) (test fnkh=134) 138 meq/L 136-145 POTASSIUM (BEAKER) (test reti=289) 4.1 meq/L 3.5-5.1 CHLORIDE (BEAKER) (test ezdr=894) 98 meq/L 98-107 CO2 (BEAKER) (test iskc=170) 29 meq/L 22-29 BLOOD UREA NITROGEN (BEAKER) (test lzhe=902) 14 mg/dL 7-21 CREATININE (BEAKER) (test kbgl=041) 2.44 mg/dL 0.57-1.25 GLUCOSE RANDOM (BEAKER) (test jwbz=097) 71 mg/dL 70-105 CALCIUM (BEAKER) (test qxwg=698) 9.0 mg/dL 8.4-10.2 EGFR (BEAKER) (test jlao=7844) 19 mL/min/1.73 sq m ESTIMATED GFR IS NOT ACCURATE CREATININE CLEARANCE IN PREDICTING GLOMERULAR FILTRATION RATE. ESTIMATED GFR IS NOT APPLICABLE FOR DIALYSIS PATIENTS. URIC [id number] 06:54:00* Test Item Value Reference Range Comments URIC ACID (BEAKER) (test eckj=734) 3.1 mg/dL 2.6-7.2 CBC W/PLT COUNT & AUTO [id number] 06:17:00* Test Item Value Reference Range Comments WHITE BLOOD CELL COUNT (BEAKER) (test aens=882) 6.5 K/ L 3.5-10.5 RED BLOOD CELL COUNT (BEAKER) (test sanw=715) 3.38 M/ L 3.93-5.22 HEMOGLOBIN (BEAKER) (test cjgc=388) 9.6 GM/DL 11.2-15.7 HEMATOCRIT (BEAKER) (test vstk=871) 31.5 % 34.1-44.9 MEAN CORPUSCULAR VOLUME (BEAKER) (test yntt=612) 93.2 fL 79.4-94.8 MEAN CORPUSCULAR HEMOGLOBIN (BEAKER) (test icuh=872) 28.4 pg 25.6-32.2 MEAN CORPUSCULAR HEMOGLOBIN CONC (BEAKER) (test wfas=294) 30.5 GM/DL 32.2-35.5 RED CELL DISTRIBUTION WIDTH (BEAKER) (test aldr=799) 14.3 % 11.7-14.4 PLATELET COUNT (BEAKER) (test ygah=707) 182 K/CU MM 150-450 MEAN PLATELET VOLUME (BEAKER) (test qnyo=960) 10.9 fL 9.4-12.3 NUCLEATED RED BLOOD CELLS (BEAKER) (test penu=526) 0 /100 WBC 0-0 NEUTROPHILS RELATIVE PERCENT (BEAKER) (test tqcr=764) 66 % LYMPHOCYTES RELATIVE PERCENT (BEAKER) (test yrzy=709) 22 % MONOCYTES RELATIVE PERCENT (BEAKER) (test rmoa=605) 9 % EOSINOPHILS RELATIVE PERCENT (BEAKER) (test jmga=628) 3 % BASOPHILS RELATIVE PERCENT (BEAKER) (test tlbd=197) 1 % NEUTROPHILS ABSOLUTE COUNT (BEAKER) (test ives=462) 4.27 K/ L 1.56-6.13 LYMPHOCYTES ABSOLUTE COUNT (BEAKER) (test daze=532) 1.42 K/ L 1.18-3.74 MONOCYTES ABSOLUTE COUNT (BEAKER) (test ufjz=123) 0.58 K/ L 0.24-0.36 EOSINOPHILS ABSOLUTE COUNT (BEAKER) (test scvy=442) 0.17 K/ L 0.04-0.36 BASOPHILS ABSOLUTE COUNT (BEAKER) (test ffpk=616) 0.03 K/ L 0.01-0.08 IMMATURE GRANULOCYTES-RELATIVE PERCENT (DELILAH) (test lfff=6634) 1 % 0-1 POCT-GLUCOSE [id number] 02:30:00* Test Item Value Reference Range Comments POC-GLUCOSE METER (DELILAH) (test sbdg=5533) 112 mg/dL 70-110 TESTED AT [facility] [address] [facility] [address] POCT-GLUCOSE [id number] 18:46:00* Test Item Value Reference Range Comments POC-GLUCOSE METER (DELILAH) (test itfz=9324) 84 mg/dL 70-110 TESTED AT [facility] [address] [facility] [address] [id number] 16:23:00* Test Item Value Reference Range Comments PHOSPHORUS (DELILAH) (test axhz=793) 2.5 mg/dL 2.3-4.7 Draw at start of HD on day of HD if not yet sent for that day.For use at start o f hemodialysis treatment during day of HD. Floor nurse should not touch this order pre dialysis treatment or else the dialysis nurse will not be able to see this order.If BMP has been done earlier on day of HD, but there is no magnesium, call lab to add magnesium and do it downtime.Draw at start of HD on day of HD if labs not yet sent for that day.For use at start of hemodialysis treatment dur ing day of HD. Floor nurse should not touch this order pre dialysis treatment or else the dialysis nurse will not be able to see this order.Routine. If BMP kraft s been done earlier on day of HD, but there is no phosphorus, call lab to add ph osphorus, and do it downtime from previous sample sent.Draw at start of HD on da y of HD if labs not yet sent for that day.For use at start of hemodialysis uyen tment during day of HD. Floor nurse should not touch this order pre dialysis t reatment or else the dialysis nurse will not be able to see this order.MAGNESIUM 2017-04-30 16:23:00* Test Item Value Reference Range Comments MAGNESIUM (DELILAH) (test tnsl=845) 1.8 mg/dL 1.6-2.6 Draw at start of HD on day of HD if not yet sent for that day.For use at start o f hemodialysis treatment during day of HD. Floor nurse should not touch this order pre dialysis treatment or else the dialysis nurse will not be able to see this order.If BMP has been done earlier on day of HD, but there is no magnesium, call lab to add magnesium and do it downtime.Draw at start of HD on day of HD if labs not yet sent for that day.For use at start of hemodialysis treatment dur ing day of HD. Floor nurse should not touch this order pre dialysis treatment or else the dialysis nurse will not be able to see this order.Routine. If BMP kraft s been done earlier on day of HD, but there is no phosphorus, call lab to add ph osphorus, and do it downtime from previous sample sent.Draw at start of HD on da y of HD if labs not yet sent for that day.For use at start of hemodialysis uyen tment during day of HD. Floor nurse should not touch this order pre dialysis t reatment or else the dialysis nurse will not be able to see this order.BASIC METABOLIC [id number] 16:23:00* Test Item Value Reference Range Comments SODIUM (BEAKER) (test knmy=487) 135 meq/L 136-145 POTASSIUM (BEAKER) (test scma=942) 3.4 meq/L 3.5-5.1 CHLORIDE (BEAKER) (test mrkv=786) 95 meq/L 98-107 CO2 (BEAKER) (test dzxk=658) 32 meq/L 22-29 BLOOD UREA NITROGEN (BEAKER) (test crje=541) 19 mg/dL 7-21 CREATININE (BEAKER) (test ovtz=332) 2.32 mg/dL 0.57-1.25 GLUCOSE RANDOM (BEAKER) (test ofhj=951) 95 mg/dL 70-105 CALCIUM (BEAKER) (test rkma=077) 8.1 mg/dL 8.4-10.2 EGFR (BEAKER) (test uhwi=0484) 21 mL/min/1.73 sq m ESTIMATED GFR IS NOT ACCURATE CREATININE CLEARANCE IN PREDICTING GLOMERULAR FILTRATION RATE. ESTIMATED GFR IS NOT APPLICABLE FOR DIALYSIS PATIENTS. Draw at start of HD on day of HD if not yet sent for that day.For use at start o f hemodialysis treatment during day of HD. Floor nurse should not touch this order pre dialysis treatment or else the dialysis nurse will not be able to see this order.If BMP has been done earlier on day of HD, but there is no magnesium, call lab to add magnesium and do it downtime.Draw at start of HD on day of HD if labs not yet sent for that day.For use at start of hemodialysis treatment dur ing day of HD. Floor nurse should not touch this order pre dialysis treatment or else the dialysis nurse will not be able to see this order.Routine. If BMP kraft s been done earlier on day of HD, but there is no phosphorus, call lab to add ph osphorus, and do it downtime from previous sample sent.Draw at start of HD on da y of HD if labs not yet sent for that day.For use at start of hemodialysis uyen tment during day of HD. Floor nurse should not touch this order pre dialysis t reatment or else the dialysis nurse will not be able to see this order.POCT- GLUCOSE [id number] 12:06:00* Test Item Value Reference Range Comments POC-GLUCOSE METER (BEAKER) (test imbo=8329) 166 mg/dL 70-110 TESTED AT [place] [address] [id number] 09:57:00* Test Item Value Reference Range Comments MAGNESIUM (BEAKER) (test gxou=681) 1.8 mg/dL 1.6-2.6 Call lab to add to blood sent this AM. Downtime please. Call me if result is abn ormal. Do not stick patient again now just for this. Bijan Adhikari MD . Thank you.POCT-GLUCOSE [id number] 08:34:00* Test Item Value Reference Range Comments POC-GLUCOSE METER (BEAKER) (test weyh=6913) 143 mg/dL 70-110 TESTED AT [place] [id number] FUNGUS CULTURE + [id number] 07:38:00* Test Item Value Reference Range Comments CULTURE (BEAKER) (test cisd=9870) No fungus isolated in 28 days FUNGUS SMEAR (BEAKER) (test fowm=8321) No fungi seen POCT-GLUCOSE [id number] 06:51:00* Test Item Value Reference Range Comments POC-GLUCOSE METER (BEAKER) (test rpgc=5861) 78 mg/dL 70-110 TESTED AT [address] [address] BASIC METABOLIC [id number] 06:27:00* Test Item Value Reference Range Comments SODIUM (BEAKER) (test ayof=787) 138 meq/L 136-145 POTASSIUM (BEAKER) (test wzfl=359) 3.7 meq/L 3.5-5.1 CHLORIDE (BEAKER) (test qqmi=929) 97 meq/L 98-107 CO2 (BEAKER) (test ftdq=919) 30 meq/L 22-29 BLOOD UREA NITROGEN (BEAKER) (test qkkz=567) 22 mg/dL 7-21 CREATININE (BEAKER) (test htkb=570) 3.19 mg/dL 0.57-1.25 GLUCOSE RANDOM (BEAKER) (test smth=907) 68 mg/dL 70-105 CALCIUM (BEAKER) (test kdwl=649) 8.9 mg/dL 8.4-10.2 EGFR (BEAKER) (test bsxb=7985) 14 mL/min/1.73 sq m ESTIMATED GFR IS NOT ACCURATE CREATININE CLEARANCE IN PREDICTING GLOMERULAR FILTRATION RATE. ESTIMATED GFR IS NOT APPLICABLE FOR DIALYSIS PATIENTS. [id number] 05:43:00* Test Item Value Reference Range Comments D-DIMER QUANTITATIVE (BEAKER) (test dzdq=090) 2.24 MG/L FEU <0.50 Intended Use: The D-Dimer Assay can be used to aid in the diagnosis of Deep Vein Thrombosis (DVT) and Pulmonary Embolism Disease (PED).In patients with low pre- test probability, various studies concerning STA Liatest D-dimer test have repor salina that with a cutoff value of 0.50 MG/L FEU, the Negative Predictive Value (STEM CUTTER V) regarding the exclusion of thrombosis is within 95-100% range.CBC W/PLT COUNT & AUTO [id number] 05:37:00* Test Item Value Reference Range Comments WHITE BLOOD CELL COUNT (BEAKER) (test nmhz=572) 8.2 K/ L 3.5-10.5 RED BLOOD CELL COUNT (BEAKER) (test ctei=278) 3.34 M/ L 3.93-5.22 HEMOGLOBIN (BEAKER) (test yatk=481) 9.4 GM/DL 11.2-15.7 HEMATOCRIT (BEAKER) (test qkvt=709) 30.9 % 34.1-44.9 MEAN CORPUSCULAR VOLUME (BEAKER) (test zzen=303) 92.5 fL 79.4-94.8 MEAN CORPUSCULAR HEMOGLOBIN (BEAKER) (test yoiy=730) 28.1 pg 25.6-32.2 MEAN CORPUSCULAR HEMOGLOBIN CONC (BEAKER) (test tjga=074) 30.4 GM/DL 32.2-35.5 RED CELL DISTRIBUTION WIDTH (BEAKER) (test jvwq=439) 14.1 % 11.7-14.4 PLATELET COUNT (BEAKER) (test uihn=064) 172 K/CU MM 150-450 MEAN PLATELET VOLUME (BEAKER) (test lpsw=877) 11.2 fL 9.4-12.3 NUCLEATED RED BLOOD CELLS (BEAKER) (test ulys=130) 0 /100 WBC 0-0 NEUTROPHILS RELATIVE PERCENT (BEAKER) (test yazc=863) 67 % LYMPHOCYTES RELATIVE PERCENT (BEAKER) (test uafo=167) 22 % MONOCYTES RELATIVE PERCENT (BEAKER) (test hcgi=197) 8 % EOSINOPHILS RELATIVE PERCENT (BEAKER) (test cswx=488) 1 % BASOPHILS RELATIVE PERCENT (BEAKER) (test blwt=820) 0 % NEUTROPHILS ABSOLUTE COUNT (BEAKER) (test zyny=161) 5.48 K/ L 1.56-6.13 LYMPHOCYTES ABSOLUTE COUNT (BEAKER) (test atvj=239) 1.83 K/ L 1.18-3.74 MONOCYTES ABSOLUTE COUNT (BEAKER) (test odgm=436) 0.68 K/ L 0.24-0.36 EOSINOPHILS ABSOLUTE COUNT (BEAKER) (test rqkf=822) 0.09 K/ L 0.04-0.36 BASOPHILS ABSOLUTE COUNT (BEAKER) (test zwqq=884) 0.03 K/ L 0.01-0.08 IMMATURE GRANULOCYTES-RELATIVE PERCENT (BEAKER) (test ogcd=6536) 1 % 0-1 POCT-GLUCOSE [id number] 22:09:00* Test Item Value Reference Range Comments POC-GLUCOSE METER (BEAKER) (test kmnd=6429) 199 mg/dL 70-110 TESTED AT [facility] [address] [facility] [address] POCT-GLUCOSE [id number] 18:12:00* Test Item Value Reference Range Comments POC-GLUCOSE METER (BEAKER) (test arvp=5323) 117 mg/dL 70-110 TESTED AT [address] [address] POCT-GLUCOSE [id number] 13:19:00* Test Item Value Reference Range Comments POC-GLUCOSE METER (BEAKER) (test bznf=5707) 162 mg/dL 70-110 TESTED AT [address] [address] POCT-GLUCOSE [id number] 08:29:00* Test Item Value Reference Range Comments POC-GLUCOSE METER (BEAKER) (test nsah=5818) 113 mg/dL 70-110 TESTED AT [address] [address] POCT-GLUCOSE [id number] 21:05:00* Test Item Value Reference Range Comments POC-GLUCOSE METER (BEAKER) (test hyut=4448) 188 mg/dL 70-110 TESTED AT [address] [address] POCT-GLUCOSE [id number] 16:36:00* Test Item Value Reference Range Comments POC-GLUCOSE METER (BEAKER) (test xede=6863) 85 mg/dL 70-110 TESTED AT [address] [address] CBC W/PLT COUNT & AUTO [id number] 14:08:00* Test Item Value Reference Range Comments WHITE BLOOD CELL COUNT (BEAKER) (test szuq=728) 7.4 K/ L 3.5-10.5 RED BLOOD CELL COUNT (BEAKER) (test fenp=099) 2.86 M/ L 3.93-5.22 HEMOGLOBIN (BEAKER) (test lcnl=105) 8.3 GM/DL 11.2-15.7 HEMATOCRIT (BEAKER) (test nmds=559) 26.5 % 34.1-44.9 MEAN CORPUSCULAR VOLUME (BEAKER) (test eovg=945) 92.7 fL 79.4-94.8 MEAN CORPUSCULAR HEMOGLOBIN (BEAKER) (test vhox=875) 29.0 pg 25.6-32.2 MEAN CORPUSCULAR HEMOGLOBIN CONC (BEAKER) (test ovxq=725) 31.3 GM/DL 32.2-35.5 RED CELL DISTRIBUTION WIDTH (BEAKER) (test ymze=773) 13.9 % 11.7-14.4 PLATELET COUNT (BEAKER) (test ndad=079) 132 K/CU MM 150-450 MEAN PLATELET VOLUME (BEAKER) (test iczu=627) 11.1 fL 9.4-12.3 NUCLEATED RED BLOOD CELLS (BEAKER) (test wxwj=619) 0 /100 WBC 0-0 NEUTROPHILS RELATIVE PERCENT (BEAKER) (test kaum=671) 69 % LYMPHOCYTES RELATIVE PERCENT (BEAKER) (test sqoe=058) 23 % MONOCYTES RELATIVE PERCENT (BEAKER) (test ewpb=894) 7 % EOSINOPHILS RELATIVE PERCENT (BEAKER) (test mose=442) 1 % BASOPHILS RELATIVE PERCENT (BEAKER) (test qrlc=990) 0 % NEUTROPHILS ABSOLUTE COUNT (BEAKER) (test zbzx=661) 5.08 K/ L 1.56-6.13 LYMPHOCYTES ABSOLUTE COUNT (BEAKER) (test snen=175) 1.69 K/ L 1.18-3.74 MONOCYTES ABSOLUTE COUNT (BEAKER) (test phqf=953) 0.49 K/ L 0.24-0.36 EOSINOPHILS ABSOLUTE COUNT (BEAKER) (test uops=537) 0.09 K/ L 0.04-0.36 BASOPHILS ABSOLUTE COUNT (BEAKER) (test zqnz=100) 0.02 K/ L 0.01-0.08 IMMATURE GRANULOCYTES-RELATIVE PERCENT (BEAKER) (test rqlm=2676) 0 % 0-1 (MANUAL DIFFERENTIAL)2017-04-28 14:08:00* Test Item Value Reference Range Comments TOTAL COUNTED (BEAKER) (test lefl=2110) WBC MORPHOLOGY (BEAKER) (test fhvh=765) Normal PLT MORPHOLOGY (BEAKER) (test ytmr=538) Normal RBC MORPHOLOGY (BEAKER) (test kyyh=921) Normal BASIC METABOLIC [id number] 13:27:00* Test Item Value Reference Range Comments SODIUM (BEAKER) (test alot=683) 139 meq/L 136-145 POTASSIUM (BEAKER) (test cdbx=155) 3.2 meq/L 3.5-5.1 CHLORIDE (BEAKER) (test ksrs=671) 98 meq/L 98-107 CO2 (BEAKER) (test pmuy=997) 31 meq/L 22-29 BLOOD UREA NITROGEN (BEAKER) (test vziq=741) 16 mg/dL 7-21 CREATININE (BEAKER) (test iasp=464) 2.08 mg/dL 0.57-1.25 GLUCOSE RANDOM (BEAKER) (test xgti=808) 132 mg/dL 70-105 CALCIUM (DELILAH) (test epgl=509) 8.3 mg/dL 8.4-10.2 EGFR (DELILAH) (test ezfe=5614) 23 mL/min/1.73 sq m ESTIMATED GFR IS NOT ACCURATE CREATININE CLEARANCE IN PREDICTING GLOMERULAR FILTRATION RATE. ESTIMATED GFR IS NOT APPLICABLE FOR DIALYSIS PATIENTS. Draw at start of HD on day of HD if not yet sent for that day.For use at start o f hemodialysis treatment during day of HD. Floor nurse should not touch this order pre dialysis treatment or else the dialysis nurse will not be able to see this order.If BMP has been done earlier on day of HD, but there is no magnesium, call lab to add magnesium and do it downtime.Draw at start of HD on day of HD if labs not yet sent for that day.For use at start of hemodialysis treatment dur ing day of HD. Floor nurse should not touch this order pre dialysis treatment or else the dialysis nurse will not be able to see this order.Routine. If BMP kraft s been done earlier on day of HD, but there is no phosphorus, call lab to add ph osphorus, and do it downtime from previous sample sent.Draw at start of HD on da y of HD if labs not yet sent for that day.For use at start of hemodialysis uyen tment during day of HD. Floor nurse should not touch this order pre dialysis t reatment or else the dialysis nurse will not be able to see this order. [id number] 13:23:00* Test Item Value Reference Range Comments PHOSPHORUS (DELILAH) (test qbjv=303) 2.5 mg/dL 2.3-4.7 Draw at start of HD on day of HD if not yet sent for that day.For use at start o f hemodialysis treatment during day of HD. Floor nurse should not touch this order pre dialysis treatment or else the dialysis nurse will not be able to see this order.If BMP has been done earlier on day of HD, but there is no magnesium, call lab to add magnesium and do it downtime.Draw at start of HD on day of HD if labs not yet sent for that day.For use at start of hemodialysis treatment dur ing day of HD. Floor nurse should not touch this order pre dialysis treatment or else the dialysis nurse will not be able to see this order.Routine. If BMP kraft s been done earlier on day of HD, but there is no phosphorus, call lab to add ph osphorus, and do it downtime from previous sample sent.Draw at start of HD on da y of HD if labs not yet sent for that day.For use at start of hemodialysis uyen tment during day of HD. Floor nurse should not touch this order pre dialysis t reatment or else the dialysis nurse will not be able to see this order.MAGNESIUM 2017-04-28 13:23:00* Test Item Value Reference Range Comments MAGNESIUM (BEAKER) (test jjrv=956) 1.5 mg/dL 1.6-2.6 Draw at start of HD on day of HD if not yet sent for that day.For use at start o f hemodialysis treatment during day of HD. Floor nurse should not touch this order pre dialysis treatment or else the dialysis nurse will not be able to see this order.If BMP has been done earlier on day of HD, but there is no magnesium, call lab to add magnesium and do it downtime.Draw at start of HD on day of HD if labs not yet sent for that day.For use at start of hemodialysis treatment dur ing day of HD. Floor nurse should not touch this order pre dialysis treatment or else the dialysis nurse will not be able to see this order.Routine. If BMP kraft s been done earlier on day of HD, but there is no phosphorus, call lab to add ph osphorus, and do it downtime from previous sample sent.Draw at start of HD on da y of HD if labs not yet sent for that day.For use at start of hemodialysis uyen tment during day of HD. Floor nurse should not touch this order pre dialysis t reatment or else the dialysis nurse will not be able to see this order.POCT- GLUCOSE [id number] 11:43:00* Test Item Value Reference Range Comments POC-GLUCOSE METER (BEAKER) (test nvyl=7434) 148 mg/dL 70-110 TESTED AT [facility] [address] [facility] [address] POCT-GLUCOSE [id number] 07:46:00* Test Item Value Reference Range Comments POC-GLUCOSE METER (BEAKER) (test supt=0521) 101 mg/dL 70-110 TESTED AT [address] [address] POCT-GLUCOSE [id number] 05:37:00* Test Item Value Reference Range Comments POC-GLUCOSE METER (BEAKER) (test xact=8014) 93 mg/dL 70-110 TESTED AT [address] [address] POCT-GLUCOSE [id number] 23:42:00* Test Item Value Reference Range Comments POC-GLUCOSE METER (BEAKER) (test moqy=2504) 175 mg/dL 70-110 TESTED AT [address] [address] POCT-GLUCOSE [id number] 16:48:00* Test Item Value Reference Range Comments POC-GLUCOSE METER (BEAKER) (test apxi=0110) 244 mg/dL 70-110 TESTED AT [address] [address] POCT-GLUCOSE [id number] 12:38:00* Test Item Value Reference Range Comments POC-GLUCOSE METER (BEAKER) (test waqs=9206) 177 mg/dL 70-110 TESTED AT [address] [address] POCT-GLUCOSE [id number] 09:20:00* Test Item Value Reference Range Comments POC-GLUCOSE METER (BEAKER) (test banq=2728) 105 mg/dL 70-110 TESTED AT [address] [address] POCT-GLUCOSE [id number] 06:50:00* Test Item Value Reference Range Comments POC-GLUCOSE METER (BEAKER) (test vcqz=8031) 101 mg/dL 70-110 TESTED AT [address] [address] POCT-GLUCOSE [id number] 06:50:00* Test Item Value Reference Range Comments POC-GLUCOSE METER (BEAKER) (test golj=2225) 51 mg/dL 70-110 TESTED AT [place] [id number] POCT-GLUCOSE [id number] 21:47:00* Test Item Value Reference Range Comments POC-GLUCOSE METER (BEAKER) (test tmvn=7323) 109 mg/dL 70-110 TESTED AT [place] [address] HEPATITIS B SURFACE [id number] 20:06:00* Test Item Value Reference Range Comments HEPATITIS B SURFACE ANTIGEN (2) (BEAKER) (test evhy=9369) Nonreactive Nonreactive To lab: Do not do this or send sticker for this more than once every 30 days. Dulce uribe to please inform HD nurse not to send blood again if already sent within the past 30 days.For chronic HD patients, draw HBsAg ONCE ONLY with each admission T HEN every 30 days. Do this on day of dialysis if not yet done within the last 30 days. Do not stick patient separately just for this.Let hemodialysis nurse draw this please if not yet done within the last 30 days. Thanks.POCT-GLUCOSE METER 2017-04-26 18:10:00* Test Item Value Reference Range Comments POC-GLUCOSE METER (BEAKER) (test okee=4176) 176 mg/dL 70-110 TESTED AT [address] [address] POCT-GLUCOSE [id number] 17:19:00* Test Item Value Reference Range Comments POC-GLUCOSE METER (BEAKER) (test rrjg=3419) 177 mg/dL 70-110 TESTED AT [address] [address] POCT-GLUCOSE [id number] 12:17:00* Test Item Value Reference Range Comments POC-GLUCOSE METER (BEAKER) (test vxsn=2780) 225 mg/dL 70-110 TESTED AT [address] [address] BASIC METABOLIC [id number] 10:24:00* Test Item Value Reference Range Comments SODIUM (BEAKER) (test ylez=556) 137 meq/L 136-145 POTASSIUM (BEAKER) (test xspl=554) 4.1 meq/L 3.5-5.1 CHLORIDE (BEAKER) (test fhgv=756) 103 meq/L 98-107 CO2 (BEAKER) (test vjsm=312) 22 meq/L 22-29 BLOOD UREA NITROGEN (BEAKER) (test hmug=915) 50 mg/dL 7-21 CREATININE (BEAKER) (test jzuj=572) 3.58 mg/dL 0.57-1.25 GLUCOSE RANDOM (BEAKER) (test etzr=328) 135 mg/dL 70-105 CALCIUM (BEAKER) (test jlel=980) 8.2 mg/dL 8.4-10.2 EGFR (BEAKER) (test vvwl=1085) 12 mL/min/1.73 sq m ESTIMATED GFR IS NOT ACCURATE CREATININE CLEARANCE IN PREDICTING GLOMERULAR FILTRATION RATE. ESTIMATED GFR IS NOT APPLICABLE FOR DIALYSIS PATIENTS. POCT-GLUCOSE [id number] 08:56:00* Test Item Value Reference Range Comments POC-GLUCOSE METER (BEAKER) (test oiat=1666) 142 mg/dL 70-110 TESTED AT [facility] [address] [facility] [address] CBC W/PLT COUNT & AUTO [id number] 07:00:00* Test Item Value Reference Range Comments WHITE BLOOD CELL COUNT (BEAKER) (test cbii=247) 5.0 K/ L 3.5-10.5 RED BLOOD CELL COUNT (BEAKER) (test puek=796) 2.90 M/ L 3.93-5.22 HEMOGLOBIN (BEAKER) (test dpdb=999) 8.3 GM/DL 11.2-15.7 HEMATOCRIT (BEAKER) (test exvs=657) 26.5 % 34.1-44.9 MEAN CORPUSCULAR VOLUME (BEAKER) (test iksd=060) 91.4 fL 79.4-94.8 MEAN CORPUSCULAR HEMOGLOBIN (BEAKER) (test igtq=052) 28.6 pg 25.6-32.2 MEAN CORPUSCULAR HEMOGLOBIN CONC (BEAKER) (test qljx=617) 31.3 GM/DL 32.2-35.5 RED CELL DISTRIBUTION WIDTH (BEAKER) (test gvar=103) 14.0 % 11.7-14.4 PLATELET COUNT (BEAKER) (test jhwn=589) 116 K/CU MM 150-450 MEAN PLATELET VOLUME (BEAKER) (test bazn=439) 11.6 fL 9.4-12.3 NUCLEATED RED BLOOD CELLS (BEAKER) (test lktv=541) 0 /100 WBC 0-0 NEUTROPHILS RELATIVE PERCENT (BEAKER) (test tgwf=733) 65 % LYMPHOCYTES RELATIVE PERCENT (BEAKER) (test fbfg=977) 23 % MONOCYTES RELATIVE PERCENT (BEAKER) (test dngv=240) 7 % EOSINOPHILS RELATIVE PERCENT (BEAKER) (test nnus=813) 4 % BASOPHILS RELATIVE PERCENT (BEAKER) (test tyat=223) 0 % NEUTROPHILS ABSOLUTE COUNT (BEAKER) (test jsuz=425) 3.20 K/ L 1.56-6.13 LYMPHOCYTES ABSOLUTE COUNT (BEAKER) (test ymlg=036) 1.15 K/ L 1.18-3.74 MONOCYTES ABSOLUTE COUNT (BEAKER) (test qiyo=138) 0.36 K/ L 0.24-0.36 EOSINOPHILS ABSOLUTE COUNT (BEAKER) (test jafa=434) 0.20 K/ L 0.04-0.36 BASOPHILS ABSOLUTE COUNT (BEAKER) (test zudd=783) 0.02 K/ L 0.01-0.08 IMMATURE GRANULOCYTES-RELATIVE PERCENT (BEAKER) (test yxad=6628) 1 % 0-1 POCT-GLUCOSE [id number] 21:57:00* Test Item Value Reference Range Comments POC-GLUCOSE METER (BEAKER) (test xvmc=8699) 208 mg/dL 70-110 TESTED AT [place] [id number] [facility] [address] ANG, TUNNELED CATHETER [id number] 18:00:00Reason for exam:->esrdFINAL REPORT Tunneled dialysis catheter insertion, 04/25/2017. History: Renal failure. Modality: Sonography and fluoroscopy. Sedation: Versed 1 mg and fentanyl 50 mcg was given intravenously for conscious sedation. Vital signs were monitored throughout the procedure by a nurse, and remained stable. Physician intra-service time was 20 minutes. Intensive Care Medicine Specialist: Briana. Pelletising Extruder Operator: Dr. Hastings. Approach: Right internal jugular vein Estimated blood loss: < 5 cc. Specimen: None. Fluoroscopy Time: 0.3 min. Dose (Ka,r): 8 mGy. Technique: Informed written consent was obtained. Discussion of risks, benefits, and alternatives were made with the patient. The patient expressed understanding and agreed to proceed. All elements maximal sterile barrier technique was utilized for this procedure, including utilization of sterile scrub solution for skin prep, a large sterile sheet to cover the areas of the patient that were not prepped, and hand hygiene, mask, head covering, and sterile gown for performing radiologist and scrub technologist. The skin was anesthetized with 2% lidocaine.Ultrasound evaluation showed a patent and compressible right internal jugular vein, which was punctured under direct real-time ultrasound guidance with a micropuncture needle. An ultrasound image was saved to PACS. A 0.018 inch wire was placed through the needle into the right atrium. A 4 Indian micropuncture sheath was placed. A subcutaneous tunnel was created in the right anterior chest wall by blunt dissection. A 19 cm 15.5 Indian Duraflow 2 catheter was brought through the tunnel. The vessel tract was serially dilated over a J-wire. A peel-away sh eath was placed in the right IJ vein and the catheter was advanced through the s radha, with its distal tip terminating in the right atrium. The peel-away sheat h was removed. The ports were flushed and aspirated easily following placement. The catheter was sutured to the skin with 2-0 silk to secure its placement. The small jugular incision site was closed using resorbable suture. Vital signs were monitored throughout the procedure by a nurse, and remained stable. The patient tolerated the procedure well and left the department in the same condition. The patient was given 1 gram of Ancef intravenously during the procedure. Results: Spot radiograph of the chest demonstrates the new dialysis catheter to lie in the expected position with its tip overlying the superior right atrium. Impre ssion: Successful, uncomplicated placement of a right internal jugular tunneled dialysis catheter u sing sonographic and fluoroscopic guidance and conscious sedation. Signed: Hang [place] Verified Date/Time: 04/25/2017 18:00:17 Reading Locati on: [facility] B1 P048 Angio Body Reading Room /[id number] 15:39:00* Test Item Value Reference Range Comments PROTIME (BEAKER) (test aprc=848) 15.5 seconds 11.7-14.7 INR (BEAKER) (test nhdx=769) 1.2 <=5.9 PARTIAL THROMBOPLASTIN TIME (BEAKER) (test wlse=100) 39.6 seconds 22.5-36.0 RECOMMENDED COUMADIN/WARFARIN INR THERAPY RANGESSTANDARD DOSE: 2.0 - 3.0 Inclu abigail: PROPHYLAXIS for venous thrombosis, systemic embolization; TREATMENT for adriana ous thrombosis and/or pulmonary embolus.HIGH RISK: Target INR is 2.5-3.5 for pat ients with mechanical heart valves.PLATELET [id number] 15:23:00* Test Item Value Reference Range Comments PLATELET COUNT (BEAKER) (test towa=399) 110 K/CU MM 150-450 POCT-GLUCOSE [id number] 12:10:00* Test Item Value Reference Range Comments POC-GLUCOSE METER (BEAKER) (test dlqo=3247) 146 mg/dL 70-110 TESTED AT [facility] [address] [facility] [address] POCT-GLUCOSE [id number] 11:25:00* Test Item Value Reference Range Comments POC-GLUCOSE METER (BEAKER) (test tjpe=2696) 49 mg/dL 70-110 TESTED AT [address] [address] POCT-GLUCOSE [id number] 08:50:00* Test Item Value Reference Range Comments POC-GLUCOSE METER (BEAKER) (test mghg=3127) 88 mg/dL 70-110 TESTED AT [address] [address] URINE [id number] 08:43:00* Test Item Value Reference Range Comments CULTURE (BEAKER) (test lmix=7297) See comment <10,000 col/mL Gram Negative RodPOCT-GLUCOSE [id number] 07:41:00* Test Item Value Reference Range Comments POC-GLUCOSE METER (BEAKER) (test qtir=4058) 168 mg/dL 70-110 TESTED AT [address] [address] BASIC METABOLIC [id number] 05:50:00* Test Item Value Reference Range Comments SODIUM (BEAKER) (test mapq=607) 139 meq/L 136-145 POTASSIUM (BEAKER) (test nzql=852) 3.9 meq/L 3.5-5.1 CHLORIDE (BEAKER) (test kzle=883) 105 meq/L 98-107 CO2 (BEAKER) (test jitf=061) 22 meq/L 22-29 BLOOD UREA NITROGEN (BEAKER) (test qdiw=988) 47 mg/dL 7-21 CREATININE (BEAKER) (test qene=856) 3.38 mg/dL 0.57-1.25 GLUCOSE RANDOM (BEAKER) (test xakq=895) 44 mg/dL 70-105 CALCIUM (BEAKER) (test xydc=030) 8.1 mg/dL 8.4-10.2 EGFR (BEAKER) (test xkwp=5761) 13 mL/min/1.73 sq m ESTIMATED GFR IS NOT ACCURATE CREATININE CLEARANCE IN PREDICTING GLOMERULAR FILTRATION RATE. ESTIMATED GFR IS NOT APPLICABLE FOR DIALYSIS PATIENTS. POCT-GLUCOSE [id number] 22:06:00* Test Item Value Reference Range Comments POC-GLUCOSE METER (BEAKER) (test kgtu=1594) 157 mg/dL 70-110 TESTED AT [place] [id number] [facility] [address] POCT-GLUCOSE [id number] 17:56:00* Test Item Value Reference Range Comments POC-GLUCOSE METER (BEAKER) (test hccz=8132) 169 mg/dL 70-110 TESTED AT [address] [address] POCT-GLUCOSE [id number] 13:54:00* Test Item Value Reference Range Comments POC-GLUCOSE METER (BEAKER) (test gewq=9862) 169 mg/dL 70-110 TESTED AT [place] [address] RESPIRATORY PANEL [id number] 10:44:00* Test Item Value Reference Range Comments HUMAN METAPNEUMOVIRUS (BEAKER) (test xlbc=9078) Not detected Not detected, Inconclusive RHINOVIRUS (BEAKER) (test kjwd=0100) Not detected Not detected, Inconclusive INFLUENZA A (BEAKER) (test lqvn=7127) Not detected Not detected, Inconclusive INFLUENZA A SUBTYPE H1 (BEAKER) (test huak=5363) Not detected Not detected, Inconclusive INFLUENZA A SUBTYPE H3 (BEAKER) (test zdti=5792) Detected Not detected, Inconclusive INFLUENZA A SUBTYPE H1-2009 (BEAKER) (test wapw=5726) Not detected Not detected, Inconclusive INFLUENZA B (BEAKER) (test bswo=0789) Not detected Not detected, Inconclusive RESPIRATORY SYNCYTIAL VIRUS (BEAKER) (test zqcx=1369) Not detected Not detected, Inconclusive PARAINFLUENZA VIRUS 1 (BEAKER) (test ckoo=9005) Not detected Not detected, Inconclusive PARAINFLUENZA VIRUS 2 (BEAKER) (test frti=1706) Not detected Not detected, Inconclusive PARAINFLUENZA VIRUS 3 (BEAKER) (test wjme=0118) Not detected Not detected, Inconclusive PARAINFLUENZA VIRUS 4 (BEAKER) (test kmqv=6485) Not detected Not detected, Inconclusive ADENOVIRUS (BEAKER) (test kgxy=1209) Not detected Not detected, Inconclusive CORONAVIRUS 229E (BEAKER) (test janz=7486) Not detected Not detected, Inconclusive CORONAVIRUS HKU1 (BEAKER) (test etdj=2372) Not detected Not detected, Inconclusive CORONAVIRUS NL63 (BEAKER) (test ggni=6745) Not detected Not detected, Inconclusive CORONAVIRUS OC43 (BEAKER) (test oytw=6806) Not detected Not detected, Inconclusive BORDETELLA PERTUSSIS (BEAKER) (test maqu=2558) Not detected Not detected, Inconclusive CHLAMYDOPHILA PNEUMONIAE (BEAKER) (test yveg=0909) Not detected Not detected, Inconclusive MYCOPLASMA PNEUMONIAE (BEAKER) (test cbms=6352) Not detected Not detected, Inconclusive POCT-GLUCOSE [id number] 08:41:00* Test Item Value Reference Range Comments POC-GLUCOSE METER (BEAKER) (test qweb=0572) 98 mg/dL 70-110 TESTED AT [facility] [address] [facility] [address] BASIC METABOLIC [id number] 05:55:00* Test Item Value Reference Range Comments SODIUM (BEAKER) (test jopj=384) 143 meq/L 136-145 POTASSIUM (BEAKER) (test haxf=001) 4.6 meq/L 3.5-5.1 CHLORIDE (BEAKER) (test xijz=121) 110 meq/L 98-107 CO2 (BEAKER) (test bpxz=240) 25 meq/L 22-29 BLOOD UREA NITROGEN (BEAKER) (test yifz=417) 47 mg/dL 7-21 CREATININE (BEAKER) (test ndpu=407) 3.41 mg/dL 0.57-1.25 GLUCOSE RANDOM (BEAKER) (test clyv=256) 86 mg/dL 70-105 CALCIUM (BEAKER) (test higd=493) 8.5 mg/dL 8.4-10.2 EGFR (BEAKER) (test htdj=4394) 13 mL/min/1.73 sq m ESTIMATED GFR IS NOT ACCURATE CREATININE CLEARANCE IN PREDICTING GLOMERULAR FILTRATION RATE. ESTIMATED GFR IS NOT APPLICABLE FOR DIALYSIS PATIENTS. [id number] 05:46:00* Test Item Value Reference Range Comments PHOSPHORUS (BEAKER) (test tlqa=942) 4.9 mg/dL 2.3-4.7 [id number] 05:46:00* Test Item Value Reference Range Comments MAGNESIUM (BEAKER) (test okrt=966) 1.8 mg/dL 1.6-2.6 POCT-GLUCOSE [id number] 23:53:00* Test Item Value Reference Range Comments POC-GLUCOSE METER (BEAKER) (test yanz=4016) 133 mg/dL 70-110 TESTED AT [address] [address] POCT-GLUCOSE [id number] 16:41:00* Test Item Value Reference Range Comments POC-GLUCOSE METER (BEAKER) (test rtjz=1829) 124 mg/dL 70-110 TESTED AT [address] [address] POCT-GLUCOSE [id number] 16:41:00* Test Item Value Reference Range Comments POC-GLUCOSE METER (BEAKER) (test zfxf=6147) 60 mg/dL 70-110 Notified ENMA CHANG/TESTED AT [place] [id number] TROPONIN [id number] 14:01:00* Test Item Value Reference Range Comments TROPONIN I (BEAKER) (test vgom=372) 0.17 ng/mL 0.00-0.03 Troponin I (TnI) levels must be interpreted in the context of the presenting sym ptoms and the clinical findings. Elevated TnI levels indicate myocardial damage, but are not specific for ischemic heart disease. Elevated TnI levels are seen in patients with other cardiac conditions (including myocarditis and congestive h eart failure), and slight TnI elevations occur in patients with other conditions , including sepsis, renal failure, acidosis, acute neurological disease, and per sistent tachyarrhythmia.TROPONIN [id number] 05:29:00* Test Item Value Reference Range Comments TROPONIN I (BEAKER) (test cqpd=956) 0.13 ng/mL 0.00-0.03 Troponin I (TnI) levels must be interpreted in the context of the presenting sym ptoms and the clinical findings. Elevated TnI levels indicate myocardial damage, but are not specific for ischemic heart disease. Elevated TnI levels are seen in patients with other cardiac conditions (including myocarditis and congestive h eart failure), and slight TnI elevations occur in patients with other conditions , including sepsis, renal failure, acidosis, acute neurological disease, and per sistent tachyarrhythmia.BASIC METABOLIC [id number] 05:28:00* Test Item Value Reference Range Comments SODIUM (BEAKER) (test xokl=634) 139 meq/L 136-145 POTASSIUM (BEAKER) (test dkbz=113) 3.7 meq/L 3.5-5.1 CHLORIDE (BEAKER) (test fres=928) 107 meq/L 98-107 CO2 (BEAKER) (test zodv=601) 21 meq/L 22-29 BLOOD UREA NITROGEN (BEAKER) (test qdzm=917) 47 mg/dL 7-21 CREATININE (BEAKER) (test gwfh=705) 3.18 mg/dL 0.57-1.25 GLUCOSE RANDOM (BEAKER) (test djwc=113) 82 mg/dL 70-105 CALCIUM (BEAKER) (test riyb=161) 9.0 mg/dL 8.4-10.2 EGFR (BEAKER) (test kadx=8168) 14 mL/min/1.73 sq m ESTIMATED GFR IS NOT ACCURATE CREATININE CLEARANCE IN PREDICTING GLOMERULAR FILTRATION RATE. ESTIMATED GFR IS NOT APPLICABLE FOR DIALYSIS PATIENTS. POCT-GLUCOSE [id number] 04:17:00* Test Item Value Reference Range Comments POC-GLUCOSE METER (BEAKER) (test yjzy=3301) 100 mg/dL 70-110 TESTED AT [facility] [address] [facility] [address] POCT-GLUCOSE [id number] 04:17:00* Test Item Value Reference Range Comments POC-GLUCOSE METER (BEAKER) (test rduz=0215) 50 mg/dL 70-110 TESTED AT [place] [id number] [facility] [address] RAD, CHEST, 1 VIEW, NON [id number] 21:28:00Reason for exam:->SHORTNESS OF BREATHShould this be performed at the bedside?->YesFINAL REPORT Comparison: 03/27/2017 TECHNIQUE: Single view of the chest FINDINGS: There is mild prominence of interstitial markings. Bibasal opacities are seen. Findings may be due to vascular congestion although nonspecific pneumonitis could have similar appearance. No large effusions or pneumothorax. Cardiac silhouette is magnified by technique. Postsurgical changes in the mediastinum noted. No acute skeletal abnormality. Signed: Gordo [place] Verified Date/Time: 04/22/2017 21:28:12 Reading Location: [address] Consult Reading Room [id number] 21:26:00* Test Item Value Reference Range Comments D-DIMER QUANTITATIVE (BEAKER) (test ictv=752) 1.79 MG/L FEU <0.50 REGARDING D-DIMER RESULTS: Results of this D-Dimer test should always be interpr eted in conjunction with the patient's medical history, clinical presentation an d other findings. DVT clinical diagnosis should not be based on the results of I NNOVANCE D-Dimer alone.RAPID TROPONIN [id number] 21:22:00* Test Item Value Reference Range Comments RAPID TROPONIN I (BEAKER) (test zpqf=3779) < ng/mL <0.05 B-TYPE NATRIURETIC FACTOR (BNP)2017-04-22 21:15:00* Test Item Value Reference Range Comments B-TYPE NATRIURETIC PEPTIDE (BEAKER) (test ocpy=893) 2660 pg/mL 0-100 COMPREHENSIVE METABOLIC [id number] 21:11:00* Test Item Value Reference Range Comments TOTAL PROTEIN (BEAKER) (test qnhp=122) 7.5 gm/dL 6.0-8.5 ALBUMIN (BEAKER) (test hiyb=8967) 3.6 g/dL 3.5-5.0 ALKALINE PHOSPHATASE (BEAKER) (test pqqm=437) 147 U/L 30-115 BILIRUBIN TOTAL (BEAKER) (test icos=785) 0.7 mg/dL 0.1-1.2 SODIUM (BEAKER) (test aaqc=321) 144 meq/L 135-148 POTASSIUM (BEAKER) (test qrft=354) 4.1 meq/L 3.6-5.5 CHLORIDE (BEAKER) (test wcdy=563) 106 meq/L 98-106 CO2 (BEAKER) (test kdxn=255) 21 meq/L 24-32 BLOOD UREA NITROGEN (BEAKER) (test tnba=254) 44 mg/dL 10-26 CREATININE (BEAKER) (test bpon=006) 3.05 mg/dL 0.50-1.20 GLUCOSE RANDOM (BEAKER) (test kggb=132) 108 mg/dL 70-110 CALCIUM (BEAKER) (test gklu=183) 8.4 mg/dL 8.5-10.5 AST (SGOT) (BEAKER) (test xhdr=135) 38 U/L 5-40 ALT (SGPT) (BEAKER) (test uwch=760) 49 U/L 5-50 EGFR (BEAKER) (test seof=5454) 15 mL/min/1.73 sq m ESTIMATED GFR IS NOT ACCURATE CREATININE CLEARANCE IN PREDICTING GLOMERULAR FILTRATION RATE. ESTIMATED GFR IS NOT APPLICABLE FOR DIALYSIS PATIENTS. CBC W/PLT COUNT & AUTO [id number] 21:10:00* Test Item Value Reference Range Comments WHITE BLOOD CELL COUNT (BEAKER) (test kdmy=767) 6.1 10e3/ L 4.0-10.0 RED BLOOD CELL COUNT (BEAKER) (test mjkn=696) 2.84 10e6/ L 4.00-5.00 HEMOGLOBIN (BEAKER) (test drja=874) 8.5 g/dL 12.0-15.0 HEMATOCRIT (BEAKER) (test lwkr=788) 25.9 % 36.0-45.0 MEAN CORPUSCULAR VOLUME (BEAKER) (test hvau=335) 91.2 fL 82.0-99.0 MEAN CORPUSCULAR HEMOGLOBIN (BEAKER) (test piqo=006) 30.0 pg 27.0-33.0 MEAN CORPUSCULAR HEMOGLOBIN CONC (BEAKER) (test vdwt=399) 32.9 g/dL 32.0-36.0 RED CELL DISTRIBUTION WIDTH (BEAKER) (test vyiw=972) 13.1 % 10.3-14.2 PLATELET COUNT (BEAKER) (test nblk=109) 126 10e3/ L 150-430 MEAN PLATELET VOLUME (BEAKER) (test rrha=227) 8.3 fL 6.5-10.5 NEUTROPHILS RELATIVE PERCENT (BEAKER) (test xbpl=813) 78 % LYMPHOCYTES RELATIVE PERCENT (BEAKER) (test ivqj=453) 13 % MONOCYTES RELATIVE PERCENT (BEAKER) (test ovdt=138) 8 % EOSINOPHILS RELATIVE PERCENT (BEAKER) (test tmrz=077) 1 % BASOPHILS RELATIVE PERCENT (BEAKER) (test uzfi=071) 0 % NEUTROPHILS ABSOLUTE COUNT (BEAKER) (test iqog=400) 4.77 10e3/ L 1.80-8.00 LYMPHOCYTES ABSOLUTE COUNT (BEAKER) (test raxv=804) 0.78 10e3/ L 1.48-4.50 MONOCYTES ABSOLUTE COUNT (BEAKER) (test tpmi=956) 0.48 10e3/ L 0.00-1.30 EOSINOPHILS ABSOLUTE COUNT (BEAKER) (test bepo=402) 0.07 10e3/ L 0.00-0.50 BASOPHILS ABSOLUTE COUNT (BEAKER) (test qtkv=006) 0.01 10e3/ L 0.00-0.20 POCT-GLUCOSE [id number] 16:32:00* Test Item Value Reference Range Comments POC-GLUCOSE METER (BEAKER) (test pceg=4038) 162 mg/dL 70-110 TESTED AT [address] [address] POCT-GLUCOSE [id number] 11:42:00* Test Item Value Reference Range Comments POC-GLUCOSE METER (BEAKER) (test cokz=5370) 235 mg/dL 70-110 TESTED AT [address] [address] POCT-GLUCOSE [id number] 08:26:00* Test Item Value Reference Range Comments POC-GLUCOSE METER (BEAKER) (test wpcx=3982) 141 mg/dL 70-110 TESTED AT [address] [address] BASIC METABOLIC [id number] 04:24:00* Test Item Value Reference Range Comments SODIUM (BEAKER) (test kyzo=976) 139 meq/L 136-145 POTASSIUM (BEAKER) (test wbsa=419) 3.6 meq/L 3.5-5.1 CHLORIDE (BEAKER) (test pfdh=904) 97 meq/L 98-107 CO2 (BEAKER) (test xorv=887) 28 meq/L 22-29 BLOOD UREA NITROGEN (BEAKER) (test dmzx=938) 58 mg/dL 7-21 CREATININE (BEAKER) (test pvbi=487) 4.37 mg/dL 0.57-1.25 GLUCOSE RANDOM (BEAKER) (test baax=212) 132 mg/dL 70-105 CALCIUM (BEAKER) (test aljx=459) 9.1 mg/dL 8.4-10.2 EGFR (BEAKER) (test sdtj=2932) 10 mL/min/1.73 sq m ESTIMATED GFR IS NOT ACCURATE CREATININE CLEARANCE IN PREDICTING GLOMERULAR FILTRATION RATE. ESTIMATED GFR IS NOT APPLICABLE FOR DIALYSIS PATIENTS. CBC W/PLT COUNT & AUTO [id number] 03:51:00* Test Item Value Reference Range Comments WHITE BLOOD CELL COUNT (BEAKER) (test djhq=717) 9.4 K/ L 3.5-10.5 RED BLOOD CELL COUNT (BEAKER) (test qysw=174) 3.22 M/ L 3.93-5.22 HEMOGLOBIN (BEAKER) (test ogba=062) 9.4 GM/DL 11.2-15.7 HEMATOCRIT (BEAKER) (test vgtv=258) 29.1 % 34.1-44.9 MEAN CORPUSCULAR VOLUME (BEAKER) (test nejo=786) 90.4 fL 79.4-94.8 MEAN CORPUSCULAR HEMOGLOBIN (BEAKER) (test vhxd=007) 29.2 pg 25.6-32.2 MEAN CORPUSCULAR HEMOGLOBIN CONC (BEAKER) (test ajjy=097) 32.3 GM/DL 32.2-35.5 RED CELL DISTRIBUTION WIDTH (BEAKER) (test uvdr=128) 13.3 % 11.7-14.4 PLATELET COUNT (BEAKER) (test qlua=602) 161 K/CU MM 150-450 MEAN PLATELET VOLUME (BEAKER) (test xvgb=521) 11.0 fL 9.4-12.3 NUCLEATED RED BLOOD CELLS (BEAKER) (test fusv=445) 0 /100 WBC 0-0 NEUTROPHILS RELATIVE PERCENT (BEAKER) (test cttg=869) 70 % LYMPHOCYTES RELATIVE PERCENT (BEAKER) (test pkpi=885) 19 % MONOCYTES RELATIVE PERCENT (BEAKER) (test aknk=343) 7 % EOSINOPHILS RELATIVE PERCENT (BEAKER) (test bvtd=974) 3 % BASOPHILS RELATIVE PERCENT (BEAKER) (test krev=996) 0 % NEUTROPHILS ABSOLUTE COUNT (BEAKER) (test wuub=580) 6.59 K/ L 1.56-6.13 LYMPHOCYTES ABSOLUTE COUNT (BEAKER) (test cojz=168) 1.78 K/ L 1.18-3.74 MONOCYTES ABSOLUTE COUNT (BEAKER) (test ffjh=289) 0.65 K/ L 0.24-0.36 EOSINOPHILS ABSOLUTE COUNT (BEAKER) (test wtzy=867) 0.27 K/ L 0.04-0.36 BASOPHILS ABSOLUTE COUNT (BEAKER) (test liqi=969) 0.03 K/ L 0.01-0.08 IMMATURE GRANULOCYTES-RELATIVE PERCENT (BEAKER) (test fjpp=6475) 1 % 0-1 POCT-GLUCOSE [id number] 01:57:00* Test Item Value Reference Range Comments POC-GLUCOSE METER (BEAKER) (test mmob=5561) 86 mg/dL 70-110 TESTED AT [address] [address] POCT-GLUCOSE [id number] 20:45:00* Test Item Value Reference Range Comments POC-GLUCOSE METER (BEAKER) (test vehu=5931) 172 mg/dL 70-110 TESTED AT [address] [address] POCT-GLUCOSE [id number] 18:24:00* Test Item Value Reference Range Comments POC-GLUCOSE METER (BEAKER) (test imsn=3640) 184 mg/dL 70-110 TESTED AT [address] [address] POCT-GLUCOSE [id number] 13:09:00* Test Item Value Reference Range Comments POC-GLUCOSE METER (BEAKER) (test foje=0830) 254 mg/dL 70-110 TESTED AT [address] [address] POCT-GLUCOSE [id number] 07:47:00* Test Item Value Reference Range Comments POC-GLUCOSE METER (BEAKER) (test thux=6410) 79 mg/dL 70-110 TESTED AT [address] [address] BASIC METABOLIC [id number] 06:52:00* Test Item Value Reference Range Comments SODIUM (BEAKER) (test vyqc=607) 139 meq/L 136-145 POTASSIUM (BEAKER) (test kqge=939) 3.6 meq/L 3.5-5.1 CHLORIDE (BEAKER) (test kwjf=283) 100 meq/L 98-107 CO2 (BEAKER) (test sauz=703) 27 meq/L 22-29 BLOOD UREA NITROGEN (BEAKER) (test juhq=067) 59 mg/dL 7-21 CREATININE (BEAKER) (test inew=529) 4.17 mg/dL 0.57-1.25 GLUCOSE RANDOM (BEAKER) (test wjvi=604) 70 mg/dL 70-105 CALCIUM (BEAKER) (test xacy=411) 8.9 mg/dL 8.4-10.2 EGFR (BEAKER) (test phws=8200) 10 mL/min/1.73 sq m ESTIMATED GFR IS NOT ACCURATE CREATININE CLEARANCE IN PREDICTING GLOMERULAR FILTRATION RATE. ESTIMATED GFR IS NOT APPLICABLE FOR DIALYSIS PATIENTS. CBC W/PLT COUNT & AUTO [id number] 05:32:00* Test Item Value Reference Range Comments WHITE BLOOD CELL COUNT (BEAKER) (test lbjj=708) 8.6 K/ L 3.5-10.5 RED BLOOD CELL COUNT (BEAKER) (test mlvj=605) 2.64 M/ L 3.93-5.22 HEMOGLOBIN (BEAKER) (test wwfy=498) 7.7 GM/DL 11.2-15.7 HEMATOCRIT (BEAKER) (test orxq=737) 24.2 % 34.1-44.9 MEAN CORPUSCULAR VOLUME (BEAKER) (test hbsu=276) 91.7 fL 79.4-94.8 MEAN CORPUSCULAR HEMOGLOBIN (BEAKER) (test cnif=476) 29.2 pg 25.6-32.2 MEAN CORPUSCULAR HEMOGLOBIN CONC (BEAKER) (test shtr=205) 31.8 GM/DL 32.2-35.5 RED CELL DISTRIBUTION WIDTH (BEAKER) (test puis=044) 13.9 % 11.7-14.4 PLATELET COUNT (BEAKER) (test bscz=839) 151 K/CU MM 150-450 MEAN PLATELET VOLUME (BEAKER) (test kmcu=355) 11.0 fL 9.4-12.3 NUCLEATED RED BLOOD CELLS (BEAKER) (test znhh=771) 0 /100 WBC 0-0 NEUTROPHILS RELATIVE PERCENT (BEAKER) (test pumc=657) 67 % LYMPHOCYTES RELATIVE PERCENT (BEAKER) (test sihk=263) 22 % MONOCYTES RELATIVE PERCENT (BEAKER) (test isfk=888) 8 % EOSINOPHILS RELATIVE PERCENT (BEAKER) (test pjnd=523) 3 % BASOPHILS RELATIVE PERCENT (BEAKER) (test bhaq=247) 1 % NEUTROPHILS ABSOLUTE COUNT (BEAKER) (test kxzm=206) 5.70 K/ L 1.56-6.13 LYMPHOCYTES ABSOLUTE COUNT (BEAKER) (test fwss=774) 1.84 K/ L 1.18-3.74 MONOCYTES ABSOLUTE COUNT (BEAKER) (test jmyu=311) 0.68 K/ L 0.24-0.36 EOSINOPHILS ABSOLUTE COUNT (BEAKER) (test kzlt=310) 0.25 K/ L 0.04-0.36 BASOPHILS ABSOLUTE COUNT (BEAKER) (test vxjl=694) 0.05 K/ L 0.01-0.08 IMMATURE GRANULOCYTES-RELATIVE PERCENT (BEAKER) (test nihh=7790) 1 % 0-1 POCT-GLUCOSE [id number] 21:22:00* Test Item Value Reference Range Comments POC-GLUCOSE METER (BEAKER) (test yhej=9687) 126 mg/dL 70-110 TESTED AT [address] [address] POCT-GLUCOSE [id number] 18:26:00* Test Item Value Reference Range Comments POC-GLUCOSE METER (BEAKER) (test lopx=7571) 180 mg/dL 70-110 TESTED AT [address] [address] POCT-GLUCOSE [id number] 13:21:00* Test Item Value Reference Range Comments POC-GLUCOSE METER (BEAKER) (test asux=4277) 350 mg/dL 70-110 Notified ENMA CHANG/TESTED AT [address] [address] POCT-GLUCOSE [id number] 08:45:00* Test Item Value Reference Range Comments POC-GLUCOSE METER (BEAKER) (test ajiy=9842) 211 mg/dL 70-110 TESTED AT [address] [address] BASIC METABOLIC [id number] 04:38:00* Test Item Value Reference Range Comments SODIUM (BEAKER) (test isyv=345) 138 meq/L 136-145 POTASSIUM (BEAKER) (test qmps=514) 3.5 meq/L 3.5-5.1 CHLORIDE (BEAKER) (test bcso=551) 98 meq/L 98-107 CO2 (BEAKER) (test yksn=299) 27 meq/L 22-29 BLOOD UREA NITROGEN (BEAKER) (test lbod=087) 60 mg/dL 7-21 CREATININE (BEAKER) (test azcr=888) 3.80 mg/dL 0.57-1.25 GLUCOSE RANDOM (BEAKER) (test nusa=241) 216 mg/dL 70-105 CALCIUM (BEAKER) (test gogw=275) 8.6 mg/dL 8.4-10.2 EGFR (BEAKER) (test vkhm=2117) 12 mL/min/1.73 sq m ESTIMATED GFR IS NOT ACCURATE CREATININE CLEARANCE IN PREDICTING GLOMERULAR FILTRATION RATE. ESTIMATED GFR IS NOT APPLICABLE FOR DIALYSIS PATIENTS. CBC W/PLT COUNT & AUTO [id number] 04:26:00* Test Item Value Reference Range Comments WHITE BLOOD CELL COUNT (BEAKER) (test wppb=522) 8.6 K/ L 3.5-10.5 RED BLOOD CELL COUNT (BEAKER) (test ljxp=335) 3.05 M/ L 3.93-5.22 HEMOGLOBIN (BEAKER) (test gjyt=019) 8.8 GM/DL 11.2-15.7 HEMATOCRIT (BEAKER) (test dcsy=208) 27.0 % 34.1-44.9 MEAN CORPUSCULAR VOLUME (BEAKER) (test xvub=661) 88.5 fL 79.4-94.8 MEAN CORPUSCULAR HEMOGLOBIN (BEAKER) (test xogq=882) 28.9 pg 25.6-32.2 MEAN CORPUSCULAR HEMOGLOBIN CONC (BEAKER) (test cuip=228) 32.6 GM/DL 32.2-35.5 RED CELL DISTRIBUTION WIDTH (BEAKER) (test uevm=340) 13.6 % 11.7-14.4 PLATELET COUNT (BEAKER) (test mteg=152) 174 K/CU MM 150-450 MEAN PLATELET VOLUME (BEAKER) (test kjjy=507) 11.3 fL 9.4-12.3 NUCLEATED RED BLOOD CELLS (BEAKER) (test oirg=868) 0 /100 WBC 0-0 NEUTROPHILS RELATIVE PERCENT (BEAKER) (test jfar=685) 77 % LYMPHOCYTES RELATIVE PERCENT (BEAKER) (test jhoh=355) 13 % MONOCYTES RELATIVE PERCENT (BEAKER) (test kjbh=544) 7 % EOSINOPHILS RELATIVE PERCENT (BEAKER) (test joca=520) 3 % BASOPHILS RELATIVE PERCENT (BEAKER) (test pqhg=606) 0 % NEUTROPHILS ABSOLUTE COUNT (BEAKER) (test onmy=799) 6.63 K/ L 1.56-6.13 LYMPHOCYTES ABSOLUTE COUNT (BEAKER) (test shpr=089) 1.08 K/ L 1.18-3.74 MONOCYTES ABSOLUTE COUNT (BEAKER) (test czpk=406) 0.59 K/ L 0.24-0.36 EOSINOPHILS ABSOLUTE COUNT (BEAKER) (test zzad=380) 0.25 K/ L 0.04-0.36 BASOPHILS ABSOLUTE COUNT (BEAKER) (test ltkc=279) 0.03 K/ L 0.01-0.08 IMMATURE GRANULOCYTES-RELATIVE PERCENT (BEAKER) (test lmrv=6464) 1 % 0-1 POCT-GLUCOSE [id number] 22:43:00* Test Item Value Reference Range Comments POC-GLUCOSE METER (BEAKER) (test uumk=9248) 303 mg/dL 70-110 Notified ENMA CHANG/TESTED AT [place] [id number] POCT-GLUCOSE [id number] 21:41:00* Test Item Value Reference Range Comments POC-GLUCOSE METER (BEAKER) (test rmge=5854) 140 mg/dL 70-110 TESTED AT [place] [address] [id number] 17:57:00* Test Item Value Reference Range Comments ACTIVATED CLOTTING TIME (BEAKER) (test lygw=718) 131 sec TESTED AT [place] [address] [id number] 16:09:00* Test Item Value Reference Range Comments ACTIVATED CLOTTING TIME (BEAKER) (test kybf=695) 169 sec TESTED AT [place] [address] POCT-GLUCOSE [id number] 13:10:00* Test Item Value Reference Range Comments POC-GLUCOSE METER (BEAKER) (test hwol=0617) 134 mg/dL 70-110 TESTED AT [place] [address] [id number] 11:39:00* Test Item Value Reference Range Comments ACTIVATED CLOTTING TIME (BEAKER) (test unzh=095) 290 sec TESTED AT [place] [address] [id number] 11:39:00* Test Item Value Reference Range Comments ACTIVATED CLOTTING TIME (BEAKER) (test tnrj=225) 241 sec TESTED AT [place] [address] TISSUE [id number] 11:09:00Surgical Pathology Report Case: [id number] Authorizing Provider: Forrest Narayan DPM Collected: 03/28/2017 1331 Ordering Location: [facility] PERIOPERATIVE Received: 03/28/2017 1423 SERVICES Pathologist: Stewart Sanchez MD Specimen: Toe, Left, 2ND DIGIT LEFT FOOT LEFT FOOT, SECOND TOE, AMPUTATION: - ACUTE AND CHRONIC OSTEOMYELITIS - ISCHEMIC TYPE NECROSIS OF SUBCUTANEOUS SOFT TISSUE - VIABLE SKIN AND SOFT TISSUE MARGIN - VIABLE BONE MARROW MARGIN Signing Pathologist Direct Phone Line: [phone] signed by Stewart Sanchez MD on 04/01/2017 at 11:09 [id number] 2nd digit left footThe specimen is received in a fluidless container labeled with the patient's information and "2nd digit left foot" and consists of an amputated digit measuring 3.6 x 1.5 x 1 cm. The nailbed is necrotic measuring 1 x 0.8 cm located 1.5 cm from the skin resection margin. No other abnormalities are seen.Section code: A1, skin resection margin en face; A2, bone margin en face submitted for decalcification; A3, cross sections of area of necrosis and underlying bone submitted for decalcification. CG/ewPerformed.[id number] 10:48:00* Test Item Value Reference Range Comments ACTIVATED CLOTTING TIME (BEAKER) (test udyc=369) 252 sec TESTED AT [address] [address] POCT-GLUCOSE [id number] 07:59:00* Test Item Value Reference Range Comments POC-GLUCOSE METER (BEAKER) (test gugp=4295) 167 mg/dL 70-110 TESTED AT [address] [address] ANAEROBIC [id number] 04:53:00* Test Item Value Reference Range Comments CULTURE (BEAKER) (test huzm=9552) No anaerobes isolated BASIC METABOLIC [id number] 02:21:00* Test Item Value Reference Range Comments SODIUM (BEAKER) (test xqyn=096) 137 meq/L 136-145 POTASSIUM (BEAKER) (test kxfe=931) 3.7 meq/L 3.5-5.1 CHLORIDE (BEAKER) (test zkeb=456) 101 meq/L 98-107 CO2 (BEAKER) (test mmud=551) 23 meq/L 22-29 BLOOD UREA NITROGEN (BEAKER) (test jime=137) 68 mg/dL 7-21 CREATININE (BEAKER) (test sdlh=148) 4.25 mg/dL 0.57-1.25 GLUCOSE RANDOM (BEAKER) (test llsv=071) 125 mg/dL 70-105 CALCIUM (BEAKER) (test pzun=263) 9.0 mg/dL 8.4-10.2 EGFR (BEAKER) (test dwzq=9394) 10 mL/min/1.73 sq m ESTIMATED GFR IS NOT ACCURATE CREATININE CLEARANCE IN PREDICTING GLOMERULAR FILTRATION RATE. ESTIMATED GFR IS NOT APPLICABLE FOR DIALYSIS PATIENTS. [id number] 02:11:00* Test Item Value Reference Range Comments PHOSPHORUS (BEAKER) (test karu=393) 4.9 mg/dL 2.3-4.7 CBC W/PLT COUNT & AUTO [id number] 01:52:00* Test Item Value Reference Range Comments WHITE BLOOD CELL COUNT (BEAKER) (test sbwh=051) 8.8 K/ L 3.5-10.5 RED BLOOD CELL COUNT (BEAKER) (test mqti=840) 3.01 M/ L 3.93-5.22 HEMOGLOBIN (BEAKER) (test qguj=187) 8.8 GM/DL 11.2-15.7 HEMATOCRIT (BEAKER) (test ccms=566) 26.7 % 34.1-44.9 MEAN CORPUSCULAR VOLUME (BEAKER) (test jviz=580) 88.7 fL 79.4-94.8 MEAN CORPUSCULAR HEMOGLOBIN (BEAKER) (test teum=977) 29.2 pg 25.6-32.2 MEAN CORPUSCULAR HEMOGLOBIN CONC (BEAKER) (test bmai=621) 33.0 GM/DL 32.2-35.5 RED CELL DISTRIBUTION WIDTH (BEAKER) (test gtit=743) 13.8 % 11.7-14.4 PLATELET COUNT (BEAKER) (test zimi=779) 158 K/CU MM 150-450 MEAN PLATELET VOLUME (BEAKER) (test dwsv=788) 11.2 fL 9.4-12.3 NUCLEATED RED BLOOD CELLS (BEAKER) (test xjil=327) 0 /100 WBC 0-0 NEUTROPHILS RELATIVE PERCENT (BEAKER) (test ohnm=450) 69 % LYMPHOCYTES RELATIVE PERCENT (BEAKER) (test znoh=772) 20 % MONOCYTES RELATIVE PERCENT (BEAKER) (test orfm=353) 7 % EOSINOPHILS RELATIVE PERCENT (BEAKER) (test jqoh=211) 3 % BASOPHILS RELATIVE PERCENT (BEAKER) (test sdlz=159) 0 % NEUTROPHILS ABSOLUTE COUNT (BEAKER) (test jqbg=577) 6.10 K/ L 1.56-6.13 LYMPHOCYTES ABSOLUTE COUNT (BEAKER) (test kasz=106) 1.73 K/ L 1.18-3.74 MONOCYTES ABSOLUTE COUNT (BEAKER) (test ejti=754) 0.63 K/ L 0.24-0.36 EOSINOPHILS ABSOLUTE COUNT (BEAKER) (test ylio=403) 0.26 K/ L 0.04-0.36 BASOPHILS ABSOLUTE COUNT (BEAKER) (test ikvj=808) 0.02 K/ L 0.01-0.08 IMMATURE GRANULOCYTES-RELATIVE PERCENT (BEAKER) (test dvkg=3609) 1 % 0-1 POCT-GLUCOSE [id number] 21:27:00* Test Item Value Reference Range Comments POC-GLUCOSE METER (BEAKER) (test gebz=1796) 146 mg/dL 70-110 TESTED AT [place] [address] SPIN/CONCENTRATION [id number] 17:56:00* Test Item Value Reference Range Comments CONCENTRATION CHARGED (BEAKER) (test ddgf=8524) Done POCT-GLUCOSE [id number] 17:37:00* Test Item Value Reference Range Comments POC-GLUCOSE METER (BEAKER) (test hhqa=8882) 134 mg/dL 70-110 TESTED AT [place] [address] SURGICALLY OBTAINED CULTURE + GRAM [id number] 16:54:00* Test Item Value Reference Range Comments CULTURE (BEAKER) (test msjl=7324) Amikacin (test code=1) Aztreonam (test code=32) Cefepime (test code=51) Cefoxitin (test code=68) Ceftazidime (test code=27) Ceftriaxone (test code=52) Ertapenem (test code=38) Gentamicin (test code=18) Levofloxacin (test code=22) Meropenem (test code=34) Nitrofurantoin (test code=23) Tetracycline (test code=2) Tobramycin (test code=25) Trimethoprim + Sulfamethoxazole (test code=47) CULTURE (BEAKER) (test obiy=6125) 1+ Serratia marcescens CULTURE (BEAKER) (test jcbr=5292) <1+ Diphtheroid CULTURE (BEAKER) (test jwyp=7876) <1+ Diphtheroidof a second type GRAM STAIN RESULT (BEAKER) (test vgjl=1411) <1+ WBCs GRAM STAIN RESULT (BEAKER) (test whpu=369697) No organisms seen POCT-GLUCOSE [id number] 12:56:00* Test Item Value Reference Range Comments POC-GLUCOSE METER (BEAKER) (test ybyb=9486) 207 mg/dL 70-110 TESTED AT [facility] [address] [facility] [address] [id number] 12:34:00* Test Item Value Reference Range Comments MAGNESIUM (BEAKER) (test qvyl=783) 1.9 mg/dL 1.6-2.6 Call lab to add to blood sent this AM. Downtime please. Call me if result is abn ormal. Do not stick patient again now just for this. If unable to do downtime, then add this to labs in AM tomorrow. Bijan Adhikari MD [phone]. Th ank you.POCT-GLUCOSE [id number] 07:30:00* Test Item Value Reference Range Comments POC-GLUCOSE METER (BEAKER) (test tkqz=1117) 136 mg/dL 70-110 TESTED AT [facility] [address] [facility] [address] BASIC METABOLIC [id number] 07:01:00* Test Item Value Reference Range Comments SODIUM (BEAKER) (test imer=780) 134 meq/L 136-145 POTASSIUM (BEAKER) (test hola=874) 3.9 meq/L 3.5-5.1 CHLORIDE (BEAKER) (test zgiw=173) 101 meq/L 98-107 CO2 (BEAKER) (test nwhi=416) 22 meq/L 22-29 BLOOD UREA NITROGEN (BEAKER) (test mxvk=704) 63 mg/dL 7-21 CREATININE (BEAKER) (test ocyb=891) 4.09 mg/dL 0.57-1.25 GLUCOSE RANDOM (BEAKER) (test jmqi=992) 115 mg/dL 70-105 CALCIUM (BEAKER) (test qdom=740) 8.8 mg/dL 8.4-10.2 EGFR (BEAKER) (test iywl=0614) 11 mL/min/1.73 sq m ESTIMATED GFR IS NOT ACCURATE CREATININE CLEARANCE IN PREDICTING GLOMERULAR FILTRATION RATE. ESTIMATED GFR IS NOT APPLICABLE FOR DIALYSIS PATIENTS. [id number] 06:48:00* Test Item Value Reference Range Comments PARTIAL THROMBOPLASTIN TIME (BEAKER) (test ctmb=011) 109.5 seconds 22.5-36.0 CBC W/PLT COUNT & AUTO [id number] 06:01:00* Test Item Value Reference Range Comments WHITE BLOOD CELL COUNT (BEAKER) (test qiyh=957) 8.8 K/ L 3.5-10.5 RED BLOOD CELL COUNT (BEAKER) (test erjc=259) 3.07 M/ L 3.93-5.22 HEMOGLOBIN (BEAKER) (test mdgx=132) 8.9 GM/DL 11.2-15.7 HEMATOCRIT (BEAKER) (test pppm=505) 27.3 % 34.1-44.9 MEAN CORPUSCULAR VOLUME (BEAKER) (test mrxu=944) 88.9 fL 79.4-94.8 MEAN CORPUSCULAR HEMOGLOBIN (BEAKER) (test ozlw=648) 29.0 pg 25.6-32.2 MEAN CORPUSCULAR HEMOGLOBIN CONC (BEAKER) (test bvfj=334) 32.6 GM/DL 32.2-35.5 RED CELL DISTRIBUTION WIDTH (BEAKER) (test jamq=597) 13.7 % 11.7-14.4 PLATELET COUNT (BEAKER) (test ynar=906) 151 K/CU MM 150-450 MEAN PLATELET VOLUME (BEAKER) (test dewg=708) 11.1 fL 9.4-12.3 NUCLEATED RED BLOOD CELLS (BEAKER) (test qyas=305) 0 /100 WBC 0-0 NEUTROPHILS RELATIVE PERCENT (BEAKER) (test pumq=443) 74 % LYMPHOCYTES RELATIVE PERCENT (BEAKER) (test uujq=802) 16 % MONOCYTES RELATIVE PERCENT (BEAKER) (test kdav=961) 7 % EOSINOPHILS RELATIVE PERCENT (BEAKER) (test yswe=471) 3 % BASOPHILS RELATIVE PERCENT (BEAKER) (test dzfv=245) 0 % NEUTROPHILS ABSOLUTE COUNT (BEAKER) (test zdis=041) 6.49 K/ L 1.56-6.13 LYMPHOCYTES ABSOLUTE COUNT (BEAKER) (test vspg=115) 1.42 K/ L 1.18-3.74 MONOCYTES ABSOLUTE COUNT (BEAKER) (test nvkf=264) 0.60 K/ L 0.24-0.36 EOSINOPHILS ABSOLUTE COUNT (BEAKER) (test puez=595) 0.23 K/ L 0.04-0.36 BASOPHILS ABSOLUTE COUNT (BEAKER) (test tiad=707) 0.03 K/ L 0.01-0.08 IMMATURE GRANULOCYTES-RELATIVE PERCENT (BEAKER) (test vzhl=5213) 0 % 0-1 POCT-GLUCOSE [id number] 21:41:00* Test Item Value Reference Range Comments POC-GLUCOSE METER (BEAKER) (test eriq=0881) 260 mg/dL 70-110 TESTED AT [address] [address] POCT-GLUCOSE [id number] 17:30:00* Test Item Value Reference Range Comments POC-GLUCOSE METER (BEAKER) (test cjig=2633) 109 mg/dL 70-110 TESTED AT [address] [address] POCT-GLUCOSE [id number] 11:53:00* Test Item Value Reference Range Comments POC-GLUCOSE METER (BEAKER) (test qsru=2601) 209 mg/dL 70-110 TESTED AT [address] [address] POCT-GLUCOSE [id number] 08:08:00* Test Item Value Reference Range Comments POC-GLUCOSE METER (BEAKER) (test gqbi=9315) 132 mg/dL 70-110 TESTED AT [address] [address] BASIC METABOLIC [id number] 04:28:00* Test Item Value Reference Range Comments SODIUM (BEAKER) (test cdlf=426) 133 meq/L 136-145 POTASSIUM (BEAKER) (test zxqb=151) 3.6 meq/L 3.5-5.1 CHLORIDE (BEAKER) (test ighh=435) 100 meq/L 98-107 CO2 (BEAKER) (test kjyi=764) 22 meq/L 22-29 BLOOD UREA NITROGEN (BEAKER) (test ekyv=416) 62 mg/dL 7-21 CREATININE (BEAKER) (test fvsp=229) 3.99 mg/dL 0.57-1.25 GLUCOSE RANDOM (BEAKER) (test odbc=302) 126 mg/dL 70-105 CALCIUM (BEAKER) (test houx=301) 8.9 mg/dL 8.4-10.2 EGFR (BEAKER) (test jmrr=9793) 11 mL/min/1.73 sq m ESTIMATED GFR IS NOT ACCURATE CREATININE CLEARANCE IN PREDICTING GLOMERULAR FILTRATION RATE. ESTIMATED GFR IS NOT APPLICABLE FOR DIALYSIS PATIENTS. [id number] 03:40:00* Test Item Value Reference Range Comments PARTIAL THROMBOPLASTIN TIME (BEAKER) (test xbnn=644) 85.9 seconds 22.5-36.0 CBC W/PLT COUNT & AUTO [id number] 03:23:00* Test Item Value Reference Range Comments WHITE BLOOD CELL COUNT (BEAKER) (test ofmu=331) 8.5 K/ L 3.5-10.5 RED BLOOD CELL COUNT (BEAKER) (test idnq=852) 3.21 M/ L 3.93-5.22 HEMOGLOBIN (BEAKER) (test ilah=149) 9.4 GM/DL 11.2-15.7 HEMATOCRIT (BEAKER) (test wzuf=889) 28.4 % 34.1-44.9 MEAN CORPUSCULAR VOLUME (BEAKER) (test slsk=670) 88.5 fL 79.4-94.8 MEAN CORPUSCULAR HEMOGLOBIN (BEAKER) (test ahrk=401) 29.3 pg 25.6-32.2 MEAN CORPUSCULAR HEMOGLOBIN CONC (BEAKER) (test bade=939) 33.1 GM/DL 32.2-35.5 RED CELL DISTRIBUTION WIDTH (BEAKER) (test ddpd=117) 13.9 % 11.7-14.4 PLATELET COUNT (BEAKER) (test lgup=140) 142 K/CU MM 150-450 MEAN PLATELET VOLUME (BEAKER) (test pnfi=212) 11.0 fL 9.4-12.3 NUCLEATED RED BLOOD CELLS (BEAKER) (test shcy=889) 0 /100 WBC 0-0 NEUTROPHILS RELATIVE PERCENT (BEAKER) (test wxpi=105) 66 % LYMPHOCYTES RELATIVE PERCENT (BEAKER) (test ymoa=590) 23 % MONOCYTES RELATIVE PERCENT (BEAKER) (test bczs=215) 9 % EOSINOPHILS RELATIVE PERCENT (BEAKER) (test baub=765) 2 % BASOPHILS RELATIVE PERCENT (BEAKER) (test uqae=685) 0 % NEUTROPHILS ABSOLUTE COUNT (BEAKER) (test hahe=088) 5.62 K/ L 1.56-6.13 LYMPHOCYTES ABSOLUTE COUNT (BEAKER) (test sdns=784) 1.97 K/ L 1.18-3.74 MONOCYTES ABSOLUTE COUNT (BEAKER) (test aaxh=773) 0.73 K/ L 0.24-0.36 EOSINOPHILS ABSOLUTE COUNT (BEAKER) (test uoss=456) 0.13 K/ L 0.04-0.36 BASOPHILS ABSOLUTE COUNT (BEAKER) (test anrp=367) 0.03 K/ L 0.01-0.08 IMMATURE GRANULOCYTES-RELATIVE PERCENT (BEAKER) (test ahex=8059) 0 % 0-1 POCT-GLUCOSE [id number] 22:42:00* Test Item Value Reference Range Comments POC-GLUCOSE METER (BEAKER) (test xehu=7844) 214 mg/dL 70-110 TESTED AT [place] [address] [id number] 19:07:00* Test Item Value Reference Range Comments PARTIAL THROMBOPLASTIN TIME (BEAKER) (test yynj=509) 67.4 seconds 22.5-36.0 POCT-GLUCOSE [id number] 18:26:00* Test Item Value Reference Range Comments POC-GLUCOSE METER (BEAKER) (test nkoy=6634) 109 mg/dL 70-110 TESTED AT [place] [address] POCT-GLUCOSE [id number] 12:37:00* Test Item Value Reference Range Comments POC-GLUCOSE METER (BEAKER) (test xkch=6823) 275 mg/dL 70-110 TESTED AT [place] [address] [id number] 09:59:00* Test Item Value Reference Range Comments PARTIAL THROMBOPLASTIN TIME (BEAKER) (test orsn=321) 40.4 seconds 22.5-36.0 BASIC METABOLIC [id number] 08:13:00* Test Item Value Reference Range Comments SODIUM (BEAKER) (test jvtj=311) 136 meq/L 136-145 POTASSIUM (BEAKER) (test ijyz=860) 4.1 meq/L 3.5-5.1 CHLORIDE (BEAKER) (test ympe=989) 103 meq/L 98-107 CO2 (BEAKER) (test yvwk=016) 22 meq/L 22-29 BLOOD UREA NITROGEN (BEAKER) (test hviz=927) 57 mg/dL 7-21 CREATININE (BEAKER) (test jpbd=122) 3.55 mg/dL 0.57-1.25 GLUCOSE RANDOM (BEAKER) (test fnkg=863) 151 mg/dL 70-105 CALCIUM (BEAKER) (test fcpd=031) 9.2 mg/dL 8.4-10.2 EGFR (BEAKER) (test liyy=7221) 13 mL/min/1.73 sq m ESTIMATED GFR IS NOT ACCURATE CREATININE CLEARANCE IN PREDICTING GLOMERULAR FILTRATION RATE. ESTIMATED GFR IS NOT APPLICABLE FOR DIALYSIS PATIENTS. POCT-GLUCOSE [id number] 08:03:00* Test Item Value Reference Range Comments POC-GLUCOSE METER (BEAKER) (test zyfk=0749) 150 mg/dL 70-110 TESTED AT [facility] [address] [facility] [address] CBC W/PLT COUNT & AUTO [id number] 07:10:00* Test Item Value Reference Range Comments WHITE BLOOD CELL COUNT (BEAKER) (test zkzr=860) 8.5 K/ L 3.5-10.5 RED BLOOD CELL COUNT (BEAKER) (test eppm=718) 3.32 M/ L 3.93-5.22 HEMOGLOBIN (BEAKER) (test lprt=501) 9.7 GM/DL 11.2-15.7 HEMATOCRIT (BEAKER) (test ujpz=709) 29.5 % 34.1-44.9 MEAN CORPUSCULAR VOLUME (BEAKER) (test fmzg=604) 88.9 fL 79.4-94.8 MEAN CORPUSCULAR HEMOGLOBIN (BEAKER) (test snhu=238) 29.2 pg 25.6-32.2 MEAN CORPUSCULAR HEMOGLOBIN CONC (BEAKER) (test aias=914) 32.9 GM/DL 32.2-35.5 RED CELL DISTRIBUTION WIDTH (BEAKER) (test aymg=081) 13.9 % 11.7-14.4 PLATELET COUNT (BEAKER) (test xsos=772) 152 K/CU MM 150-450 MEAN PLATELET VOLUME (BEAKER) (test pzas=158) 11.0 fL 9.4-12.3 NUCLEATED RED BLOOD CELLS (BEAKER) (test wamj=543) 0 /100 WBC 0-0 NEUTROPHILS RELATIVE PERCENT (BEAKER) (test ejun=083) 75 % LYMPHOCYTES RELATIVE PERCENT (BEAKER) (test skdk=266) 15 % MONOCYTES RELATIVE PERCENT (BEAKER) (test zxot=868) 7 % EOSINOPHILS RELATIVE PERCENT (BEAKER) (test affr=268) 3 % BASOPHILS RELATIVE PERCENT (BEAKER) (test iqpe=251) 0 % NEUTROPHILS ABSOLUTE COUNT (BEAKER) (test anev=543) 6.37 K/ L 1.56-6.13 LYMPHOCYTES ABSOLUTE COUNT (BEAKER) (test cbqa=332) 1.27 K/ L 1.18-3.74 MONOCYTES ABSOLUTE COUNT (BEAKER) (test owtf=669) 0.57 K/ L 0.24-0.36 EOSINOPHILS ABSOLUTE COUNT (BEAKER) (test iwwd=956) 0.25 K/ L 0.04-0.36 BASOPHILS ABSOLUTE COUNT (BEAKER) (test odpq=196) 0.03 K/ L 0.01-0.08 IMMATURE GRANULOCYTES-RELATIVE PERCENT (BEAKER) (test hwfn=3017) 1 % 0-1 [id number] 06:49:00* Test Item Value Reference Range Comments PARTIAL THROMBOPLASTIN TIME (BEAKER) (test vhgb=516) 114.9 seconds 22.5-36.0 POCT-GLUCOSE [id number] 06:14:00* Test Item Value Reference Range Comments POC-GLUCOSE METER (BEAKER) (test wejj=6068) 189 mg/dL 70-110 TESTED AT [address] [address] [id number] 23:16:00* Test Item Value Reference Range Comments PARTIAL THROMBOPLASTIN TIME (BEAKER) (test nseg=558) 60.8 seconds 22.5-36.0 POCT-GLUCOSE [id number] 17:48:00* Test Item Value Reference Range Comments POC-GLUCOSE METER (BEAKER) (test bjvb=3787) 177 mg/dL 70-110 TESTED AT [address] [address] POCT-GLUCOSE [id number] 14:29:00* Test Item Value Reference Range Comments POC-GLUCOSE METER (BEAKER) (test oeac=9513) 172 mg/dL 70-110 TESTED AT [place] [id number] [facility] [address] POCT-GLUCOSE [id number] 07:55:00* Test Item Value Reference Range Comments POC-GLUCOSE METER (BEAKER) (test jyzs=0723) 148 mg/dL 70-110 TESTED AT [address] [address] BASIC METABOLIC [id number] 07:28:00* Test Item Value Reference Range Comments SODIUM (BEAKER) (test hgoy=542) 136 meq/L 136-145 POTASSIUM (BEAKER) (test sbrp=896) 4.0 meq/L 3.5-5.1 CHLORIDE (BEAKER) (test nmsp=621) 103 meq/L 98-107 CO2 (BEAKER) (test jhpu=502) 22 meq/L 22-29 BLOOD UREA NITROGEN (BEAKER) (test uajk=515) 57 mg/dL 7-21 CREATININE (BEAKER) (test ksus=142) 3.67 mg/dL 0.57-1.25 GLUCOSE RANDOM (BEAKER) (test nmvv=344) 145 mg/dL 70-105 CALCIUM (BEAKER) (test vnrj=846) 8.9 mg/dL 8.4-10.2 EGFR (BEAKER) (test oeij=8728) 12 mL/min/1.73 sq m ESTIMATED GFR IS NOT ACCURATE CREATININE CLEARANCE IN PREDICTING GLOMERULAR FILTRATION RATE. ESTIMATED GFR IS NOT APPLICABLE FOR DIALYSIS PATIENTS. CBC W/PLT COUNT & AUTO [id number] 07:07:00* Test Item Value Reference Range Comments WHITE BLOOD CELL COUNT (BEAKER) (test eojl=860) 8.0 K/ L 3.5-10.5 RED BLOOD CELL COUNT (BEAKER) (test vzgo=132) 3.33 M/ L 3.93-5.22 HEMOGLOBIN (BEAKER) (test vgdx=923) 9.6 GM/DL 11.2-15.7 HEMATOCRIT (BEAKER) (test jkxx=736) 29.7 % 34.1-44.9 MEAN CORPUSCULAR VOLUME (BEAKER) (test esnt=053) 89.2 fL 79.4-94.8 MEAN CORPUSCULAR HEMOGLOBIN (BEAKER) (test vpnt=616) 28.8 pg 25.6-32.2 MEAN CORPUSCULAR HEMOGLOBIN CONC (BEAKER) (test chdi=493) 32.3 GM/DL 32.2-35.5 RED CELL DISTRIBUTION WIDTH (BEAKER) (test gusn=448) 13.9 % 11.7-14.4 PLATELET COUNT (BEAKER) (test akeo=783) 156 K/CU MM 150-450 MEAN PLATELET VOLUME (BEAKER) (test pdqd=091) 11.3 fL 9.4-12.3 NUCLEATED RED BLOOD CELLS (BEAKER) (test afss=151) 0 /100 WBC 0-0 NEUTROPHILS RELATIVE PERCENT (BEAKER) (test imsc=577) 69 % LYMPHOCYTES RELATIVE PERCENT (BEAKER) (test ywzz=991) 20 % MONOCYTES RELATIVE PERCENT (BEAKER) (test dqml=040) 7 % EOSINOPHILS RELATIVE PERCENT (BEAKER) (test xems=022) 4 % BASOPHILS RELATIVE PERCENT (BEAKER) (test gzou=613) 1 % NEUTROPHILS ABSOLUTE COUNT (BEAKER) (test brxa=891) 5.57 K/ L 1.56-6.13 LYMPHOCYTES ABSOLUTE COUNT (BEAKER) (test sdok=026) 1.57 K/ L 1.18-3.74 MONOCYTES ABSOLUTE COUNT (BEAKER) (test aooh=636) 0.55 K/ L 0.24-0.36 EOSINOPHILS ABSOLUTE COUNT (BEAKER) (test hyzl=512) 0.28 K/ L 0.04-0.36 BASOPHILS ABSOLUTE COUNT (BEAKER) (test ksxo=852) 0.04 K/ L 0.01-0.08 IMMATURE GRANULOCYTES-RELATIVE PERCENT (BEAKER) (test rloh=0912) 0 % 0-1 [id number] 01:14:00* Test Item Value Reference Range Comments PARTIAL THROMBOPLASTIN TIME (BEAKER) (test sbro=348) 97.7 seconds 22.5-36.0 POCT-GLUCOSE [id number] 21:26:00* Test Item Value Reference Range Comments POC-GLUCOSE METER (BEAKER) (test skwo=5165) 242 mg/dL 70-110 TESTED AT [facility] [address] [facility] [place] [address] RAD, CHEST, 2 [id number] 21:08:00Reason for exam:->dyspneaShould this be performed at the bedside?->YesFINAL REPORT Examination: Two view Chest X-ray. CLINICAL HISTORY: Dyspnea COMPARISON: 07/23/2016 The cardiac silhouette is within normal limits for size. There is atherosclerotic calcification of the aorta. The patient has undergone previous CABG. There is no focal consolidation, pleural effusion, pneumothorax or evidence of overt pulmonary edema. There is no acute bony abnormality. Signed: Anthony Haileepsienna Verified Date/Time: 03/27/2017 21:08:17 Reading Location: [address] Reading Room [id number] 17:57:00* Test Item Value Reference Range Comments PARTIAL THROMBOPLASTIN TIME (BEAKER) (test gaje=293) 86.6 seconds 22.5-36.0 POCT-GLUCOSE [id number] 17:37:00* Test Item Value Reference Range Comments POC-GLUCOSE METER (BEAKER) (test tkbv=9883) 303 mg/dL 70-110 TESTED AT [address] [address] HEMOGLOBIN [id number] 13:03:00* Test Item Value Reference Range Comments HEMOGLOBIN A1C (BEAKER) (test dpnw=860) 7.3 % 4.3-6.1 [id number] 12:04:00* Test Item Value Reference Range Comments PARTIAL THROMBOPLASTIN TIME (BEAKER) (test icww=035) 50.8 seconds 22.5-36.0 POCT-GLUCOSE [id number] 12:02:00* Test Item Value Reference Range Comments POC-GLUCOSE METER (BEAKER) (test ftcd=8732) 159 mg/dL 70-110 TESTED AT [address] [address] POCT-GLUCOSE [id number] 07:50:00* Test Item Value Reference Range Comments POC-GLUCOSE METER (BEAKER) (test azvk=3036) 88 mg/dL 70-110 TESTED AT [address] [address] POCT-GLUCOSE [id number] 06:28:00* Test Item Value Reference Range Comments POC-GLUCOSE METER (BEAKER) (test iutg=1451) 100 mg/dL 70-110 TESTED AT [facility] [address] [facility] [address] [id number] 06:26:00* Test Item Value Reference Range Comments FERRITIN (BEAKER) (test krzw=451) 776 ng/mL 5-275 IRON, TIBC, % SAT. (WITHOUT FERRITIN)2017-03-27 06:06:00* Test Item Value Reference Range Comments IRON (BEAKER) (test otdu=258) 46 ug/dL 40-160 TOTAL IRON BINDING CAPACITY (BEAKER) (test rrdq=118) 214 ug/dL 250-450 IRON % SATURATION (2) (BEAKER) (test cwlq=0027) 21 % 20-55 B-TYPE NATRIURETIC FACTOR (BNP)2017-03-27 05:13:00* Test Item Value Reference Range Comments B-TYPE NATRIURETIC PEPTIDE (BEAKER) (test zpkd=093) 543 pg/mL 0-100 BASIC METABOLIC [id number] 05:10:00* Test Item Value Reference Range Comments SODIUM (BEAKER) (test xibx=920) 138 meq/L 136-145 POTASSIUM (BEAKER) (test qjtu=728) 3.8 meq/L 3.5-5.1 CHLORIDE (BEAKER) (test cvpp=065) 107 meq/L 98-107 CO2 (BEAKER) (test qwzm=976) 19 meq/L 22-29 BLOOD UREA NITROGEN (BEAKER) (test xwfq=029) 52 mg/dL 7-21 CREATININE (BEAKER) (test sfcj=780) 3.29 mg/dL 0.57-1.25 GLUCOSE RANDOM (BEAKER) (test iiee=655) 97 mg/dL 70-105 CALCIUM (BEAKER) (test bszz=056) 9.0 mg/dL 8.4-10.2 EGFR (BEAKER) (test lktv=0557) 14 mL/min/1.73 sq m ESTIMATED GFR IS NOT ACCURATE CREATININE CLEARANCE IN PREDICTING GLOMERULAR FILTRATION RATE. ESTIMATED GFR IS NOT APPLICABLE FOR DIALYSIS PATIENTS. [id number] 05:06:00* Test Item Value Reference Range Comments PARTIAL THROMBOPLASTIN TIME (BEAKER) (test lqdj=527) 60.2 seconds 22.5-36.0 CBC W/PLT COUNT & AUTO [id number] 04:55:00* Test Item Value Reference Range Comments WHITE BLOOD CELL COUNT (BEAKER) (test xece=760) 7.1 K/ L 3.5-10.5 RED BLOOD CELL COUNT (BEAKER) (test omox=506) 3.24 M/ L 3.93-5.22 HEMOGLOBIN (BEAKER) (test zics=127) 9.5 GM/DL 11.2-15.7 HEMATOCRIT (BEAKER) (test xqih=277) 28.8 % 34.1-44.9 MEAN CORPUSCULAR VOLUME (BEAKER) (test zqtc=143) 88.9 fL 79.4-94.8 MEAN CORPUSCULAR HEMOGLOBIN (BEAKER) (test dfhg=135) 29.3 pg 25.6-32.2 MEAN CORPUSCULAR HEMOGLOBIN CONC (BEAKER) (test bhdg=017) 33.0 GM/DL 32.2-35.5 RED CELL DISTRIBUTION WIDTH (BEAKER) (test vtsu=470) 13.8 % 11.7-14.4 PLATELET COUNT (BEAKER) (test mczt=732) 138 K/CU MM 150-450 MEAN PLATELET VOLUME (BEAKER) (test mvjc=440) 11.0 fL 9.4-12.3 NUCLEATED RED BLOOD CELLS (BEAKER) (test jmth=112) 0 /100 WBC 0-0 NEUTROPHILS RELATIVE PERCENT (BEAKER) (test nzif=490) 67 % LYMPHOCYTES RELATIVE PERCENT (BEAKER) (test bxbi=128) 22 % MONOCYTES RELATIVE PERCENT (BEAKER) (test lfzy=266) 8 % EOSINOPHILS RELATIVE PERCENT (BEAKER) (test ewgk=030) 3 % BASOPHILS RELATIVE PERCENT (BEAKER) (test rgdv=699) 0 % NEUTROPHILS ABSOLUTE COUNT (BEAKER) (test rtmd=390) 4.72 K/ L 1.56-6.13 LYMPHOCYTES ABSOLUTE COUNT (BEAKER) (test qljb=262) 1.52 K/ L 1.18-3.74 MONOCYTES ABSOLUTE COUNT (BEAKER) (test zddb=494) 0.55 K/ L 0.24-0.36 EOSINOPHILS ABSOLUTE COUNT (BEAKER) (test dufn=104) 0.23 K/ L 0.04-0.36 BASOPHILS ABSOLUTE COUNT (BEAKER) (test fbkx=778) 0.03 K/ L 0.01-0.08 IMMATURE GRANULOCYTES-RELATIVE PERCENT (BEAKER) (test zasv=1435) 0 % 0-1 [id number] 21:52:00* Test Item Value Reference Range Comments PARTIAL THROMBOPLASTIN TIME (BEAKER) (test hnlb=072) 44.9 seconds 22.5-36.0 POCT-GLUCOSE [id number] 21:13:00* Test Item Value Reference Range Comments POC-GLUCOSE METER (BEAKER) (test deie=8514) 144 mg/dL 70-110 TESTED AT [facility] [address] [facility] [address] POCT-GLUCOSE [id number] 17:19:00* Test Item Value Reference Range Comments POC-GLUCOSE METER (AKER) (test ixzy=8615) 146 mg/dL 70-110 TESTED AT [address] [address] T4, [id number] 15:49:00* Test Item Value Reference Range Comments FREE T4 (BEAKER) (test blvj=067) 1.04 ng/dL 0.70-1.48 HEMOGLOBIN [id number] 14:46:00* Test Item Value Reference Range Comments HEMOGLOBIN A1C (BEAKER) (test yijl=908) 7.4 % 4.3-6.1 TSH/FREE T4 IF [id number] 13:59:00* Test Item Value Reference Range Comments THYROID STIMULATING HORMONE (BEAKER) (test zzqt=094) 5.11 uIU/mL 0.35-4.94 LIPID [id number] 13:28:00* Test Item Value Reference Range Comments TRIGLYCERIDES (BEAKER) (test dhrt=865) 98 mg/dL Specimen slightly hemolyzed CHOLESTEROL (BEAKER) (test jmgb=954) 107 mg/dL Specimen slightly hemolyzed HDL CHOLESTEROL (BEAKER) (test yvrl=071) 45 mg/dL LDL CHOLESTEROL CALCULATED (BEAKER) (test yygo=285) 42 mg/dL Triglyceride Reference Range: Low Risk <150 Borderline 150-199 High Risk 200-499 Very High Risk >=500Cholesterol Reference Range: Low Risk <200 Borderline 200-239 High Risk >240HDL Cholesterol Reference Range: Low Risk >=60 High Risk <40LDL Cholesterol Reference Range: Optimal <100 Near Optimal 100-129 Borderline 130-159 High 160-189 Very High >=190 POCT- GLUCOSE [id number] 11:15:00* Test Item Value Reference Range Comments POC-GLUCOSE METER (BEAKER) (test uxuq=9477) 85 mg/dL 70-110 TESTED AT [address] [address] BASIC METABOLIC [id number] 09:11:00* Test Item Value Reference Range Comments SODIUM (BEAKER) (test ugsn=062) 139 meq/L 136-145 POTASSIUM (BEAKER) (test drhw=375) 3.9 meq/L 3.5-5.1 CHLORIDE (BEAKER) (test dsle=425) 111 meq/L 98-107 CO2 (BEAKER) (test envm=164) 19 meq/L 22-29 BLOOD UREA NITROGEN (BEAKER) (test fyuv=065) 49 mg/dL 7-21 CREATININE (BEAKER) (test yowy=315) 3.03 mg/dL 0.57-1.25 GLUCOSE RANDOM (BEAKER) (test jkqq=435) 47 mg/dL 70-105 CALCIUM (BEAKER) (test gely=206) 8.3 mg/dL 8.4-10.2 EGFR (BEAKER) (test dnxv=1044) 15 mL/min/1.73 sq m ESTIMATED GFR IS NOT ACCURATE CREATININE CLEARANCE IN PREDICTING GLOMERULAR FILTRATION RATE. ESTIMATED GFR IS NOT APPLICABLE FOR DIALYSIS PATIENTS. POCT-GLUCOSE [id number] 07:33:00* Test Item Value Reference Range Comments POC-GLUCOSE METER (BEAKER) (test ryhz=6187) 75 mg/dL 70-110 TESTED AT [address] [address] CBC W/PLT COUNT & AUTO [id number] 06:50:00* Test Item Value Reference Range Comments WHITE BLOOD CELL COUNT (BEAKER) (test jbbk=891) 8.6 K/ L 3.5-10.5 RED BLOOD CELL COUNT (BEAKER) (test rykw=937) 3.09 M/ L 3.93-5.22 HEMOGLOBIN (BEAKER) (test kner=061) 8.9 GM/DL 11.2-15.7 HEMATOCRIT (BEAKER) (test zjyu=410) 27.8 % 34.1-44.9 MEAN CORPUSCULAR VOLUME (BEAKER) (test crgi=808) 90.0 fL 79.4-94.8 MEAN CORPUSCULAR HEMOGLOBIN (BEAKER) (test caqf=444) 28.8 pg 25.6-32.2 MEAN CORPUSCULAR HEMOGLOBIN CONC (BEAKER) (test seah=831) 32.0 GM/DL 32.2-35.5 RED CELL DISTRIBUTION WIDTH (BEAKER) (test fmor=002) 14.1 % 11.7-14.4 PLATELET COUNT (BEAKER) (test puyb=887) 136 K/CU MM 150-450 MEAN PLATELET VOLUME (BEAKER) (test aktk=195) 11.0 fL 9.4-12.3 NUCLEATED RED BLOOD CELLS (BEAKER) (test djkq=605) 0 /100 WBC 0-0 NEUTROPHILS RELATIVE PERCENT (BEAKER) (test dxkl=384) 58 % LYMPHOCYTES RELATIVE PERCENT (BEAKER) (test unir=034) 30 % MONOCYTES RELATIVE PERCENT (BEAKER) (test cetf=033) 9 % EOSINOPHILS RELATIVE PERCENT (BEAKER) (test yarl=154) 3 % BASOPHILS RELATIVE PERCENT (BEAKER) (test nuta=731) 0 % NEUTROPHILS ABSOLUTE COUNT (BEAKER) (test lvwo=430) 4.94 K/ L 1.56-6.13 LYMPHOCYTES ABSOLUTE COUNT (BEAKER) (test jqsb=961) 2.58 K/ L 1.18-3.74 MONOCYTES ABSOLUTE COUNT (BEAKER) (test bxtq=789) 0.75 K/ L 0.24-0.36 EOSINOPHILS ABSOLUTE COUNT (BEAKER) (test dxvw=661) 0.27 K/ L 0.04-0.36 BASOPHILS ABSOLUTE COUNT (BEAKER) (test yrdr=319) 0.03 K/ L 0.01-0.08 IMMATURE GRANULOCYTES-RELATIVE PERCENT (BEAKER) (test pnvo=5014) 0 % 0-1 POCT-GLUCOSE [id number] 01:59:00* Test Item Value Reference Range Comments POC-GLUCOSE METER (BEAKER) (test eybm=2161) 89 mg/dL 70-110 TESTED AT [address] [address] POCT-GLUCOSE [id number] 01:59:00* Test Item Value Reference Range Comments POC-GLUCOSE METER (BEAKER) (test ccdq=2800) 166 mg/dL 70-110 TESTED AT [address] [address] B-TYPE NATRIURETIC FACTOR (BNP)2017-03-25 19:07:00* Test Item Value Reference Range Comments B-TYPE NATRIURETIC PEPTIDE (BEAKER) (test vlfd=793) 1180 pg/mL 0-100 BASIC METABOLIC [id number] 19:00:00* Test Item Value Reference Range Comments SODIUM (BEAKER) (test hnfm=282) 139 meq/L 136-145 POTASSIUM (BEAKER) (test fabt=946) 4.7 meq/L 3.5-5.1 CHLORIDE (BEAKER) (test fdlm=078) 110 meq/L 98-107 CO2 (BEAKER) (test hezj=523) 18 meq/L 22-29 BLOOD UREA NITROGEN (BEAKER) (test bnjr=362) 48 mg/dL 7-21 CREATININE (BEAKER) (test mpgd=480) 3.14 mg/dL 0.57-1.25 GLUCOSE RANDOM (BEAKER) (test bvoj=282) 217 mg/dL 70-105 CALCIUM (BEAKER) (test uovx=617) 8.7 mg/dL 8.4-10.2 EGFR (BEAKER) (test beet=3372) 14 mL/min/1.73 sq m ESTIMATED GFR IS NOT ACCURATE CREATININE CLEARANCE IN PREDICTING GLOMERULAR FILTRATION RATE. ESTIMATED GFR IS NOT APPLICABLE FOR DIALYSIS PATIENTS. [id number] 18:49:00* Test Item Value Reference Range Comments PROTIME (BEAKER) (test hvfp=204) 14.6 seconds 11.7-14.7 INR (BEAKER) (test wrbt=287) 1.2 <=5.9 PARTIAL THROMBOPLASTIN TIME (BEAKER) (test gngv=105) 34.0 seconds 22.5-36.0 RECOMMENDED COUMADIN/WARFARIN INR THERAPY RANGESSTANDARD DOSE: 2.0 - 3.0 Inclu abigail: PROPHYLAXIS for venous thrombosis, systemic embolization; TREATMENT for adriana ous thrombosis and/or pulmonary embolus.HIGH RISK: Target INR is 2.5-3.5 for pat ients with mechanical heart valves.CBC W/PLT COUNT & AUTO [id number] 18:42:00* Test Item Value Reference Range Comments WHITE BLOOD CELL COUNT (BEAKER) (test iqgq=613) 10.3 K/ L 3.5-10.5 RED BLOOD CELL COUNT (BEAKER) (test fudx=688) 3.04 M/ L 3.93-5.22 HEMOGLOBIN (BEAKER) (test asrz=812) 9.0 GM/DL 11.2-15.7 HEMATOCRIT (BEAKER) (test wsde=377) 27.6 % 34.1-44.9 MEAN CORPUSCULAR VOLUME (BEAKER) (test rqog=775) 90.8 fL 79.4-94.8 MEAN CORPUSCULAR HEMOGLOBIN (BEAKER) (test rhij=309) 29.6 pg 25.6-32.2 MEAN CORPUSCULAR HEMOGLOBIN CONC (BEAKER) (test fgta=805) 32.6 GM/DL 32.2-35.5 RED CELL DISTRIBUTION WIDTH (BEAKER) (test orfb=960) 14.2 % 11.7-14.4 PLATELET COUNT (BEAKER) (test geke=474) 137 K/CU MM 150-450 MEAN PLATELET VOLUME (BEAKER) (test utij=642) 10.8 fL 9.4-12.3 NUCLEATED RED BLOOD CELLS (BEAKER) (test hsuu=713) 0 /100 WBC 0-0 NEUTROPHILS RELATIVE PERCENT (BEAKER) (test iwic=441) 74 % LYMPHOCYTES RELATIVE PERCENT (BEAKER) (test jzdt=790) 16 % MONOCYTES RELATIVE PERCENT (BEAKER) (test zvjn=074) 7 % EOSINOPHILS RELATIVE PERCENT (BEAKER) (test ezww=728) 2 % BASOPHILS RELATIVE PERCENT (BEAKER) (test lkhb=020) 1 % NEUTROPHILS ABSOLUTE COUNT (BEAKER) (test hfra=450) 7.61 K/ L 1.56-6.13 LYMPHOCYTES ABSOLUTE COUNT (BEAKER) (test dhcn=998) 1.67 K/ L 1.18-3.74 MONOCYTES ABSOLUTE COUNT (BEAKER) (test agwt=150) 0.69 K/ L 0.24-0.36 EOSINOPHILS ABSOLUTE COUNT (BEAKER) (test kxsj=934) 0.24 K/ L 0.04-0.36 BASOPHILS ABSOLUTE COUNT (BEAKER) (test tqun=942) 0.05 K/ L 0.01-0.08 IMMATURE GRANULOCYTES-RELATIVE PERCENT (BEAKER) (test thxf=2458) 0 % 0-1
--- OUTSIDE RECORDS SUMMARY | 2019-06-16 12:44 | XMS REPORT | Summary of Care ---
Author Author [facility] Organization [facility] Address Unknown Phone Unavailable Care Team Providers Care Shipping Inspector Name Role Phone System, Pcp Not In Unavailable Billy Whalen PCP Reason for Visit * Reason Comments Follow Up Foot Ulcer Wound Check Encounter Details Care Team Description Date Type Department Forrest Narayan DPM [address] [place] [id number] Follow Up ; Foot Ulcer; Wound Check 01/13/2019 Office Visit [facility] Vascular Surgery [address] [place] [phone] Allergies Comments Active Allergy Reactions Severity Noted Date Clindamycin/Lincomycin Hives, 08/29/2015 Itching Levaquin Itching, Rash 08/29/2015 Penicillins Hives 03/29/2015 Tricor Hives 08/29/2015 documented as of this encounter (statuses as of 01/30/2019) Medications End Date Status Medication Sig Dispensed Refills Start Date Active Levothyroxine Sodium 25 Take 50 mcg 0 MCG CAPS by mouth daily. Active aspirin 81 MG tablet Take 81 mg by 0 mouth daily. Active ferrous sulfate 325 (65 Take 325 mg 0 FE) MG tablet by mouth daily. Active simvastatin (ZOCOR) 40 MG TAKE 1 TABLET 90 Tab 2 tablet BY MOUTH AT 7 BEDTIME Active LEVEMIR 100 UNIT/ML Inject 20 0 injection Units as 9 directed every morning. Active B Nhurgsn-C-Vptfm Acid Take by 0 (NEPHRO-THAD OR) mouth daily. Active carvedilol (COREG) 6.25 TAKE 1 TABLET 180 Tab 2 MG tablet BY MOUTH 9 TWICE A DAYTAKING METOPROLOL? CALLED N/A Active Prasugrel HCl (EFFIENT) Take 10 mg by 90 Tab 3 10 MG TABS mouth daily. 9 Active mupirocin (BACTROBAN) 2 % Apply on 1 Tube 2 ointment affected 9 daily. 01/13/2019 Discontinued mupirocin (BACTROBAN) 2 % Apply on 1 Tube 2 ointment affected 9 daily. documented as of this encounter (statuses as of 01/30/2019) Active Problems Problem Noted Date palntar fasciitis 10/26/2018 Plantar fasciitis of right foot 10/26/2018 [facility] 11/03/2017 Iron deficiency anemia 03/29/2015 Chronic systolic heart failure [facility]) 03/29/2015 Coronary arteriosclerosis in [place] artery 03/29/2015 Obesity 03/29/2015 Leg edema 03/29/2015 Peripheral vascular disease [facility]) 03/29/2015 Diabetes mellitus ([facility] 03/29/2015 Overview: Type II Angina pectoris [facility]) 03/29/2015 Homocystinemia [facility] 03/29/2015 Foot ulcer, left ([facility]) 03/29/2015 Carotid artery disease ([facility]) 03/29/2015 Chronic renal insufficiency 03/29/2015 Hx of cholecystectomy 03/29/2015 Hyperlipemia 03/29/2015 Hypertension 03/29/2015 Hyperlipidemia Hypertension Coronary heart disease Peripheral vascular disease [facility]) Diabetes mellitus [facility]) Carotid artery disease ([facility] documented as of this encounter (statuses as of 01/30/2019) Social History Date Tobacco Use Types Packs/Day Years Used Never Smoker Smokeless Tobacco: Never Used Drinks/Week oz/Week Comments Alcohol Use No Sex Assigned at Date Recorded Not on file Industry Job Start Date Occupation Not on file Not on file Not on file Travel End Travel History Travel Start No recent travel history available. documented as of this encounter Last Filed Vital Signs Reading Time Taken Comments Vital Sign 122/63 01/13/2019 11:01 AM CDT Blood Pressure 86 01/13/2019 11:01 AM CDT Pulse - - Temperature - - Respiratory Rate - - Oxygen Saturation - - Inhaled Oxygen Concentration - - Weight - - Height - - Body Mass Index documented in this encounter Progress Notes * Forrest Narayan DPM - 01/13/2019 10:00 AM CDT Subjective: Amy Baltazar is a 74 y.o. female that presents today for follow-up evaluation of chronic stage 2-3 ulcer right heel 3 cm X 3 cm, which she has been using Santyl and home health wound care. Also presents with venous stasis ulcer excoriations medial ankle, left No new complaints. she denies any nausea, vomiting, fever, or chills. Objective: BP 122/63 | Pulse 86 General: Patient is alert, responsive, NAD Lower Ext: Derm: chronic stage 2-3 ulcer right heel 3 cm X 3 cm, which she has been us ing Santyl and home health wound care. Also presents with venous stasis ulcer excoriations medial ankle, left Vasc: Pedal pulses are not palpable bilateral lower extremity. CFT < 3 sec bilateral. Neuro: Protective threshold is not intact bilateral. DPN, bilateral Mus/Ske: Muscle strength 5/5 bilateral. Range of motion within normal limit s. Psych: Mood normal, affect normal, concentration normal Assessment and Plan: DM TYpe II DPN, bilateral PAD Bilateral chronic stage 2-3 ulcer right heel 3 cm X 3 cm, which she has been using Santyl and home health wound care. Also presents with venous stasis ulcer excoriations medial ankle, left Plan: Sharp debridement ofchronic stage 2-3 ulcer right heel 3 cm X 3 cm, which she has been using Santyl and home health wound care. Sharp debridement of venous stasis ulcer excoriations medial ankle, left Rx Gabapentin for painful DPN, bilateral Irrigation VASHE, Saline, and Mupirocin and sterile dressing to the ulcer site, left foot Follow up 3 months for diabetic foot care Intermediate visit performed Rx Gabapentin for painful DPN, bilateral Irrigation VASHE, Saline, and Mupirocin and sterile dressing to the ulcer site, left foot Follow up 3 weeks for diabetic foot care Intermediate visit performed Findings were discussed with the patient and all questions were answered. Forrest Narayan DPM Ice Scraper [facility] Department of Surgery Division of Vascular Surgery and Endovascular Therapy documented in this encounter Plan of Treatment Care Team Description Date Type Specialty Forrest Narayan, YOGI [address] [facility] [place] [address] [place] [address] 02/03/2019 Office Visit Vascular Surgery Order Schedule Name Type Priority Associated Diagnoses Ordered: 01/30/2019 [place] DEBRIDEMENT OPEN WOUND [place] Charge Routine Foot pain, bilateral 20 SQ CM< Controlled type 2 diabetes mellitus with diabetic neuropathy, with long-term current use of insulin ([facility]) Status post amputation of lesser toe of left foot ([facility]) DM type 2 with diabetic peripheral neuropathy ([facility]) Hyperkeratosis of skin Type 2 diabetes mellitus with pressure ulcer of toe, stage 3 ([facility]) PAD (peripheral artery disease) ([facility]) Pressure ulcer of right heel, stage 3 ([facility]) Ordered: 01/30/2019 [place] DEBRIDEMENT OPEN WOUND [place] Charge Routine Foot pain, bilateral EA ADDL 20 SQ CM Controlled type 2 diabetes mellitus with diabetic neuropathy, with long-term current use of insulin ([facility]) Status post amputation of lesser toe of left foot ([facility]) DM type 2 with diabetic peripheral neuropathy ([facility]) Hyperkeratosis of skin Type 2 diabetes mellitus with pressure ulcer of toe, stage 3 ([facility]) PAD (peripheral artery disease) ([facility]) Venous stasis ulcer of left ankle limited to breakdown of skin with varicose veins ([facility]) Health Maintenance Due Date Last Done Comments MEDICARE AWV 1945 ANNUAL DIABETIC FOOT EXAM 1961 ANNUAL DIABETIC 1961 RETINOPATHY SCREENING BMI FOLLOW UP PLAN 1961 FALL SCREEN 01/17/2008 OSTEOPOROSIS SCREENING 01/17/2008 PNEUMOVAX >=65 (PPSV23) 01/17/2008 PREVNAR >=65 (PCV13) 01/17/2008 FLU VACCINE > 6 MONTHS 12/03/2018 TETANUS SHOT (ADULT) 03/08/2024 03/08/2014 documented as of this encounter Results Not on filedocumented in this encounter Visit Diagnoses Diagnosis Pressure ulcer of right heel, stage 3 ([facility]) - Primary Foot pain, bilateral Controlled type 2 diabetes mellitus with diabetic neuropathy, with long-term current use of insulin ([facility]) Status post amputation of lesser toe of left foot ([facility]) DM type 2 with diabetic peripheral neuropathy ([facility]) Type II or unspecified type diabetes mellitus with neurological manifestations, not stated as uncontrolled Onychomycosis of multiple toenails with type 2 diabetes mellitus and peripheral neuropathy ([facility]) Hyperkeratosis of skin Acquired keratoderma Type 2 diabetes mellitus with pressure ulcer of toe, stage 3 ([facility]) PAD (peripheral artery disease) ([facility]) Unspecified disorders of arteries and arterioles Pressure ulcer of dorsum of left foot, stage 2 ([facility]) Venous stasis ulcer of left ankle limited to breakdown of skin with varicose veins ([facility]) documented in this encounter Insurance Type Payer Benefit Subscriber ID Effective Phone Address Plan / Dates Group PPO [facility] DUAL xxxxxxxxx 2015-P [address] resent [address] [facility] [phone] documented as of this encounter"
--- OUTSIDE RECORDS SUMMARY | 2019-06-16 12:44 | XMS REPORT | Summary of Care ---
Author Author [facility] Organization [facility] Address Unknown Phone Unavailable Care Team Providers Care Platform Beater Name Role Phone System, Pcp Not In Unavailable Billy Whalen PCP Reason for Visit * Reason Comments Follow Up Foot Ulcer Encounter Details Care Team Description Date Type Department Forrest Narayan DPM [address] [place] [phone] Follow Up ; Foot Ulcer 02/03/2019 Office Visit [facility] Vascular Surgery [address] [place] [phone] Allergies Comments Active Allergy Reactions Severity Noted Date Clindamycin/Lincomycin Hives, 08/29/2015 Itching Levaquin Itching, Rash 08/29/2015 Penicillins Hives 03/29/2015 Tricor Hives 08/29/2015 documented as of this encounter (statuses as of 02/25/2019) Medications End Date Status Medication Sig Dispensed [...] as 9 directed every morning. Active B Tfqievp-A-Wrmfs Acid Take by 0 (NEPHRO-THAD OR) mouth daily. Active carvedilol (COREG) 6.25 TAKE 1 TABLET 180 Tab 2 MG tablet BY MOUTH 9 TWICE A DAYTAKING METOPROLOL? CALLED N/A Active pregabalin (LYRICA) 25 MG Take 100 mg 0 capsule by mouth two times daily. Active collagenase 250 UNIT/GM Apply to 1 Tube 1 ointmentIndications: affected area 9 Pressure ulcer of dorsum daily. of left foot, stage 2 ([facility]) Active mupirocin (BACTROBAN) 2 % Apply on 1 Tube 2 ointmentIndications: affected 9 Pressure ulcer of dorsum daily. of left foot, stage 2 ([facility]) 02/23/2019 Discontinued Prasugrel HCl (EFFIENT) Take 10 mg by 90 Tab 3 10 MG TABS mouth daily. 9 02/03/2019 Discontinued mupirocin (BACTROBAN) 2 % Apply on 1 Tube 2 ointment affected 9 daily. documented as of this encounter (statuses as of 02/25/2019) Active Problems Problem Noted Date palntar fasciitis 10/26/2018 Plantar fasciitis of right foot 10/26/2018 [facility] 11/03/2017 Iron deficiency anemia 03/29/2015 Chronic systolic heart failure [facility] 03/29/2015 Coronary arteriosclerosis in [place] artery 03/29/2015 Obesity 03/29/2015 Leg edema 03/29/2015 Peripheral vascular disease [facility] 03/29/2015 Diabetes mellitus [facility] 03/29/2015 Overview: Type II Angina pectoris [facility]) 03/29/2015 Homocystinemia [facility] 03/29/2015 Foot ulcer, left ([facility]) 03/29/2015 Carotid artery disease [facility]) 03/29/2015 Chronic renal insufficiency 03/29/2015 Hx of cholecystectomy 03/29/2015 Hyperlipemia 03/29/2015 Hypertension 03/29/2015 Hyperlipidemia Hypertension Coronary heart disease Peripheral vascular disease ([facility]) Diabetes mellitus [facility]) Carotid artery disease [facility] documented as of this encounter (statuses as of 02/25/2019) Social History Date Tobacco Use Types Packs/Day [...] Signs Reading Time Taken Comments Vital Sign 104/50 02/03/2019 11:27 AM CDT Blood Pressure 85 02/03/2019 11:27 AM CDT Pulse - - Temperature - - Respiratory Rate - - Oxygen Saturation - - Inhaled Oxygen Concentration - - Weight - - Height - - Body Mass Index documented in this encounter Patient Instructions * Patient Instructions* Daphnie Gaffney MA - 02/03/2019 11:43 AM CDT Thank you for choosing [facility]. You may receive a survey in the mail. Please provide comments to let us know how we can improve our patient care. Instructions for your care: Follow up in four weeks for wound care. Forrest Narayan DPM, [facility] [employer] Division of Vascular Surgery and Endovascular Therapy If you have any questions, please feel free to call us at: documented in this encounter Progress Notes * Forrest Narayan DPM - 02/03/2019 10:30 AM CDT Subjective: Amy Baltazar is a 74 y.o. female that presents today for follow-up evaluation of chronic stage 2-3 ulcer right heel 2.5 cm X 2.5 cm, which she kraft s been using Santyl and home health wound care. venous stasis ulcer excoriations medial ankle, left resolved No new complaints. she denies any nausea, vomiting, fever, or chills. Objective: BP 104/50 | Pulse 85 General: Patient is alert, responsive, NAD Lower Ext: Derm:chronic stage 2-3 ulcer right heel 2.5 cm X 2.5 cm, which she has be en using Santyl and home health wound care. venous stasis ulcer excoriations medial ankle, left resolved Vasc: Pedal pulses are not palpable bilateral lower extremity. CFT < 3 sec bilateral. Neuro: Protective threshold is not intact bilateral. DPN, bilateral Mus/Ske: Muscle strength 5/5 bilateral. Range of motion within normal limit s. Psych: Mood normal, affect normal, concentration normal Assessment and Plan: DM TYpe II DPN, bilateral PAD Bilateral chronic stage 2-3 ulcer right heel 2.5 cm X 2.5 cm, which she has been using S antyl and home health wound care. venous stasis ulcer excoriations medial ankle, left resolved Plan: Sharp debridement ofchronic stage 2-3 ulcer right heel 2.5 cm X 2.5 cm, whic h she has been using Santyl and home health wound care. Improving slowly. Eschar still present Rx Gabapentin for painful DPN, bilateral Irrigation [...] all questions were answered. Forrest Narayan DPM [employer] [facility] Department of Surgery Division of Vascular Surgery and Endovascular Therapy documented in this encounter Plan of Treatment Care Team Description Date Type Specialty Forrest Narayan DPM [address] [place] [phone] 03/03/2019 Office Visit Vascular Surgery Order Schedule Name Type Priority Associated Diagnoses Ordered: 02/25/2019 [place] DEBRIDEMENT, SKIN, SD Charge Routine Controlled type 2 SUB-Q TISSUE,=<20 SQ CM diabetes mellitus with diabetic neuropathy, with long-term current use of insulin ([facility]) Status post amputation of lesser toe of left foot ([facility]) DM type 2 with diabetic peripheral neuropathy ([facility]) Hyperkeratosis of skin Type 2 diabetes mellitus with pressure ulcer of toe, stage 3 ([facility]) PAD (peripheral artery disease) ([facility]) Pressure ulcer of right heel, stage 3 ([facility]) Health Maintenance Due Date Last Done [...] right heel, stage 3 ([facility]) - Primary Pressure ulcer of dorsum of left foot, stage 2 ([facility]) Controlled type 2 diabetes mellitus with diabetic neuropathy, with long-term current use of insulin ([facility]) Status post amputation of lesser toe of left foot ([facility]) DM type 2 with diabetic peripheral neuropathy ([facility]) Type II or unspecified type diabetes mellitus with neurological manifestations, not stated as uncontrolled Hyperkeratosis of skin Acquired keratoderma Type 2 diabetes mellitus with pressure ulcer of toe, stage 3 ([facility]) PAD (peripheral artery disease) ([facility]) Unspecified disorders of arteries and arterioles documented in this encounter Insurance Type Payer Benefit Subscriber ID Effective Phone Address Plan / Dates Group PPO [facility] DUAL xxxxxxxxx 2015-P [address] resent [address] [facility] [phone] documented as of this encounter"
[2019-06-16] MEDS ORDERED: SODIUM CHLORIDE 0.9% 1000ML 1,000 ML IV STA (12:54)
[2019-06-16] MEDS ORDERED: ONDANSETRON HCL INJ 2MG/ML 2ML 2 MG/ML VIAL IV STA (12:54)
[2019-06-16] MEDS ORDERED: SODIUM CHLORIDE 0.9% 1000ML 250 ML IV STA (12:54)
[2019-06-16] MEDS ORDERED: FENTANYL CITRATE/PF 100MCG/2 ML INJ IV ONE (13:00)
[2019-06-16] MEDS ORDERED: ASPIRIN 81 MG CHEW TAB PO ONE (13:30)
[2019-06-16] MEDS ORDERED: ONDANSETRON HCL INJ 2MG/ML 2ML 2 MG/ML VIAL IV PRN (13:30)
[2019-06-16] MEDS ORDERED: FENTANYL CITRATE/PF 100MCG/2 ML INJ IV PRN (13:30)
[2019-06-16] MEDS ORDERED: DEXTROSE 50% SYRINGE 50 ML IV PRN (13:30)
[2019-06-16 13:43] LABS: BASOPHILS % 0.2 % (0.0-1.0); EOSINOPHILS # (AUTO) 0.1 (0.0-0.4); EOSINOPHILS % 0.5 % (0.0-6.0); HEMATOCRIT 34.2 % (34.2-44.1); HEMOGLOBIN 10.4 g/dL (12.0-16.0); LYMPHOCYTES # (AUTO) 4.6 (1.0-3.2); LYMPHOCYTES % 32.2 % (18.0-39.1); MEAN CORPUSCULAR HEMOGLOBIN 30.8 pg (28-32); MEAN CORPUSCULAR HGB CONC 30.4 g/dL (31-35); MEAN CORPUSCULAR VOLUME 101.2 fL (81-99); MONOCYTES # (AUTO) 0.8 (0.2-0.8); MONOCYTES % 5.3 % (4.4-11.3); NEUTROPHILS # (AUTO) 8.8 (2.1-6.9); NEUTROPHILS % 61.1 % (38.7-80.0); PLATELET COUNT 108 x10e3/uL (140-360); RED BLOOD COUNT 3.38 x10e6/uL (3.6-5.1)
[2019-06-16 13:53] LABS: INR 0.91; PROTHROMBIN TIME 12.8 seconds (11.9-14.5)
[2019-06-16 13:54] LABS: PARTIAL THROMBOPLASTIN TIME 34.9 seconds (23.8-35.5)
[2019-06-16 13:56] LABS: COLOR,URINE STRAW (YELLOW)
[2019-06-16 13:57] LABS: BILIRUBIN,URINE NEGATIVE (NEGATIVE); CLARITY,URINE CLOUDY (CLEAR); KETONES,URINE TRACE (NEGATIVE); LEUKOCYTE ESTERASE ,URINE LARGE (NEGATIVE); NITRITE,URINE NEGATIVE (NEGATIVE); PROTEIN,URINE DIPSTICK 3+ (NEGATIVE); URINE UROBILINOGEN 0.2 mg/dL (0.2 - 1)
[2019-06-16] MEDS ORDERED: CEFTRIAXONE SOD 1 GM/NS 50 ML 50 ML IV ONE ×2 (14:00→18:00)
[2019-06-16 14:04] LABS: ALBUMIN 1.7 g/dL (3.5-5.0); ALBUMIN/GLOBULIN RATIO 0.4 (0.8-2.0); ANION GAP 30.5 mmol/L (8-16); CALCIUM 8.6 mg/dL (8.4-10.2); CREATININE, SERUM 6.96 mg/dL (0.57-1.11); MAGNESIUM 1.7 MG/DL (1.3-2.1); POTASSIUM 3.5 mmol/L (3.5-5.1)
[2019-06-16 14:09] LABS: B-TYPE NATRIURETIC PEPTIDE2 4462.4 pg/mL (0-100)
[2019-06-16] MEDS ORDERED: PIPER-TAZ 3.375 GM 50 ML IV NR (14:15)
[2019-06-16] MEDS ORDERED: LIDOCAINE1 EACH (14:16)
[2019-06-16] MEDS ORDERED: LATANOPROST2.5 ML (14:16)
[2019-06-16] MEDS ORDERED: PANTOPRAZOLE SO40 MG (14:16)
[2019-06-16] MEDS ORDERED: CALCITRIOL0.5 MCG (14:16)
[2019-06-16] MEDS ORDERED: NIFEDIAC CC60 MG (14:16)
[2019-06-16] MEDS ORDERED: SIMVASTATIN40 MG (14:16)
[2019-06-16] MEDS ORDERED: CARVEDILOL6.25 MG (14:16)
[2019-06-16] MEDS ORDERED: PREGABALIN50 MG (14:16)
[2019-06-16] MEDS ORDERED: SULFAMETHOXAZO1 EACH (14:16)
[2019-06-16] MEDS ORDERED: PREDNISONE10 MG (14:16)
[2019-06-16] MEDS ORDERED: CINACALCET HCL30 MG (14:16)
[2019-06-16] MEDS ORDERED: LEVEMIR100 UNIT/1 (14:16)
[2019-06-16] MEDS ORDERED: SEVELAMER CARB800 MG (14:16)
[2019-06-16 14:22] LABS: BACTERIA,URINE MANY /HPF; EPITHELIAL CELLS,URINE RARE /LPF; RBC,URINE 0-5 /HPF (0-5); WBC,URINE (MAN) >50 /HPF (0-5)
[2019-06-16] MEDS ORDERED: HEPARIN 25,000 UNIT/D5W 250ML 250 ML IV STA (14:23)
[2019-06-16] MEDS ORDERED: ASPIRIN 81 MG CHEW TAB PO STA (14:23)
[2019-06-16] MEDS ORDERED: CLOPIDOGREL BISULFATE 75 MG TAB PO STA (14:23)
--- NOTE | 2019-06-16 15:18 | Diagnostic Imaging Report ---
Exam: Chest one view Clinical history: Shortness of breath Findings: There is no evidence of pulmonary consolidation, pleural effusion, or pneumothorax. The cardiac size is within normal limits. The regional osseous structures are unremarkable. Signed by: Dr. Pa Owen MD on 06/16/2019 3:15 PM
--- NOTE | 2019-06-16 15:22 | Diagnostic Imaging Report ---
Exam: Left hand 3 views Clinical History: Dry gangrene Findings: There is no evidence of acute fracture or malalignment. The articular joints are well-preserved. Atherosclerotic calcification of the visualized vessels is noted. Soft tissue defect is also seen in the lateral aspect of the second digit without definite evidence of bony involvement. Clinical correlation is recommended. Impression: No radiographic evidence of acute osseous injury. Signed by: Dr. Pa Owen MD on 06/16/2019 3:20 PM
[2019-06-16] MEDS: HEPARIN 25,000 UNIT 700 UNIT in DEXTROSE 5% 250ML 250 ML IV SCH (15:30)
[2019-06-16] MEDS: INSULIN REGULAR, HUMAN 100 UNIT/1 ML 3ML VIAL SQ SCH ×2 (16:30→21:00)
[2019-06-16] MEDS ORDERED: SODIUM CHLORIDE 0.9% IV SCH (17:00)
[2019-06-16] MEDS ORDERED: SODIUM THIOSULFATE IV SCH (17:00)
--- NOTE | 2019-06-16 17:26 | NUR ---
PATIENT VERBALIZED SHE WANTS TO BE DNAR. SON AND PATIENT'S SISTER ALSO AT BEDSIDE. PT IS ALERT AND ORIENTED X3. SHE VERBALLY STATED SHE DOES NOT WANT TO BE INTUBATED OR CPR. PT DOES NOT WANT HEROIC MEASURES. SON AND PT SISTER ARE ARE IN AGREEMENT. I SPOKE WITH DR. BAKER WHO IS IN AGREEMENT. CODE STATUS CHANGED. FAMILY WILL CONTINUE TO DISCUSS WITH PATIENT FURTHER TREATMENT. AT THIS TIME, CONTINUE WITH PLAN OF CARE WITH TREATMENT BUT WILL BE DNAR.
[2019-06-16] MEDS ORDERED: CLOPIDOGREL BISULFATE 75 MG TAB PO NR (18:00)
[2019-06-16] MEDS ORDERED: ASPIRIN 81 MG CHEW TAB PO NR (18:00)
[2019-06-16] MEDS: FAMOTIDINE 20 MG/2 ML VIAL IV SCH (18:25)
--- NOTE | 2019-06-16 19:00 | NUR ---
RECEIVED PATIENT AWAKE AND ALERT. C/O PAIN IN BILATERAL FEET AND LEFT HAND. ALL FINGERS OF LEFT HAND NOTED TO BE BLACKENED AND SCHRIVELED. BILATERAL FEET DISCOLORED WITH COVERED WOUNDS, DRESSINGS C/D/I. ALL TOES TO LEFT FOOT HAVE BEEN AMPUTATED AND 1ST, 4TH AND 5TH TOES ON RIGHT FOOT HAVE BEEN AMPUTATED. DRY GAUZE WRAP APPLIED TO LEFT HAND AND HEEL PROTECTORS APPLIED TO BILATERAL FEET.
[2019-06-16] MEDS: HYDROCODONE/APAP 5MG-325MG TAB PO PRN (19:37)
[2019-06-16] MEDS ORDERED: ALTEPLASE RECOMBINANT 2 MG/2 ML VIAL IV PRN (19:45)
--- NOTE | 2019-06-16 20:00 | NUR ---
CALL PLACED FOR DR BEAN TO INFORM HER OF TROPONIN LEVEL OF 1.596 AND THAT IS TRENDING DOWNWARD. NO RETURN CALL, WILL CONTINUE TO HOLD HEOARIN PER HER INSTRUCTIONS UNTIL NEW ORDERS RECEIVED
[2019-06-16 20:21] LABS: CREATINE KINASE MB 5.2 ng/mL (0-5.0)
[2019-06-16] MEDS: SODIUM CHLORIDE 0.9% 1000ML 1,000 ML IV SCH (20:32)
--- NOTE | 2019-06-16 21:30 | NUR ---
CALL PLACED FOR DR BAKER REGARDING PATIENTS HOME MEDICATIONS, AWAITING RETURN CALL. STILL NO RETURN CALL FROM DR BEAN
[2019-06-16] MEDS: PIPERACILLIN/TAZO 2.25 GM 50 ML IV SCH (21:45)
--- NOTE | 2019-06-16 22:00 | NUR ---
SECOND CALL PLACED FOR DR BAKER, AWAITING RETURN CALL. NO RETURN CALL RECEIVED FROM DR BEAN
--- NOTE | 2019-06-16 22:47 | Consultation ---
DATE OF CONSULTATION: 06/16/2019 REASON FOR CONSULT: ESRD. HISTORY OF PRESENT ILLNESS: This is a 74-year-old female, very debilitated, on peritoneal dialysis, who has been having hypertension for the last 48 hours. Her peritoneal dialysis has changed, but she remained hypotensive. She also is scheduled to receive calciphylaxis treatment three times a week at the dialysis unit and also she receives hyperbaric for her severe peripheral vascular disease and calciphylaxis. ALLERGIES: TRICOR, LEVAQUIN, CLINDAMYCIN. PAST MEDICAL HISTORY: 1. ESRD since 05/2017 was on hemodialysis, now on peritoneal dialysis. 2. Severe peripheral vascular disease. 3. Type 2 diabetes mellitus for 30 years. 4. Hypertension for 30 years. 5. Hyperlipidemia. 6. Severe gangrenous fingers. 7. Coronary artery disease. PAST SURGICAL HISTORY: Include: 1. Bypass. 2. Cholecystectomy. 3. Left carotid and right carotid surgery. 4. Left foot amputation of all toes. 5. Right foot amputation of 1st, 4th, and 5th toe. FAMILY HISTORY: Noncontributory. SOCIAL HISTORY: No smoking, no alcohol, no drugs. MEDICATIONS: Reviewed. REVIEW OF SYSTEMS: Severe debility and positive weight gain. Denies fever and no new change in vision. No new changes in hearing. No earache. No sore throat. No chest pain. Positive shortness of breath. Positive edema. Positive severe peripheral vascular disease. PHYSICAL EXAMINATION: GENERAL: Alert following commands. HEENT: Pupils equal, reactive to light and accommodation. NECK: No JVD. No bruit. LUNGS: Rhonchi. No rales. HEART: Regular rate and rhythm. No S3, no S4. ABDOMEN: Nontender and nondistended. No hepatomegaly or splenomegaly. EXTREMITIES: No clubbing. No cyanosis. No edema. Severe gangrenous fingers and also left hand and the patient does have healing wounds on her foot. VITAL SIGNS: Temperature 97.8, blood pressure 110/78. LABORATORY DATA: White count 14, hemoglobin 10, platelets 108. Sodium 137, potassium 3.5, BUN 43, creatinine 6.9, calcium 8.6, CK-MB 6, BNP 4462, albumin 1.7. Urinalysis positive white cells, large leukocyte esterase, many bacteria. ASSESSMENT AND PLAN: 1. ESRD, on peritoneal dialysis today secondary to hypertension. We will hold dialysis. 2. Severe hypertension, most likely secondary to UTI sepsis. We are awaiting her urine culture and will be treated with IV antibiotics. 3. Severe peripheral vascular disease. She is on hyperbaric, but for now we will continue sodium thiosulfate and prednisone. She has been treated for calciphylaxis. 4. Type 2 diabetes mellitus. Monitor glucose. 5. Anemia of chronic disease. We will have the patient on Epogen once hemoglobin is below 10. 6. Severe malnutrition. We will follow the recommendation of dietary. Alec Najera MD MA/MODL /[id number]
[2019-06-17] VITALS (28 sets, daily range): BP systolic 68–114; BP diastolic 35–89
[2019-06-17] MEDS: HYDROCODONE/APAP 5MG-325MG TAB PO PRN ×2 (00:28→04:45)
--- NOTE | 2019-06-17 01:47 | Consultation ---
DATE OF CONSULTATION: 06/16/2019 Cardiology Consultation REQUESTING PHYSICIAN: Sy Whiteside MD. REASON FOR CONSULTATION: Elevated troponin. HISTORY OF PRESENT ILLNESS: This is a 74-year-old woman with history of hypertension, hyperlipidemia, diabetes mellitus, coronary artery disease, status post 2-vessel CABG in 2000, carotid artery disease, status post stent, peripheral arterial disease, status post stent, and end-stage renal disease, on peritoneal dialysis, who presents with complaints of hypotension. The patient and family reports she was in her usual state of poor health until the last few weeks when they noted her blood pressure was running lower than normal. Today, she presented for hyperbaric oxygen therapy, however, her blood pressure was low in the 70s. EMS was called and on repeat blood pressure by EMS she was found to be even more hypotensive with readings of 53/26. She was therefore brought to the ER for further evaluation. She denies any chest pain, shortness breath, palpitations, or edema. She has chronic orthopnea. The patient denies any fever or chills. In the ER, evaluation revealed leukocytosis with WBC of 14.3 as well as lactic acidosis of 2.9. Troponin elevation of 2.1, and elevated BNP at 4462. Given these findings, Cardiology is consulted for further evaluation. REVIEW OF SYSTEMS: Negative except as per HPI. PAST MEDICAL HISTORY: 1. Hypertension. 2. Hyperlipidemia. 3. Diabetes mellitus. 4. Coronary artery disease, status post 2-vessel CABG in 2000. 5. Carotid artery disease, status post stent. 6. Peripheral arterial disease, status post stent. 7. End-stage renal disease, on peritoneal dialysis. PAST SURGICAL HISTORY: 1. Foot amputation. 2. PD catheter insertion. ALLERGIES: PLEASE SEE EMR. MEDICATIONS: Please see medication list. SOCIAL HISTORY: Denies tobacco, alcohol, or illicit drugs. FAMILY HISTORY: Denies family history of heart disease. PHYSICAL EXAMINATION: VITAL SIGNS: Temperature 97.8 degrees, pulse 86, respiratory rate 20, blood pressure 110/78, oxygen 98%. GENERAL: Chronically ill-appearing woman, obese, in no acute distress. HEENT: Normocephalic and atraumatic. Pupils equal. No scleral icterus. NECK: Supple. No thyromegaly or cervical lymphadenopathy. No carotid bruits. LUNGS: Clear to auscultation bilaterally. No wheezes or crackles. CARDIOVASCULAR: Normal rate, regular rhythm. Normal S1 and S2. ABDOMEN: Soft and nontender. EXTREMITIES: No edema. Gangrenous changes were noted in the fingers bilaterally, left worse than right. NEUROLOGIC: Nonfocal exam. LABORATORY DATA: Sodium 137, potassium 3.5, chloride 92, CO2 of 18, BUN 43, creatinine 6.96. Lactic acid 2.9. Troponin 2.1. BNP 4462. TSH 6.6. WBC 14.4, hemoglobin 10.4, hematocrit 34.2, and platelets 108. EKG, sinus rhythm with PACs, old septal infarct, ST and T-wave abnormality, consider inferolateral ischemia. IMPRESSION: 1. Elevated troponin. 2. Hypotension. 3. Coronary status post, 2-vessel coronary artery bypass grafting in 2000. 4. Hypertension. 5. Hyperlipidemia. 6. Diabetes mellitus. 7. Carotid artery disease, status post stent. 8. Peripheral arterial disease. 9. End-stage renal disease, on peritoneal dialysis. RECOMMENDATION: Trend cardiac markers. The patient denies any symptoms. Suspect this is type 2 myocardial infarction due to demand in the setting of hypotension. Obtain echocardiogram. Trend troponin. Continue supportive care. Antibiotics per primary service. Monitor the patient closely on telemetry. Continue home cardiac medications. Due to current illness, we would recommend conservative medical therapy with medical management. Thank you for this consult. We will continue to follow. Kathie Quarles MD ABS/MODL /[id number]
[2019-06-17 04:54] LABS: BASOPHILS % 0.1 % (0.0-1.0); EOSINOPHILS # (AUTO) 0.1 (0.0-0.4); EOSINOPHILS % 0.5 % (0.0-6.0); HEMATOCRIT 28.6 % (34.2-44.1); HEMOGLOBIN 8.4 g/dL (12.0-16.0); LYMPHOCYTES # (AUTO) 5.3 (1.0-3.2); LYMPHOCYTES % 35.7 % (18.0-39.1); MEAN CORPUSCULAR HEMOGLOBIN 30.1 pg (28-32); MEAN CORPUSCULAR HGB CONC 29.4 g/dL (31-35); MEAN CORPUSCULAR VOLUME 102.5 fL (81-99); MONOCYTES # (AUTO) 0.8 (0.2-0.8); MONOCYTES % 5.1 % (4.4-11.3); NEUTROPHILS # (AUTO) 8.6 (2.1-6.9); NEUTROPHILS % 57.8 % (38.7-80.0); PLATELET COUNT 102 x10e3/uL (140-360); RED BLOOD COUNT 2.79 x10e6/uL (3.6-5.1); RED CELL DISTRIBUTION WIDTH 20.6 % (11.7-14.4)
[2019-06-17 05:19] LABS: ALBUMIN 1.4 g/dL (3.5-5.0); ALBUMIN/GLOBULIN RATIO 0.4 (0.8-2.0); ANION GAP 32.8 mmol/L (8-16); CALCIUM 7.6 mg/dL (8.4-10.2); CREATININE, SERUM 7.15 mg/dL (0.57-1.11); MAGNESIUM 1.7 MG/DL (1.3-2.1); PHOSPHORUS 7.6 MG/DL (2.3-4.7); POTASSIUM 3.8 mmol/L (3.5-5.1)
[2019-06-17] MEDS: PIPERACILLIN/TAZO 2.25 GM 50 ML IV SCH ×3 (05:39→21:17)
[2019-06-17 05:50] LABS: CREATINE KINASE MB 8.4 ng/mL (0-5.0)
[2019-06-17] MEDS: INSULIN REGULAR, HUMAN 100 UNIT/1 ML 3ML VIAL SQ SCH ×4 (07:30→21:00)
[2019-06-17] MEDS ORDERED: PANTOPRAZOLE SOD 40 MG TABEC PO SCH (09:00)
[2019-06-17] MEDS ORDERED: HYDROCODONE/APAP 10MG-325MG TAB PO PRN (09:00)
[2019-06-17] MEDS: FAMOTIDINE 20 MG/2 ML VIAL IV SCH ×2 (09:10→18:19)
[2019-06-17] MEDS ORDERED: EPOETIN ALFA-EPBX 10,000 UNIT/ML VIAL SC SCH (11:00)
[2019-06-17] MEDS: LEVOTHYROXINE SODIUM 25 MCG TABLET PO SCH ×2 (11:00→12:59)
[2019-06-17] MEDS ORDERED: LIDOCAINE 4% PATCH TP SCH (11:00)
[2019-06-17] MEDS: PREDNISONE 10 MG TAB PO SCH ×2 (11:00→12:59)
[2019-06-17] MEDS: PREGABALIN 50 MG CAP PO SCH ×2 (11:00→12:59)
[2019-06-17] MEDS: CINACALCET 30 MG TAB PO SCH ×3 (11:00→17:00)
--- NOTE | 2019-06-17 12:05 | NUR ---
AST MEDICAL HISTORY: 1. Hypertension. 2. Hyperlipidemia. 3. Diabetes mellitus. 4. Coronary artery disease, status post 2-vessel CABG in 2000. 5. Carotid artery disease, status post stent. 6. Peripheral arterial disease, status post stent. 7. End-stage renal disease, on peritoneal dialysis. PAST SURGICAL HISTORY: 1. Foot amputation. 2. PD catheter insertion. ALLERGIES: PLEASE SEE EMR. MEDICATIONS: Please see medication list. SOCIAL HISTORY: Denies tobacco, alcohol, or illicit drugs. FAMILY HISTORY: Denies family history of heart disease [id number]
[2019-06-17] MEDS ORDERED: BENZOCAINE 20% SPR 60 ML CAN MT PRN (12:45)
[2019-06-17] MEDS: HYDROMORPHONE 1MG/1ML INJ IV PRN ×2 (13:00→20:30)
[2019-06-17] MEDS ORDERED: PROMETHAZINE 12.5MG/ NACL 0.9% 50 ML ONE (13:11)
[2019-06-17] MEDS ORDERED: CHLORASEPTIC SPRAY 177 ML BTL MM PRN (13:15)
--- NOTE | 2019-06-17 14:36 | NUR ---
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
[2019-06-17] MEDS: HEPARIN 25,000 UNIT 700 UNIT in DEXTROSE 5% 250ML 250 ML IV SCH (15:30)
--- NOTE | 2019-06-17 15:32 | History and Physical ---
PRIMARY CARE PHYSICIAN: Dr. Berta Marie. CONSULTANTS: 1. Dr. Alec Najera. 2. Dr. Eliezer Pérez. CHIEF COMPLAINT: 1. Both hand dry gangrene, worse on the left compared to the right. 2. Both heel ischemic wound. 3. Peritoneal dialysis. 4. Hypotensive. 5. Urinary tract infection. 6. Hematuria. HISTORY OF PRESENT ILLNESS: The patient is a 74-year-old female, who has peritoneal dialysis. The patient also has severe vascular disease. She has both hand ischemia. Apparently, she [facility] and was sent to the emergency room. The patient has both hand ischemia, worse on the left compared to the right. She also has both heel foot wound as well. The patient is with severe peripheral vascular disease and difficult access. She had AV fistula that is not working due to peripheral vascular disease and ischemia. She also is getting peritoneal dialysis at home. The patient has gross hematuria. She has urinary tract infection. Antibiotics given. She was hypotensive. The patient admitted to the ICU. She is otherwise stable with pain at this time. PAST MEDICAL HISTORY: 1. Severe peripheral vascular disease. 2. End-stage renal disease since May 2017, was on hemodialysis and now on peritoneal dialysis due to access. 3. Diabetes type 2 for over 30 years. 4. Hypertension over 30 years. 5. Dyslipidemia. 6. Severe gangrenous both hands, worse on the left compared to the right. 7. Coronary artery disease with previous bypass graft surgery. 8. Multiple wounds. PAST SURGICAL HISTORY: 1. Coronary artery bypass graft. 2. Cholecystectomy. 3. Left carotid and right carotid surgery. 4. Left foot amputation of toes. 5. Right foot amputation of multiple toes area. 6. Ischemia. SOCIAL HISTORY: The patient lives at home. Very well family support. ALLERGIES: NO KNOWN ALLERGIES. MEDICATIONS: Current home medication list is reviewed. The patient was on calcitriol, Coreg, cinacalcet, Levemir insulin, multiple eye drops, nifedipine CR, Protonix, prednisone 10 mg daily, Lyrica 10 mg daily, Sevelamer, simvastatin, and Bactrim. PHYSICAL EXAMINATION: VITAL SIGNS: Temperature was 97.4, blood pressure on admission 96/41, pulse rate 84, and respirations 18. GENERAL: The patient seems to be in pain. She is not in any respiratory distress. HEENT: Normocephalic and atraumatic. NECK: Supple. PULMONARY: Diminished breath sounds. CARDIOVASCULAR: Bradycardia episodically with atrial tachycardia. EXTREMITIES: Multiple wounds. Both hand ischemic changes, worse on the left compared to the right. Foot wound as well. Sacral stage 1 to 2. LABORATORY DATA: WBC is 14.4, hemoglobin 10, hematocrit 34, and platelets 108. Chemistry; sodium 140, potassium 3.5, chloride 92, bicarb 18, BUN 43, creatinine 6.9, and glucose is 198. Lactic acid is 2.9. BNP is 4462. TSH is 6.66. Albumin is 1.7. Troponin I is 2.11 with CK-MB of 6 and CK is 51. IMPRESSION: 1. Lactic acidosis, multiorgan failure secondary to most likely urinary tract infection given urine WBC of greater than 50 with many bacteria. She also was hypotensive. She did respond to IV fluid bolus, however. 2. Type 2 myocardial infarction, most likely from stress of infection and renal disease with end-stage renal disease, on peritoneal dialysis. 3. Electrolyte disorder. 4. Hypothyroidism. 5. Severe peripheral vascular disease associated with chronic necrotic skin and extremity injury. PLAN: Continue with supportive measure. Peritoneal dialysis. IV antibiotics. Home medication. Pain control. The patient has been placed on DNR per family request. This seemed that the patient will most likely need palliative care and possible hospice care and possible stopping dialysis and comfort measure. That will be depend on the family and their discussion with previous specialists that they experience with and also her primary care physician. MD JAMIE Martinez/DERICK /[id number]
--- NOTE | 2019-06-17 15:34 | NUR ---
WOUND CARE CONSULT FOR 74 YO DEBILITATED FEMALE PATIENT HX OF DRY GANGRENE TO BILATERAL HAND DIGITS , ESRD, HYPOTENSION DANA 15 MODERATE PUP STATUS AND INTERVENTIONS AND ALTERNATING PRESSURE MATTRESS LABS: WBC- 14.94, HGB- 8.4, GLUCOSE- 109 SKIN ASSESSMENT COMPLETE PATIENT PRESENTS WITH MULTIPLE GANGRENOUS FINGERS AND LEFT HEEL ESCHAR 2CM X2CM RIGHT HEEL ESCHAR 3CM X4CM STAGE 2 SACRAL ULCERATION 6CM X4CM X.1CM RECOMMENDATIONS:NURSING TO CONTINUE TO MAINTAIN STRICT PUP STATUS AND INTERVENTIONS AND ALTERNATING PRESSURE MATTRESS NURSING TO CLEAN SACRAL STAGE 2 ULCERATION DAILY WITH NS AND APPLY VENELEX OINTMENT COVER WITH ALLEVYN FOAM DRESSING NURSING TO PAINT GANGRENOUS FINGERS AND BILATERAL HEELS DAILY WITH BETADINE Addendum: 06/17/19 at 1549 by Eliazar Galicia RN Amended: Links added.
[2019-06-17] MEDS: SODIUM CHLORIDE 0.9% 1000ML 1,000 ML IV SCH (15:35)
--- NOTE | 2019-06-17 15:42 | NUR ---
bed bath given , linens changed. pt lethargic, unable to take po meds
--- NOTE | 2019-06-17 16:42 | NUR ---
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 WILL NOTIFY CM, NURSE AND HOUSE SUP IN AM OF PROGRESS.
--- NOTE | 2019-06-17 16:49 | NUR ---
Hospice: per family and [facility] rep: patient will be discharged home to hospice approximatle 10-11am tomorrow morning. family in agreement. pt resting at this time. per family request, I called and spoke with dr. conteh. Is it okay to hold peritoneal dialysis tonight? okayed by to cancel PD. I called [facility] and left message to cancel pd for tonight. notified family as well.
--- NOTE | 2019-06-17 16:52 | Progress Note ---
DATE: 06/17/2019 Cardiology Progress Note SUBJECTIVE: The patient open eye to tactile stimuli, mostly groans in response to questions, but is able to denies chest pain or shortness of breath. Family has made decision to transition to hospice at this time. PHYSICAL EXAMINATION: VITAL SIGNS: Temperature 98.3 degrees, pulse 98, respiratory rate 14, blood pressure 100/45, and oxygen saturation 100% on room air. GENERAL: Chronically ill-appearing woman, obese, in no acute distress. LUNGS: Clear to auscultation anterior lung meyer. No wheezes or crackles. CARDIOVASCULAR: Irregularly irregular, bradycardic. Normal S1 and S2. No murmur. ABDOMEN: Soft and nontender. EXTREMITIES: No edema. Gangrenous changes noted in the fingers bilaterally, left worse than right, status post amputation of the toes. CARDIAC MEDICATIONS: Levothyroxine 25 mcg p.o. daily. LABORATORY DATA: WBC is 14.94, hemoglobin 8.4, hematocrit 28.6, and platelets 102. Sodium 140, potassium 3.8, chloride 97, CO2 14, BUN 46, and creatinine 7.15. Troponin 1.328. TELEMETRY: Atrial fibrillation. IMPRESSION: 1. Elevated troponin. 2. Hypotension. 3. Coronary artery disease, status post two-vessel coronary artery bypass grafting in 2000. 4. Hypertension. 5. Hyperlipidemia. 6. Diabetes mellitus. 7. Carotid artery disease, status post stent. 8. Peripheral arterial disease. 9. End-stage renal disease, on peritoneal dialysis. RECOMMENDATIONS: The patient's troponin is downtrending. Suspect this is type 2 myocardial infarction due to demand in the setting of hypotension and pre-existing coronary artery disease. Echocardiogram revealed severely reduced systolic function with the EF in the 20s. Continue supportive care. Antibiotics per Infectious Disease. Family has made decision to transition to hospice. Thank you for this consult. Please call with questions. Kathie Quarles MD ABS/MODL /[id number]
--- NOTE | 2019-06-17 18:49 | NUR ---
all ICU MD on patient team is aware of plan of care for hospice discharge home tomorrow. all MD aware of patient status and hr changes, bp changes and pain control for patient.
--- NOTE | 2019-06-17 19:52 | Consultation ---
DATE OF CONSULTATION: 06/17/2019 REASON FOR CONSULTATION: Sepsis, septic shock, osteomyelitis of the hands. HISTORY OF PRESENT ILLNESS: This patient who has a very complicated and progressively deteriorating condition. She is a 74-year-old female, debilitated. She has history of end-stage renal disease, on hemodialysis. She was on hemodialysis until recently last year, which was switched to peritoneal dialysis. 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 She also has progressive gangrene of her hands. She has been having problem with her hands for the last year or so with pain, initially was felt due to neuropathy. [facility], but then she also has severe gangrenous changes, and over the last couple of months, she was referred to several physicians. She was seen recently by Dr. Bey, Wound Care, who recommended steroids as well as sodium and hyperbaric for possibility of calciphylaxis. However, the patient did not improve visits to the hyperbaric probably made her worse. She does have also history of congestive heart failure, which has progressively worsened recently. Yesterday, an echocardiogram showed an ejection fraction of 20%. She also has multiple surgeries including multiple atherectomies, cholecystectomy, bypass surgery, right foot amputation of first toe and second toe . The patient was on her way to get hyperbaric when she became confused. She was found to be hypotensive. The patient was sent to the emergency room where she was admitted on June,. The patient is moaning, her daughter is at the bedside. The patient was seen and discussed the case with the Medical team including the gerentological physiotherapist, and the patient had elevated troponin. I am asked to see her to address the issue of the antibiotic. She is currently in the Intensive Care Unit, hypotensive, and in severe pain in both hands. PAST MEDICAL HISTORY: As mentioned above. PAST SURGICAL HISTORY: As mentioned above. ALLERGIES: NKA. SOCIAL HISTORY: There is no smoking, drug abuse, or alcohol abuse. FAMILY HISTORY: Hypertension, diabetes, and heart disease. The patient was currently noncommunicative. History was taken from the daughter. LABORATORY DATA: Reviewed. Her cultures are still pending, but the urine cultures showing gram-negative rods. Her white count is 14.9, hemoglobin 8.4. Her sodium is 140, potassium 3.8, creatinine 7.15. MEDICATIONS: Her medication list reviewed. She is currently on Zosyn, Pepcid, and Lyrica. PHYSICAL EXAMINATION: GENERAL: She is lethargic. VITAL SIGNS: Temperature 98.2, she had temperature of 98.3 on admission; heart rate of 83, respirations 13, and blood pressure is 99/43. HEENT: Normocephalic, not icteric. NECK: Supple. CHEST: Few crackles bilateral. COR: S1 and S2. No S3, S4, or murmur. ABDOMEN: Soft. Bowel sounds hypoactive, but present. EXTREMITIES: There is no edema. There are gangrenous changes noted in both hands with contractures of the fingers. There are also multiple amputations of toes. IMPRESSION: Sepsis, present on admission, source probably pyelonephritis, but I am also concerned about her severe peripheral vascular disease and she could have ischemic bowel in addition. The patient is currently on Zosyn. We will give 1 g vancomycin and we will give 1 dose of gentamicin. Her prognosis is poor. History of hypertension, history of hyperlipidemia, history of diabetes mellitus, neuropathy, history of severe peripheral vascular disease, history of coronary artery disease, status post coronary artery bypass graft. Discussed with the family. The patient is do not resuscitate, but they are thinking also hospice or comfort care, which I agree. We are going to have the family conference soon. I discussed and answered all their questions from Infectious Disease point of view. Thank you for asking me to see this patient. MD GENEVIEVE Polanco/DERICK /[id number]
--- NOTE | 2019-06-17 20:46 | NUR ---
ASSESSMENT: Spiritual Distress [employer] Crew Lead called back. Pt's family requested prayer. Pt identifies as Congregational. Pt's family expressing anticipatory grief. Intervention: Provided empathic listening and prayer from Congregational tradition. Outcome: Pt's family expressed appreciation for prayer and support. Will follow as able. FLORECITA Marinlain Spiritual Care Department O: [phone] Pager: [phone] ([phone] number calling from)
[2019-06-17] MEDS ORDERED: LATANOPROST(OPTH) 2.5 ML BTL OU SCH (21:00)
--- NOTE | 2019-06-17 21:00 | NUR ---
HR in the low 40's, pt exhibiting cheynne alvarado resp. Unable to obtain o2 saturation, BP 75/36. Dr Whiteside was called and notified. Family requested intellectual property legal assistant visit and mac was called to the BS
--- NOTE | 2019-06-17 21:20 | NUR ---
HR steadily dropping to the upper 30s. Only one Palauan speaking Family @ BS. House sup aware of pt condition. called family and got no response.
--- NOTE | 2019-06-17 21:36 | NUR ---
Asystole on BS monitor. Dr Whiteside called and notified. Family called and notified. ER Doctor was called to pronounce
[2019-06-18] MEDS ORDERED: BALSAM PERU/CASTOR OIL 60 GM OINT...G. TP SCH (09:00)
--- NOTE | 2019-06-19 01:32 | Discharge Summary ---
The patient on June 17, 2019. DIRECTOR OF SPECIAL SERVICES: Alec Najera MD FINAL DIAGNOSES: 1. Severe peripheral vascular disease associated with gangrenous both upper and lower extremity. 2. End-stage renal disease, required peritoneal dialysis. 3. Sepsis with shock, secondary to urinary tract infection. 4. Mydoi-qw-jzbfvct systolic dysfunction, congestive heart failure. 5. Severe anemia with multiple chronic medical problems. SUMMARY: This patient, who is a 74 years old female, long history of dialysis, peripheral vascular disease. The patient has severe ischemia of both upper and lower extremities. The patient has been receiving hyperbaric treatment as an outpatient. She developed severe sepsis on this admission. Blood pressure dropped. She became bradycardic. She was in severe pain due to her ischemia and gangrenous lower extremity. The patient was going through extensive treatment. She was suffering and did indicate to her family that she wanted comfort measure palliative care. After a long conversation with the patient's family, they decided to make the patient do not resuscitate and then subsequently allow the patient to get comfort measure. The patient was in palliative care. The patient was placed DNR and subsequently overnight, the patient . Please review for now by ER physician. The patient was comfortable on expiration. Family was by the patient's bedside. Sy Whiteside MD JT/MODL /[id number]
== END 2019-06-17 00:20 | disposition expired | DRG 871 ==
LOC: ER 12:39 → ERHOLD 13:28 → ICU 16:16
PROVIDERS: ADMIT Internal Medicine; ATTEND Internal Medicine
PROC: 5A1D70Z Performance of Urinary Filtration, Intermittent, Less than 6 Hours Per Day (ICD-10-PCS; principal; 2019-06-16)
DX: A41.9 Sepsis, unspecified organism (principal); I21.A1 Myocardial infarction type 2; N18.6 End stage renal disease; R65.21 Severe sepsis with septic shock; I50.23 Acute on chronic systolic (congestive) heart failure; E43 Unspecified severe protein-calorie malnutrition; N10 Acute pyelonephritis; E87.2 Acidosis; I12.0 Hypertensive chronic kidney disease with stage 5 chronic kidney disease or end stage renal disease; I13.2 Hypertensive heart and chronic kidney disease with heart failure and with stage 5 chronic kidney disease, or end stage renal disease; E11.52 Type 2 diabetes mellitus with diabetic peripheral angiopathy with gangrene; Z66 Do not resuscitate; Z51.5 Encounter for palliative care; E11.22 Type 2 diabetes mellitus with diabetic chronic kidney disease; D63.1 Anemia in chronic kidney disease; Z99.2 Dependence on renal dialysis; I73.9 Peripheral vascular disease, unspecified; E83.59 Other disorders of calcium metabolism; L89.152 Pressure ulcer of sacral region, stage 2; E78.5 Hyperlipidemia, unspecified; I25.10 Atherosclerotic heart disease of native coronary artery without angina pectoris; Z95.1 Presence of aortocoronary bypass graft; Z89.422 Acquired absence of other left toe(s); Z89.421 Acquired absence of other right toe(s); Z79.4 Long term (current) use of insulin
CPT/HCPCS: 36415; 51700; 71045; 80053; 81001; 82550; 82553; 82948; 83605; 83735; 83880; 84100; 84443; 84484; 85025; 85610; 85730; 87040; 87086; 87186; 93005; 93306; 99251; 99285; J0696; J1170; J2405; J2543; J2550; J7030; J7512